=== PATIENT | male | born 1945 | race Caucasian/White ===

== ENCOUNTER → 2016-10-25 | Day surgery (SDC) | payer MEDICARE ==
[~2016-10-25] VITALS: Ht 190.5 cm; Wt 104.4 kg
[~2016-10-25] MED LIST: ACETAMINOPHEN 1000 MG/100 ML VIAL IV ONE; ATOR20TA15 PO; BELLADONNA ALKALOIDS/OPIUM 60 MG SUPP RECTAL PRN; CEPH-459 PO; DEXAMETHASONE SOD PHOS 4 MG/ML VIAL ONE; DILA2TAB2 PO; DO NOT ADM ANY ANTICOAGULANT DRUGS XX PRN; FAMOTIDINE 20 MG/2 ML VIAL ONE; FENT100D T-DERMAL; HOSP BED2; INSULIN HUMAN REGULAR 1,000 UNITS/10 ML VIAL SQ PRN; LACTATED RINGER'S 1000 ML INJ 1,000 ML ONE; LACTATED RINGER'S 1000 ML IV SCH; METO50TA PO; METOCLOPRAMIDE HCL 10 MG/2 ML VIAL ONE; METOPROLOL TARTRATE 25 MG TAB PO PRN; MIDAZOLAM HCL 2 MG/2 ML VIAL ONE; MILKSUS PO; MITOMYCIN SCH; NEOSTIGMINE 3 MG/3 ML SYR IV ONE; NIFE1TAB PO; OMEP40CA2 PO; ONDANSETRON HCL 4 MG/2 ML VIAL IV PUSH ONE; ONDANSETRON HCL 4 MG/2 ML VIAL IV PUSH PRN; OXYC30TA62 PO; PERC5TAB12 PO; POLY17S PO; PRAD150C PO; PROPOFOL 200 MG/20 ML AMP IV ONE; ROLLER WALKER1 MI1; SODIUM CHLORID 0.9% 500 ML IV SCH; STOO100C PO; VESI5TAB PO; WATER STERILE FOR SCH; WHEEMIS3; ZOFR4TAB3 SL; ceFAZolin 2 GM PREMIX 50 ML IV SCH; ceFAZolin 2 GM PREMIX 50 ML ONE; ePHEDrine/NS 25 MG/5 ML SYR IV ONE; mitoMYcin 5 MG VIAL ONE; oxyCODONE/ACETAMINOPHEN 5 MG/325 MG TAB PO PRN
[2016-10-25 10:42] VITALS: BP 128/84; PULSE 89; RESP 16; TEMP 99.4; O2SAT 96
[2016-10-25 11:07] LABS: AUTOMATED NEUTROPHIL # 5.4 TH/MM3 (1.8-7.7); BASOPHIL % 0.3 % (0.0-2.0); EOSINOPHIL # 0.1 TH/MM3 (0-0.4); HEMO FLAGS DIFF FINAL; LYMPH % 12.4 % (9.0-44.0); LYMPHOCYTE # 0.9 TH/MM3 (1.0-4.8); MEAN CELL VOLUME 88.6 FL (80.0-100.0); MEAN CORPUSCULAR HEMOGLOBIN 30.8 PG (27.0-34.0); MEAN CORPUSCULAR HGB CONC 34.7 % (32.0-36.0); MONO % 9.2 % (0.0-8.0); NEUT % 76.1 % (16.0-70.0); PLATELET COUNT 171 TH/MM3 (150-450); RED CELL DISTRIBUTION WIDTH 13.7 % (11.6-17.2); WHITE BLOOD COUNT 7.1 TH/MM3 (4.0-11.0)
--- NOTE | 2016-10-25 14:39 | PD.OP ---
Operative Report Date of Surgery: Oct 25, 2016 Preoperative Diagnosis: (1) Bladder cancer Postoperative Diagnosis: (1) Bladder cancer Procedure: Cystoscopy, will find out transurethral resection of multiple bladder tumors encompassing a surface area greater than 5 cm involving all sides of the bladder and intravesical instillation of mitomycin C. Anesthesia: General Surgeon: Alexys Duncan Inpatient Care Manager Rn(s): None Operation and Findings: Indication for procedure: This very pleasant 70 year-old gentleman who is status post cystoscopy and transurethral resection of multiple bladder tumors last April who presents now with symptoms of hematuria. Recent cystoscopic evaluation demonstrated multiple recurrent bladder tumors involving all areas of the bladder. Presents now for cystoscopy, transurethral resection of recurrent bladder tumors and intravesical instillation of mitomycin C. Findings: Multiple bladder tumors involving all leija of the bladder encompassing a surface area greater than 5 cm. Operative procedure in detail: Patient was brought to the operating room suite and placed supine on the OR table. He was then placed under general anesthesia. He was then repositioned in the dorsolithotomy position and prepped and draped in normal sterile fashion. Cystoscopy was then performed utilizing the rigid cystoscope with a 21 Chadian sheath and 30 lens. There was patent without stricture formation, the prostate was nonobstructing. The urinary bladder was emptied and the patient was noted to have multiple bladder tumors diffusely. Most are on very narrow stalks. The entire surface area was greater than 5 cm. Both right and left ureteral orifices were in correct anatomic position effluxing clear yellow urine. I then exchanged the cystoscope for the resectoscope with the 24 Chadian cutting loop. I then proceeded with transurethral resection of the multiple recurrent bladder tumors. Also tumors were resected the iliac evacuator was utilized to obtain specimen. Next a 20 Chadian 10 cc Saha catheter was placed and the bladder instilled with 40 mg/10 cc of mitomycin-C and the Saha clamped off. The patient was socially transferred to the PACU in stable condition having tolerated the procedures well. Alexys Duncan MD Oct 25, 2016 14:39
[2016-10-25 16:15] VITALS: BP 144/93; PULSE 98; RESP 18; TEMP 98.4; O2SAT 98
== END | disposition home or self-care (01) ==
LOC: HSDC 09:48
PROVIDERS: ATTEND Urology
DX: C67.9 Malignant neoplasm of bladder, unspecified (principal); E78.5 Hyperlipidemia, unspecified
CPT/HCPCS: 00912; 52240; 85025; 88307; J0131; J0690; J1100; J2250; J2405; J2710; J3010; J7120; J9280; J2765

== ENCOUNTER 2016-11-01 09:13 | Inpatient (IN) | payer MEDICARE ==
[~2016-11-01] VITALS: Ht 190.5 cm; Wt 107.9 kg
[~2016-11-01 09:13] MED LIST changes: -ACETAMINOPHEN 1000 MG/100 ML VIAL IV ONE; -BELLADONNA ALKALOIDS/OPIUM 60 MG SUPP RECTAL PRN; -DEXAMETHASONE SOD PHOS 4 MG/ML VIAL ONE; -DILA2TAB2 PO; -DO NOT ADM ANY ANTICOAGULANT DRUGS XX PRN; -FAMOTIDINE 20 MG/2 ML VIAL ONE; -FENT100D T-DERMAL; -HOSP BED2; -INSULIN HUMAN REGULAR 1,000 UNITS/10 ML VIAL SQ PRN; -LACTATED RINGER'S 1000 ML INJ 1,000 ML ONE; -LACTATED RINGER'S 1000 ML IV SCH; -METOCLOPRAMIDE HCL 10 MG/2 ML VIAL ONE; -METOPROLOL TARTRATE 25 MG TAB PO PRN; -MIDAZOLAM HCL 2 MG/2 ML VIAL ONE; -MILKSUS PO; -MITOMYCIN SCH; -NEOSTIGMINE 3 MG/3 ML SYR IV ONE; -ONDANSETRON HCL 4 MG/2 ML VIAL IV PUSH ONE; -ONDANSETRON HCL 4 MG/2 ML VIAL IV PUSH PRN; -POLY17S PO; -PROPOFOL 200 MG/20 ML AMP IV ONE; -ROLLER WALKER1 MI1; -SODIUM CHLORID 0.9% 500 ML IV SCH; -WATER STERILE FOR SCH; -WHEEMIS3; -ZOFR4TAB3 SL; -ceFAZolin 2 GM PREMIX 50 ML IV SCH; -ceFAZolin 2 GM PREMIX 50 ML ONE; -ePHEDrine/NS 25 MG/5 ML SYR IV ONE; -mitoMYcin 5 MG VIAL ONE; -oxyCODONE/ACETAMINOPHEN 5 MG/325 MG TAB PO PRN
[2016-11-01 09:16] VITALS: BP 136/63; PULSE 56; RESP 20; TEMP 98.1; O2SAT 98
[2016-11-01] MEDS ORDERED: ONDANSETRON HCL 4 MG/2 ML VIAL IV PUSH ONE (09:45)
[2016-11-01] MEDS ORDERED: MORPHINE SULFATE 4 MG/ML INJ IV PUSH ONE (09:45)
--- NOTE | 2016-11-01 09:46 | PD ---
HPI Chief Complaint: Pain: Acute or Chronic Time Seen by Provider: 09:25 Travel History International Travel<30 days: No Contact w/Intl Traveler<30days: No Traveled to known affect area: No History of Present Illness HPI The patient is a 71-year-old male who presents emergency department for back pain. The patient has a recent diagnosis of bladder cancer and is undergone 2 surgeries by his urologist, Dr. Duncan. The patient just had his Saha catheter removed this morning by the urologist nurse, however, he came to the emergency department for increasing pain. The patient states the pain is located in the mid right aspect of the lower back and radiates down the right leg. The patient had an outpatient MRI performed by his neurologist, Dr. Tran, which revealed questionable metastasis. The patient states he was followed by his primary physician, Dr. Mendoza, however, he states his physician retired. The patient was referred to see Dr. Day, however, does not have an appointment tomorrow third. Patient is had increasing pain of the last 3 months however, this progressively increased over the last 2 weeks. The patient is requesting pain relief of the lower back pain. He denies any nausea , vomiting, or abdominal pain. PFSH Past Medical History Arthritis: Yes Blood Disorders: No Cancer: Yes (lots of skin cancer/bladder ca) Cardiovascular Problems: Yes (HTN) High Cholesterol: No Endocrine: No Gastrointestinal Disorders: Yes GERD: Yes Genitourinary: Yes (TUMORS IN BLADDER) Hypertension: Yes Immune Disorder: No Kidney Stones: Yes Musculoskeletal: Yes Psychiatric: No Reproductive: No Respiratory: No Tetanus Vaccination: Unknown Past Surgical History Other Surgery: No Social History Alcohol Use: No Tobacco Use: No Substance Use: No Allergies-Medications (Allergen,Severity, Reaction): Coded Allergies: Iodine (Verified Allergy, Unknown, pt states he is not allergic to anymore /contrast, 11/01/16) pt states he is not allergic to anymore/contrast Reported Meds & Prescriptions Reported Meds & Active Scripts Active Percocet (Oxycodone-Acetaminophen) 5-325 mg Tab 1-2 Tab PO Q6H PRN Reported Stool Softener (Docusate Sodium) 100 Mg Cap 1 Tab PO EVERY OTHER DAY Nifedipine ER 24 HR (Nifedipine) 90 Mg Tab 90 Mg PO BID Omeprazole 40 Mg Cap 40 Mg PO DAILY Metoprolol Tartrate 50 Mg Tab 50 Mg PO BID Atorvastatin (Atorvastatin Calcium) 20 Mg Tab 20 Mg PO HS Review of Systems Except as stated in HPI: all other systems reviewed are Neg General / Constitutional: No: Fever Cardiovascular: No: Chest Pain or Discomfort Respiratory: No: Shortness of Breath Gastrointestinal: No: Nausea, Vomiting, Abdominal Pain Genitourinary: Positive: Other (currently being treated for bladder cancer) Musculoskeletal: Positive: Pain (low back pain that radiates down the right leg ) Neurologic: No: Paresthesia, Sensory Disturbance Physical Exam Narrative GENERAL: Awake, alert, 71-year-old male appears his stated age and appears in moderate discomfort. SKIN: Warm and dry. HEAD: Atraumatic. Normocephalic. EYES: Pupils equal and round. No scleral icterus. No injection or drainage. ENT: No nasal bleeding or discharge. Mucous membranes pink and moist. NECK: Trachea midline. No JVD. CARDIOVASCULAR: Regular rate and rhythm. No murmur appreciated. RESPIRATORY: No accessory muscle use. Clear to auscultation. Breath sounds equal bilaterally. GASTROINTESTINAL: Abdomen soft, non-tender, nondistended. No rebound tenderness. Back: No tenderness over the thoracic or lumbar vertebrae. MUSCULOSKELETAL: No obvious deformities. No clubbing. No cyanosis. No edema. NEUROLOGICAL: Awake and alert. No obvious cranial nerve deficits. Motor grossly within normal limits. Normal speech. PSYCHIATRIC: Appropriate mood and affect; insight and judgment normal. Data Data Last Documented VS Vital Signs Date Time Temp Pulse Resp B/P Pulse Ox O2 Delivery O2 Flow Rate FiO2 11/01/16 09:16 98.1 56 20 136/63 98 Orders Morphine Inj (Morphine Inj) (11/01/16 09:45) Ondansetron Inj (Zofran Inj) (11/01/16 09:45) Complete Blood Count With Diff (11/01/16 09:31) Basic Metabolic Panel (Bmp) (11/01/16 09:31) Urinalysis - C+S If Indicated (11/01/16 09:31) Admit Order (Ed Use Only) (11/01/16 10:38) Labs Laboratory Tests Test 11/01/16 09:45 White Blood Count 8.4 TH/MM3 Red Blood Count 5.22 MIL/MM3 Hemoglobin 15.9 GM/DL Hematocrit 45.9 % Mean Corpuscular Volume 87.8 FL Mean Corpuscular Hemoglobin 30.4 PG Mean Corpuscular Hemoglobin 34.6 % Concent Red Cell Distribution Width 13.5 % Platelet Count 291 TH/MM3 Mean Platelet Volume 7.5 FL Neutrophils (%) (Auto) 85.4 % Lymphocytes (%) (Auto) 9.3 % Monocytes (%) (Auto) 4.6 % Eosinophils (%) (Auto) 0.4 % Basophils (%) (Auto) 0.3 % Neutrophils # (Auto) 7.2 TH/MM3 Lymphocytes # (Auto) 0.8 TH/MM3 Monocytes # (Auto) 0.4 TH/MM3 Eosinophils # (Auto) 0.0 TH/MM3 Basophils # (Auto) 0.0 TH/MM3 CBC Comment DIFF FINAL Differential Comment Sodium Level 134 MEQ/L Potassium Level 3.3 MEQ/L Chloride Level 99 MEQ/L Carbon Dioxide Level 20.4 MEQ/L Anion Gap 15 MEQ/L Blood Urea Nitrogen 12 MG/DL Creatinine 1.58 MG/DL Estimat Glomerular Filtration 43 ML/MIN Rate Random Glucose 187 MG/DL Calcium Level 8.7 MG/DL [facility] Medical Decision Making Medical Screen Exam Complete: Yes Emergency Medical Condition: Yes Interpretation(s) MRI lumbar spine with and without contrast performed and [facility] reveals enhancing intraosseous lesion and L2 extending into the right lateral mass, posterior elements, transverse process with surrounding chronic soft tissue and no foraminal involvement, impinging the L2 nerve root, suggestive of metastatic disease until proven otherwise, less likely inflammatory. Second rim enhancing lesion in the sacrum slightly eccentric to the right measures 1.5 cm and a third L defined enhancement of the left sacrum adjacent to the sacroiliac joint. Bone scan screening for call carcinoma suggested. This disease with grade 1 anterolisthesis L4 5. Accommodation of disc herniation and a facet hypertrophy is present no in the neural foramina impinging the L5 nerve roots. There is an underlying pars defect. Disc herniation L5-S1 eccentric to the left. There is left lateral recess narrowing impinging the descending S1 nerve root. There is bilateral foraminal narrowing abutting L5 nerve roots. Laboratory Tests Test 11/01/16 09:45 White Blood Count 8.4 TH/MM3 Red Blood Count 5.22 MIL/MM3 Hemoglobin 15.9 GM/DL Hematocrit 45.9 % Mean Corpuscular Volume 87.8 FL Mean Corpuscular Hemoglobin 30.4 PG Mean Corpuscular Hemoglobin 34.6 % Concent Red Cell Distribution Width 13.5 % Platelet Count 291 TH/MM3 Mean Platelet Volume 7.5 FL Neutrophils (%) (Auto) 85.4 % Lymphocytes (%) (Auto) 9.3 % Monocytes (%) (Auto) 4.6 % Eosinophils (%) (Auto) 0.4 % Basophils (%) (Auto) 0.3 % Neutrophils # (Auto) 7.2 TH/MM3 Lymphocytes # (Auto) 0.8 TH/MM3 Monocytes # (Auto) 0.4 TH/MM3 Eosinophils # (Auto) 0.0 TH/MM3 Basophils # (Auto) 0.0 TH/MM3 CBC Comment DIFF FINAL Differential Comment Sodium Level 134 MEQ/L Potassium Level 3.3 MEQ/L Chloride Level 99 MEQ/L Carbon Dioxide Level 20.4 MEQ/L Anion Gap 15 MEQ/L Blood Urea Nitrogen 12 MG/DL Creatinine 1.58 MG/DL Estimat Glomerular Filtration 43 ML/MIN Rate Random Glucose 187 MG/DL Calcium Level 8.7 MG/DL EKG reveals atrial fibrillation with a rate 82. Inverted T-wave in lead 3. Differential Diagnosis Differential diagnosis includes metastatic cancer, bone metastasis, bladder cancer, sciatica, herniated disc with radiculopathy, chronic pain. Narrative Course IV was established, labs are drawn and sent, and the patient was placed on cardiac telemetry monitoring and continuous pulse oximetry monitoring. We received the MRI report from the patient's neurologist office, Dr. Tran, which reveals an MRI with possibility/suggestive of metastatic disease. Patient received morphine, Zofran, and IV fluids. The patient will be admitted to the medical service with consultation oncology, patient may benefit from neurosurgical evaluation and radiation oncology for possible metastasis and ongoing pain. Creatinine is mildly elevated at 1.58. Patient will be admitted to the medical service. Physician Communication Physician Communication The on-call medical service was paged for admission. I discussed the patient with Dr. Sim who agrees with admission. Diagnosis Primary Impression: Bladder cancer Qualified Code: C67.9 - Malignant neoplasm of urinary bladder, unspecified site Additional Impression: Metastatic bone cancer Admitting Information Admitting Physician Requests: Admit Condition: Stable Adam Fabian MD Nov 01, 2016 09:46 Adam Fabian MD Nov 01, 2016 09:46
[2016-11-01 10:02] LABS: AUTOMATED NEUTROPHIL # 7.2 TH/MM3 (1.8-7.7); BASOPHIL % 0.3 % (0.0-2.0); EOSINOPHIL % 0.4 % (0.0-4.0); HEMATOCRIT 45.9 % (39.0-51.0); HEMO FLAGS DIFF FINAL; LYMPH % 9.3 % (9.0-44.0); LYMPHOCYTE # 0.8 TH/MM3 (1.0-4.8); MEAN CELL VOLUME 87.8 FL (80.0-100.0); MEAN CORPUSCULAR HEMOGLOBIN 30.4 PG (27.0-34.0); MEAN CORPUSCULAR HGB CONC 34.6 % (32.0-36.0); MONO % 4.6 % (0.0-8.0); NEUT % 85.4 % (16.0-70.0); PLATELET COUNT 291 TH/MM3 (150-450); RED BLOOD COUNT 5.22 MIL/MM3 (4.50-5.90); RED CELL DISTRIBUTION WIDTH 13.5 % (11.6-17.2); WHITE BLOOD COUNT 8.4 TH/MM3 (4.0-11.0)
[2016-11-01 10:23] LABS: BICARBONATE 20.4 MEQ/L (21.0-32.0); POTASSIUM 3.3 MEQ/L (3.5-5.1)
--- NOTE | 2016-11-01 11:12 | HHI.HP ---
HPI Service Family Medicine Primary Care Physician No Primary Care Physician Admission Diagnosis bladder cancer with probable bone metastasis, back pain Diagnoses: International Travel<30 Days: No Contact w/Intl Traveler<30days: No Known Affected Area: No History of Present Illness Mr. Ignacio is a 71 y/o CM with a PMHx of urinary bladder carcinoma presents with worsening back pain. He is accompanied by his and younger step-sister who assist with the history. In April of 2016 he was diagnosed with bladder carcinoma after being admitted for urinary retention. He states 5 tumors were removed surgically by Dr. Duncan, urology, with the pathology report of low grade. He did not require any radiation or chemotherapy treatments and was told to follow up in 6 months for routine cystoscopy which showed multiple new tumors. His tumors were surgically removed by Dr. Duncan last week, 10/25/16, with pathology currently pending. Approximately 3 months ago (August) he began having lower back pain. He states that the pain has progressed over that time from a small area in his lower back to his entire lower back and down his R leg to his mid thigh on the anterior and lateral sides. He describes the pain as throbbing with episodes of sharp, shooting, 10/10 pain. He has been on Percocet 5mg and recently increased to 10mg Q6H, but currently is not controlling his pain. An MRI was completed on 10/18 of his lower back was ordered by Dr. Pizano, orthopedic surgeon, to evaluate his pain as he is s/p R hip replacement. The MRI shows a possibility of metastasis to the lumbar spine. Of note, he followed up with Dr. Duncan this morning and had is catheter removed post-procedure He has voided one time with pink-tinged urine. (Dex Burgos MD R1) Review of Systems Constitutional: COMPLAINS OF: Fever, Weight loss, Chills, Dizziness Endocrine: DENIES: Polyphagia Eyes: COMPLAINS OF: Blurred vision Ears, nose, mouth, throat: DENIES: Vertigo, Throat pain, Running Nose Respiratory: DENIES: Cough, Shortness of breath Cardiovascular: DENIES: Chest pain, Palpitations Gastrointestinal: COMPLAINS OF: Constipation, Diarrhea, Nausea, Vomiting Musculoskeletal: COMPLAINS OF: Joint pain, Back pain Integumentary: DENIES: Rash Hematologic/lymphatic: DENIES: Lymphadenopathy Immunologic/allergic: DENIES: Urticaria Neurologic: DENIES: Headache, Seizures Psychiatric: DENIES: Mood changes (Dex Brugos MD R1) Past Family Social History Past Medical History Hypertension Dyslipidemia Skin cancer - Melanoma, SCC Bladder cancer - April 2016 Kidney stones Acid reflux Atrial fibrillation - Pradaxa 150mg BID held due to recent surgery (Dr. Young) Past Surgical History R Hip replacement - Dr. Pziano Bladder cancer removal - April (Pathology all low grade) October 2015 ( Pathology pending) Multiple dermatologic procedures (Dex Burgos MD R1) Allergies: Coded Allergies: Iodine (Verified Allergy, Unknown, pt states he is not allergic to anymore /contrast, 11/01/16) pt states he is not allergic to anymore/contrast Family History Father - [place] at 41 y/o past away Mother - DM, Breast cancer Sister - DM, heart problems Sister - unknown Social History Alcohol - Prior history of alcohol abuse, sober since 2000 Smoke - Denies history Illicit - Denies Code Status: Lives in [place] with , younger step-sister, and step-mother. 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 (Dex Burgos MD R1) Physical Exam Vital Signs Vital Signs Date Time Temp Pulse Resp B/P Pulse Ox O2 Delivery O2 Flow Rate FiO2 11/01/16 09:16 98.1 56 20 136/63 98 Physical Exam GENERAL: Well nourished, well developed 71 y/o CM in no acute distress. Currently wrapped in warm towels as he has a "chill." SKIN: Cool and dry. No rashes, ecchymosis, or trauma appreciated. HEENT: Atraumatic, normocephalic with EOMI. PERRLA. MMM. Oropharynx clear without tonsillar exudate. No palpable LAD, thyromegaly, or thyroid nodules appreciated. No rhinorrhea. CARDIOVASCULAR: RRR with no MGR. RESPIRATORY: CTAB with no CRW. No increased WOB. GASTROINTESTINAL: Abdomen soft, non-tender, nondistended with +BS. No palpable masses. MUSCULOSKELETAL: Extremities without cyanosis or edema. 2+ pulses in all 4 extremities. No CVA tenderness or tenderness over lumbar/thoracic spine. NEUROLOGICAL: AAOx3. Cranial nerves II through XII intact. Motor and sensory grossly within normal limits. Normal speech. Laboratory Laboratory Tests Test 11/01/16 09:45 White Blood Count 8.4 Red Blood Count 5.22 Hemoglobin 15.9 Hematocrit 45.9 Mean Corpuscular Volume 87.8 Mean Corpuscular Hemoglobin 30.4 Mean Corpuscular Hemoglobin 34.6 Concent Red Cell Distribution Width 13.5 Platelet Count 291 Mean Platelet Volume 7.5 Neutrophils (%) (Auto) 85.4 Lymphocytes (%) (Auto) 9.3 Monocytes (%) (Auto) 4.6 Eosinophils (%) (Auto) 0.4 Basophils (%) (Auto) 0.3 Neutrophils # (Auto) 7.2 Lymphocytes # (Auto) 0.8 Monocytes # (Auto) 0.4 Eosinophils # (Auto) 0.0 Basophils # (Auto) 0.0 CBC Comment DIFF FINAL Differential Comment Sodium Level 134 Potassium Level 3.3 Chloride Level 99 Carbon Dioxide Level 20.4 Anion Gap 15 Blood Urea Nitrogen 12 Creatinine 1.58 Estimat Glomerular Filtration 43 Rate Random Glucose 187 Calcium Level 8.7 (Dex Burgos MD R1) Result Diagram: 11/01/16 0945 11/01/16 0945 Assessment and Plan Assessment and Plan Mr. Ignacio is a 71 y/o CM with a PMHx of urinary bladder carcinoma presenting with worsening back pain likely secondary to metastasis to the lumbar spine. Code Status FULL Discussed Condition With Dr. Fabian, ER physician Dr. Marjorie Sim (Dex Burgos MD R1) Attending Attestation Patient seen and examined. Case reviewed and discussed with the resident team. Agree with plan of care as discussed with me and documented in the resident note. he was seen in the ED by me with his and residents present (Yamilet Amador MD) Problem List: (1) Metastatic bone cancer Status: Acute Plan: Patient with history of urinary bladder carcinoma s/p multiple tumor resections presenting with progressing lower back pain. MRI shows possible metastasis to the lumbar spine. He will be admitted for oncology consultation, pain management, and possible therapeutic procedures. MRI Impression from [facility] 1. Enhancing interosseous lesion at L2 extending into the right lateral mass; posterior elements and transverse process with surrounding necrotic soft tissue and neuro foramina involvement, impinging on the L2 nerve root, suggestive of metastatic disease until proven otherwise, less likely inflammatory. Secondary enhancing lesion in the sacrum slightly eccentric to the right measures 1.5 cm and a third ill-defined enhancement of the left sacrum adjacent to the sacroiliac joint. Bone scan and screening for occult carcinoma suggested. 2. Disc disease with grade 1 anterolisthesis L4-L5. Combination of disc herniation and facet hypertrophy is present narrowing the neural for him in a impinging on the L5 nerve roots. There is an underlying pars defect. 3. Herniation L5-S1 eccentric to the left. There is left lateral recess narrowing impinging the descending S1 nerve root. There is bilateral foraminal narrowing abutting the L5 nerve root. Pain Contol: Starbuck 5 mg for pain 1-5 every 6 hours, Starbuck 10 mg for pain 6-10 every 6 hours, morphine 4 mg every 3 hours when necessary for breakthrough pain Consult Oncology, appreciated recommendations Consult Radiation Oncology, appreciate recommendations (2) Bladder cancer Status: Acute Plan: April of 2016 he was diagnosed with bladder carcinoma. 5 tumors were removed surgically by Dr. Duncan, urology, with the pathology report of low grade in April 2016. He did not require any radiation or chemotherapy treatments. Follow up cystoscopy showed multiple new tumors which were surgically removed by Dr. Duncan last week, 10/25/16, with pathology currently pending. Saha catheter removed today in office, patient voided once so far in ER with light pink urine. Strict I/Os monitoring for hematuria Please see plan as above (3) Catheter-associated urinary tract infection Status: Acute Plan: Patient with recent Saha catheter removal (11/01/16). UA concerning for possible UTI with UC to follow. -UA: Protein 30, Moderate occult blood, Large leukocyte esterase, Many WBC clumps, Rare bacteria, Few mucus, No yeast -UC: Pending -Treat with Ceftriaxone 1g QD due to clinical setting (4) Constipation Status: Acute Plan: Patient complaining of constipation likely due to his pain medication at home. He reports no bowel movement in 3 days with his last bowel movement consisting of liquid diarrhea. Dulcolax 10 mg daily when necessary for constipation Milk of magnesia 30 mL twice a day when necessary for constipation Continue to monitor (5) Creatinine elevation Status: Resolved Plan: Patient with serum creatinine of 1.58. Per chart review normal creatinine in April 2016 at 1.15. Creatinine elevated to 1.58 Normal saline at 75 mL per hour Encourage PO fluids with regular diet Continue monitor (6) Atrial fibrillation Status: Chronic Plan: Patient with history of atrial fibrillation seen by Dr. Young. Continue metoprolol 50 mg twice a day Home Pradaxa held prior to his surgery last week with instructions to continue medication 24 hours after Saha catheter was removed and without signs of blood in his urine. Monitor urine for hematuria, likely start anticoagulation tomorrow (7) Acid reflux disease Status: Chronic Plan: Patient with history of acid reflux disease Continue omeprazole 40 mg daily (8) Hyperlipidemia Status: Chronic Plan: Patient with history of hyperlipidemia Continue atorvastatin 20 mg daily at bedtime (9) HTN (hypertension) Status: Chronic Plan: Patient with history of hypertension Continue metoprolol 50 mg twice a day Continue nifedipine 90 mg twice a day Hydralazine 10 mg every 6 hours when necessary for systolic blood pressure greater than 180 or diastolic blood pressure greater than 110 (10) Nutrition, metabolism, and development symptoms Status: Acute Plan: Fluids: NS at 75 ml/hr Diet: Heart healthy as tolerated Electrolytes: Sodium 134, potassium 3.3 (repleted KCl 40 mEq by mouth), creatinine 1.58, glucose 187; continue to monitor GI: Omeprazole daily, Zofran when necessary Preventative: Tylenol when necessary for fever DVT: FIGUEROA/SCDs (Dex Burgos MD R1) Physician Certification 2 Midnight Certification Type: Admission for Inpatient Services Order for Inpatient Services The services are ordered in accordance with Medicare regulations or non- Medicare payer requirements, as applicable. In the case of services not specified as inpatient-only, they are appropriately provided as inpatient services in accordance with the 2-midnight benchmark. Estimated LOS (days): 3 3 days is the estimated time the patient will need to remain in the hospital, assuming treatment plan goals are met and no additional complications. Post-Hospital Plan: Home (Dex Burgos MD R1) Problem Qualifiers (1) Bladder cancer: Qualified Code: C67.9 - Malignant neoplasm of urinary bladder, unspecified site (2) Catheter-associated urinary tract infection: Qualified Code: T83.511A - Urinary tract infection associated with catheterization of urinary tract, unspecified indwelling urinary catheter type, initial encounter (3) Constipation: Qualified Code: K59.03 - Drug-induced constipation (4) Atrial fibrillation: Qualified Code: I48.91 - Atrial fibrillation, unspecified type (5) Acid reflux disease: Qualified Code: K21.9 - Gastroesophageal reflux disease, esophagitis presence not specified (6) Hyperlipidemia: Qualified Code: E78.5 - Hyperlipidemia, unspecified hyperlipidemia type (7) HTN (hypertension): Qualified Code: I10 - Essential hypertension Dex Burgos MD R1 Nov 01, 2016 11:12 Yamilet Amador MD Nov 03, 2016 13:39
[2016-11-01] MEDS ORDERED: SODIUM CHLOR 0.45% 1000 ML INJ 1,000 ML IV SCH (11:59)
[2016-11-01] MEDS ORDERED: POTASSIUM CHLORIDE 10 MEQ CONTROLLED RELEASE TAB PO ONE (12:00)
[2016-11-01] MEDS ORDERED: MAGNESIUM HYDROXIDE SUSP 30 ML CUP PO PRN (12:00)
[2016-11-01] MEDS ORDERED: ACETAMINOPHEN 325 MG TAB PO PRN (12:00)
[2016-11-01] MEDS ORDERED: NALOXONE HCL 0.4 MG/ML AMP IV PRN (12:00)
[2016-11-01] MEDS ORDERED: BISACODYL 10 MG SUPP PR PRN (12:00)
[2016-11-01] MEDS ORDERED: SODIUM CHLORIDE 0.9% FLUSH 5 ML FLUSH FLUSH PRN (12:00)
[2016-11-01] MEDS ORDERED: ACETAMINOPHEN/HYDROcodone 325 MG/5 MG TAB PO PRN (12:00)
[2016-11-01] MEDS: SODIUM CHLORIDE 0.9% FLUSH 5 ML FLUSH FLUSH SCH ×2 (12:52→21:42)
[2016-11-01 13:21] LABS: BACTERIA, URINE RARE /hpf; BLOOD, URINE MOD (NEG); COMMENT (UR) CULTURE INDICATED; CULTURE IF INDICATED CULTURE INDICATED; GLUCOSE,URINE NEG (NEG); KETONE, URINE NEG (NEG); MUCUS URINE FEW /lpf (OCC); NITRITE,URINE NEG (NEG); URINE COLOR YELLOW (YELLW/STRAW)
[2016-11-01 13:43] VITALS: O2SAT 94
[2016-11-01] MEDS: MORPHINE SULFATE 4 MG/ML INJ IV PRN ×2 (13:52→17:11)
[2016-11-01] MEDS ORDERED: hydrALAZINE HCL 10 MG TAB PO PRN (15:15)
[2016-11-01] MEDS ORDERED: ONDANSETRON HCL 4 MG/2 ML VIAL IV PRN (15:30)
[2016-11-01 16:18] LABS: TOTAL BILIRUBIN ADULT 0.5 MG/DL (0.2-1.0)
[2016-11-01 16:21] VITALS: BP 146/68; PULSE 84; RESP 18; O2SAT 97
[2016-11-01 16:30] VITALS: BP 149/88; PULSE 80; RESP 16; TEMP 97.5; O2SAT 97
[2016-11-01 16:32] LABS: INDIRECT BILIRUBIN 0.4 MG/DL (0.0-0.8)
[2016-11-01] MEDS: SODIUM CHLOR 0.9% 1000 ML INJ 1,000 ML IV SCH (17:39)
[2016-11-01] MEDS: MORPHINE SULFATE 4 MG/ML INJ IV PUSH SCH (19:43)
[2016-11-01 20:16] VITALS: BP 141/87; PULSE 85; RESP 18; TEMP 97.7; O2SAT 93
[2016-11-01] MEDS: METOPROLOL TARTRATE 50 MG TAB PO SCH (21:40)
[2016-11-01] MEDS: NIFEdipine 90 MG SUSTAINED RELEASE TAB PO SCH (21:40)
[2016-11-01] MEDS: ATORVASTATIN 20 MG TAB PO SCH (21:40)
[2016-11-01] MEDS: ACETAMINOPHEN/HYDROcodone 325 MG/10 MG TAB PO PRN (21:41)
--- NOTE | 2016-11-01 22:00 | RADRPT ---
EXAM DATE/TIME: 11/01/2016 19:59 [facility] COMPARISON: CT ABDOMEN & PELVIS W/O CONTRAST, April 28, 2016, 3:01. INDICATIONS : Bladder cancer, check for metastatic disease. ORAL CONTRAST: No oral contrast ingested. RADIATION DOSE: 19.65 CTDIvol (mGy) ; Combined studies - Thorax/Abdomen/Pelvis MEDICAL HISTORY : Cardiovascular disease. Hypertension. Gastroesophageal reflux disease.Bladder cancer. SURGICAL HISTORY : Right total hip replacement. ENCOUNTER: Subsequent ACUITY: 2 days PAIN SCALE: 5/10 LOCATION: Bilateral lower quadrant TECHNIQUE: Volumetric scanning of the abdomen and pelvis was performed. Using automated exposure control and ad justment of the mA and/or kV according to patient size, radiation dose was kept as low as reasonably achievable to obtain optimal diagnostic quality images. FINDINGS: LOWER LUNGS: 18 mm nodule has developed posteriorly within the right lung base. Pleural thickening is noted along the left posterior pleural margin. LIVER: Homogeneous density without lesion. There is no dilation of the biliary tree. No calcified gallston es. SPLEEN: Normal size without lesion. PANCREAS: Within normal limits. KIDNEYS: Significant change is noted in the appearance of the right kidney. There is complex masslike enlargem ent involving the upper pole and mid pole. The collecting system remains dilated. There is no proxima l hydroureter. Enlarged lymph node is noted adjacent to the right kidney. It measures 2.5 cm in great est dimension. Single calcification remains evident in the midpole the left kidney. The left kidney c ontains a small bilobed cyst which was seen previously and is unchanged. ADRENAL GLANDS: Within normal limits. VASCULAR: There is no aortic aneurysm. BOWEL/MESENTERY: The stomach, small bowel, and colon demonstrate no acute abnormality. There is no free intraperitone al air or fluid. ABDOMINAL WALL: Within normal limits. RETROPERITONEUM: There is no lymphadenopathy. BLADDER: Bladder is incompletely distended. There is generalized wall thickening. REPRODUCTIVE: Within normal limits. INGUINAL: There is no lymphadenopathy or hernia. MUSCULOSKELETAL: There are no destructive lesions. CONCLUSION: Complex masslike enlargement of the upper and mid poles of the right kidney with associated lymphaden opathy. Chronic right hydronephrosis. New right basilar lung nodule characteristic of metastatic disease. Stable left renal cyst. No acute intestinal abnormality. Pravin Jackman MD on November 01, 2016 at 21:49 Board Certified Radiologist. This report was verified electronically.
--- NOTE | 2016-11-01 22:03 | RADRPT ---
EXAM DATE/TIME: 11/01/2016 19:59 [facility] COMPARISON: No previous studies available for comparison. INDICATIONS : Bladder cancer, evaluate for metastatic disease. RADIATION DOSE: 19.65 CTDIvol (mGy) ; Combined studies - Thorax/Abdomen/Pelvis MEDICAL HISTORY : Cardiovascular disease. Hypertension. Gastroesophageal reflux disease. Bladder cancer. SURGICAL HISTORY : Right total hip replacement. ENCOUNTER: Subsequent ACUITY: 2 days PAIN SCALE: 0/10 LOCATION: chest TECHNIQUE: Volumetric scanning of the chest was performed. Using automated exposure control and adjustment of t he mA and/or kV according to patient size, radiation dose was kept as low as reasonably achievable to obtain optimal diagnostic quality images. FINDINGS: LUNGS: 2 discrete pulmonary nodules are identified. There is an 11 mm nodule in the superior segment of the left lower lobe. A 17-18 mm nodule is identified in the right lung base posteriorly. PLEURAE: Left-sided pleural thickening is identified. MEDIASTINUM: The heart and great vessels demonstrate no acute abnormality. There is no mediastinal or hilar lymph adenopathy. AXILLAE: Within normal limits. No lymphadenopathy. MUSCULOSKELETAL: There are no destructive bone lesions. MISCELLANEOUS: Masslike enlargement of the right kidney is noted. CONCLUSION: Bilateral pulmonary nodules characteristic of metastatic disease. Right renal mass. No evidence of mediastinal or hilar lymphadenopathy. No evidence of destructive bone lesions. Pravin Jackman MD on November 01, 2016 at 21:58 Board Certified Radiologist. This report was verified electronically.
[2016-11-01] MEDS: cefTRIAXone INJ 1,000 MG in SODIUM CHLORIDE 0.9% INJ 100 ML IV SCH (22:12)
[2016-11-02] VITALS (8 sets, daily range): BP systolic 93–127; BP diastolic 55–76; PULSE 68–88; RESP 16–20; TEMP 96.6–98; O2SAT 93–96
[2016-11-02] MEDS: MORPHINE SULFATE 4 MG/ML INJ IV PUSH SCH ×4 (01:41→21:46)
[2016-11-02 07:17] LABS: AUTOMATED NEUTROPHIL # 4.7 TH/MM3 (1.8-7.7); BASOPHIL % 0.4 % (0.0-2.0); EOSINOPHIL # 0.1 TH/MM3 (0-0.4); EOSINOPHIL % 1.8 % (0.0-4.0); HEMATOCRIT 39.4 % (39.0-51.0); HEMO FLAGS DIFF FINAL; LYMPH % 14.7 % (9.0-44.0); LYMPHOCYTE # 0.9 TH/MM3 (1.0-4.8); MEAN CELL VOLUME 90.2 FL (80.0-100.0); MEAN CORPUSCULAR HEMOGLOBIN 30.4 PG (27.0-34.0); MEAN CORPUSCULAR HGB CONC 33.7 % (32.0-36.0); NEUT % 74.1 % (16.0-70.0); PLATELET COUNT 220 TH/MM3 (150-450); RED BLOOD COUNT 4.37 MIL/MM3 (4.50-5.90); RED CELL DISTRIBUTION WIDTH 13.7 % (11.6-17.2); WHITE BLOOD COUNT 6.3 TH/MM3 (4.0-11.0)
[2016-11-02 07:19] LABS: INTERNATIONAL NORMALIZED RATIO 1.1 RATIO; PROTHROMBIN TIME - PATIENT 12.4 SEC (9.8-11.6)
[2016-11-02 07:42] LABS: BICARBONATE 27.4 MEQ/L (21.0-32.0); POTASSIUM 4.1 MEQ/L (3.5-5.1)
--- NOTE | 2016-11-02 07:57 | MB ---
cc: ALEXIS WARNER M.D. DATE OF CONSULTATION: 11/01/2016 REASON FOR CONSULTATION Consult is requested by Dr. Amador for evaluation of urinary bladder cancer. HISTORY OF PRESENT ILLNESS This is a 71-year-old very pleasant white male. He used to see Dr. Mendoza for the last 30 years as he was his primary physician. Dr. Mendoza retired two months ago and the patient does not have a primary physician. The patient was diagnosed with noninvasive superficial urinary bladder cancer last year April by Dr. Duncan when he presented with hematuria. The patient also has a history of kidney stones and a previous history of hematuria.. The patient recently had a routine cystoscopy for six-month surveillance which unfortunately showed multiple new bladder tumors. He underwent transurethral resection of the bladder tumor and the pathology report came back again as low grade noninvasive papillary urothelial carcinoma. The patient went to see Dr. Dnucan his urologist today to remove the Saha catheter. The patient was complaining of severe pain on the right side of his back radiating to the right hip. This pain has been going on for the past month or so. He has a history of right hip replacement by Dr. Tashi Pizano. He thought that this could be hip related to it. Dr. Pizano recommended him to have an MRI of the spine and he was referred to Dr. Enrike Tran neurologist. Dr. Tran had ordered the MRI of the lumbar spine which was performed on October 13. This showed abnormal signal and marrow infiltrative lesion at L2 to the right of the midline with enhancement extending into the right pedicle and the right transverse process with surrounding soft tissue enhancement extending into the right neural foramina and epidural space. There is a second rim enhancing lesion measuring 1.5 cm in the right qamar-sacrum noted. Additional ill-defined enhancement is noted in the left qamar-sacrum which is into the sacroiliac joint. The above findings are worrisome for metastatic disease until proven otherwise. The patient was trying to set up an appointment with an oncologist in view of Dr. Mendoza's fdc. He was scheduled to see Dr. Day, however, Dr. Duncan recommended that he should see Dr. Arias. The patient has not had an appointment with either of them as yet. Since he is now admitted to the hospital, oncology has been consulted and I have been asked to see him for further evaluation. REVIEW OF SYSTEMS The patient states that in the emergency room he had received IV morphine and his pain almost resolved. However, he has not received morphine since he has been on the floor and he is in quite a bit of pain. The patient denies any weight loss or anorexia. He has been complaining of right-sided back pain radiating to the right hip area. He denies any hematuria. He denies any cough or shortness of breath. The rest of the review of systems is negative. PAST MEDICAL HISTORY 1. Hypertension. 2. Hypercholesterolemia. 3. Squamous cell carcinoma of the skin and melanoma. 4. Urinary bladder cancer diagnosed in April 2016 and recently with recurrent disease. 5. History of kidney stones. 6. Gastroesophageal reflux disease. 7. Atrial fibrillation. PAST SURGICAL HISTORY 1. Right hip replacement by Dr. Pizano. 2. Cystoscopy with transurethral resection of bladder tumor in April of last year and also this month. 3. Multiple skin biopsies. ALLERGIES IODINE. FAMILY HISTORY Father from [place]. Mother from breast cancer. The patient has two sisters. SOCIAL HISTORY The patient does not smoke cigarettes, used to drink alcohol but quit in 2000. 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 PHYSICAL EXAMINATION GENERAL: A well-developed, well-nourished elderly white male in no apparent distress. VITAL SIGNS: Temperature 97.5, heart rate 80, blood pressure 149/88. O2 saturation 97%. HEENT: PERRLA. EOMI. Anicteric. No oral lesions are noted. NECK: Supple. LYMPH NODES: There is no cervical, supraclavicular or axillary lymphadenopathy noted. LUNGS: Clear. No wheezing, rhonchi or rales. HEART: Regular rate and rhythm. ABDOMEN: Soft, nontender. No hepatosplenomegaly. EXTREMITIES: No pedal edema. NEUROLOGIC: Awake, alert, oriented x3. SKIN: No significant lesions are noted. ASSESSMENT 1. Noninvasive low grade urinary bladder cancer diagnosed in April 2016. Recently he was found to have recurrent disease which is also superficial urinary bladder cancer, low grade, biopsy-proven. 2. Suspicious lesion in lumbar vertebrae and sacrum highly suspicious for neoplastic disease. 3. Right-sided back pain radiating to the right hip, probably related to the lumbar lesion or kidney. PLAN I have reviewed his available records and I had an extensive discussion with the patient and his who is a respiratory therapist. We discussed about the MRI of the lumbar spine. He has lesions in his bone which are highly suspicious for neoplastic disease. Interestingly, he has noninvasive urinary bladder cancer. He had a CAT scan of the abdomen and pelvis last year April which was negative. I will repeat the CAT scan of the abdomen and pelvis without IV contrast given that he has an elevated creatinine level. I will order the CAT scan of the Chest without IV contrast due to elevated creatinine. I will also get a bone scan. Depending on the above results I will decide about getting a biopsy to confirm metastatic disease. This was explained to the patient and his and both have agreed with that. I will give him morphine 4 mg IV q.6h., and he will have morphine available for p.r.n. doses as well. Further recommendation to follow based on his hospital stay. Thank you for asking my opinion. Melissa Warner MD /BT /7:35 PM /7:32 AM ANTWON
[2016-11-02] MEDS: SODIUM CHLORIDE 0.9% FLUSH 5 ML FLUSH FLUSH SCH ×2 (08:10→21:00)
[2016-11-02] MEDS: METOPROLOL TARTRATE 50 MG TAB PO SCH ×2 (09:05→21:47)
[2016-11-02] MEDS: PANTOPRAZOLE SOD 40 MG DELAYED RELEASE TAB PO SCH (09:05)
[2016-11-02] MEDS: NIFEdipine 90 MG SUSTAINED RELEASE TAB PO SCH ×2 (09:05→21:47)
[2016-11-02] MEDS ORDERED: MORPHINE SULFATE 60 MG CONTROLLED RELEASE TAB PO SCH (09:30)
[2016-11-02] MEDS: SODIUM CHLOR 0.9% 1000 ML INJ 1,000 ML IV SCH ×2 (10:20→21:53)
[2016-11-02] MEDS: MORPHINE SULFATE 30 MG CONTROLLED RELEASE TAB PO SCH ×2 (10:55→21:51)
--- NOTE | 2016-11-02 11:23 | HHI.HP ---
[facility] Service Family Medicine Primary Care Physician No Primary Care Physician Admission Diagnosis bladder cancer with probable bone metastasis, back pain Diagnoses: (1) Metastatic bone cancer Diagnosis: Principal (2) Bladder cancer Diagnosis: Principal (3) Catheter-associated urinary tract infection Diagnosis: Principal (4) Constipation Diagnosis: Principal (5) Creatinine elevation Diagnosis: Principal (6) Atrial fibrillation Diagnosis: Principal (7) Acid reflux disease Diagnosis: Principal (8) Hyperlipidemia Diagnosis: Principal (9) HTN (hypertension) Diagnosis: Principal (10) Nutrition, metabolism, and development symptoms International Travel<30 Days: No Contact w/Intl Traveler<30days: No Known Affected Area: No History of Present Illness Mr. Ignacio is a 71 y/o CM with a PMHx of urinary bladder carcinoma who presented with worsening back pain. He was accompanied by his and younger step-sister who assisted with the history. In April of 2016 he was diagnosed with bladder carcinoma after being admitted for urinary retention. He states 5 tumors were removed surgically by Dr. Duncan, urology, with the pathology report of low grade. He did not require any radiation or chemotherapy treatments and was told to follow up in 6 months for routine cystoscopy which showed multiple new tumors. His tumors were surgically removed by Dr. Duncan last week, 10/25/16, with pathology currently pending. Approximately 3 months ago (August) he began having lower back pain. He states that the pain has progressed over that time from a small area in his lower back to his entire lower back and down his R leg to his mid thigh on the anterior and lateral sides. He describes the pain as throbbing with episodes of sharp, shooting, 10/ 10 pain. He has been on Percocet 5mg and recently increased to 10mg Q6H, but currently was not controlling his pain. An MRI was completed on 10/18 of his lower back was ordered by Dr. Pizano, orthopedic surgeon, to evaluate his pain as he is s/p R hip replacement. The MRI shows a possibility of metastasis to the lumbar spine. Of note, he followed up with Dr. Duncan the morning of admission and had his catheter removed post-procedure He has voided one time with pink-tinged urine. He was seen by Heme Onc and had CTs which showed a renal mass and likely metastatic disease in multiple areas of body. This would be a new and aggressive cancer as it was not present a year ago. A bone scan is scheduled for today with possible bone biopsy depending on the results. Review of Systems Other Constitutional: COMPLAINS OF: Fever, Weight loss, Chills, Dizziness Endocrine: DENIES: Polyphagia Eyes: COMPLAINS OF: Blurred vision Ears, nose, mouth, throat: DENIES: Vertigo, Throat pain, Running Nose Respiratory: DENIES: Cough, Shortness of breath Cardiovascular: DENIES: Chest pain, Palpitations Gastrointestinal: COMPLAINS OF: Constipation, Diarrhea, Nausea, Vomiting Musculoskeletal: COMPLAINS OF: Joint pain, Back pain Integumentary: DENIES: Rash Hematologic/lymphatic: DENIES: Lymphadenopathy Immunologic/allergic: DENIES: Urticaria Neurologic: DENIES: Headache, Seizures Psychiatric: DENIES: Mood changes Past Family Social History Past Medical History Hypertension Dyslipidemia Skin cancer - Melanoma, SCC Bladder cancer - April 2016 Kidney stones Acid reflux Atrial fibrillation - Pradaxa 150mg BID held due to recent surgery (Dr. Young) Past Surgical History R Hip replacement - Dr. Pizano Bladder cancer removal - April (Pathology all low grade) October 2015 ( Pathology pending) Multiple dermatologic procedures Allergies: Coded Allergies: Iodine (Verified Allergy, Unknown, pt states he is not allergic to anymore /contrast, 11/01/16) pt states he is not allergic to anymore/contrast Family History Father - ID at 41 y/o Mother - DM, Breast cancer Sister - DM, heart problems Sister - unknown Social History Alcohol - Prior history of alcohol abuse, sober since 2000 Smoke - Denies history Illicit - Denies Code Status: Lives in [place] with , younger step-sister, and step-mother. 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 Served in [email or web address] and [employer]. Physical Exam Vital Signs Vital Signs Date Time Temp Pulse Resp B/P Pulse Ox O2 Delivery O2 Flow Rate FiO2 11/02/16 11:18 95 21 11/02/16 09:00 98.0 84 18 100/60 95 11/02/16 06:30 113/64 11/02/16 04:00 97.0 71 16 95/66 93 11/02/16 00:16 97.3 76 16 126/76 95 11/01/16 20:16 97.7 85 18 141/87 93 11/01/16 16:30 97.5 80 16 149/88 97 11/01/16 16:21 84 18 146/68 97 11/01/16 13:43 94 21 Physical Exam GENERAL: Well nourished, well developed 71 y/o CM in some pain. wrapped in warm towels in ED as he had a "chill." SKIN: Cool and dry. No rashes, ecchymosis, or trauma appreciated. HEENT: Atraumatic, normocephalic with EOMI. PERRLA. MMM. Oropharynx clear without tonsillar exudate. No palpable LAD, thyromegaly, or thyroid nodules appreciated. No rhinorrhea. CARDIOVASCULAR: RRR with no MGR. RESPIRATORY: CTAB with no CRW. No increased WOB. GASTROINTESTINAL: Abdomen soft, non-tender, nondistended with +BS. No palpable masses. MUSCULOSKELETAL: Extremities without cyanosis or edema. 2+ pulses in all 4 extremities. No CVA tenderness or tenderness over lumbar/thoracic spine. NEUROLOGICAL: AAOx3. Cranial nerves II through XII intact. Motor and sensory grossly within normal limits. Normal speech. Laboratory Laboratory Tests Test 11/01/16 11/02/16 12:40 06:47 Urine Color YELLOW Urine Turbidity HAZY Urine pH 7.0 Urine Specific [place] 1.013 Urine Protein 30 Urine Glucose (UA) NEG Urine Ketones NEG Urine Occult Blood MOD Urine Nitrite NEG Urine Bilirubin NEG Urine Urobilinogen LESS THAN 2.0 Urine Leukocyte Esterase LARGE Urine RBC 74 Urine WBC Urine WBC Clumps MANY Urine Bacteria RARE Urine Mucus FEW Urine Yeast (Budding) Microscopic Urinalysis Comment CULTURE INDICATED White Blood Count 6.3 Red Blood Count 4.37 Hemoglobin 13.3 Hematocrit 39.4 Mean Corpuscular Volume 90.2 Mean Corpuscular Hemoglobin 30.4 Mean Corpuscular Hemoglobin 33.7 Concent Red Cell Distribution Width 13.7 Platelet Count 220 Mean Platelet Volume 7.1 Neutrophils (%) (Auto) 74.1 Lymphocytes (%) (Auto) 14.7 Monocytes (%) (Auto) 9.0 Eosinophils (%) (Auto) 1.8 Basophils (%) (Auto) 0.4 Neutrophils # (Auto) 4.7 Lymphocytes # (Auto) 0.9 Monocytes # (Auto) 0.6 Eosinophils # (Auto) 0.1 Basophils # (Auto) 0.0 CBC Comment DIFF FINAL Differential Comment Prothrombin Time 12.4 Prothromb Time International 1.1 Ratio Sodium Level 140 Potassium Level 4.1 Chloride Level 104 Carbon Dioxide Level 27.4 Anion Gap 9 Blood Urea Nitrogen 14 Creatinine 1.31 Estimat Glomerular Filtration 54 Rate Random Glucose 114 Calcium Level 8.5 Magnesium Level 2.0 Date/Time Procedure Status Source Growth 11/01/16 12:40 Urine Culture Received Urine Clean Catch Pending Result Diagram: 11/02/16 0647 11/02/16 0647 Assessment and Plan Assessment and Plan Mr. Ignacio is a 71 y/o CM with a PMHx of urinary bladder carcinoma presenting with worsening back pain likely secondary to metastasis to the lumbar spine. Now found to have a new CA likely renal being worked up Problem List: (1) Metastatic bone cancer Status: Acute Plan: Patient with history of urinary bladder carcinoma s/p multiple tumor resections presenting with progressing lower back pain. MRI shows possible metastasis to the lumbar spine. He will be admitted for oncology consultation, pain management, and possible therapeutic procedures. MRI Impression from [facility] 1. Enhancing interosseous lesion at L2 extending into the right lateral mass; posterior elements and transverse process with surrounding necrotic soft tissue and neuro foramina involvement, impinging on the L2 nerve root, suggestive of metastatic disease until proven otherwise, less likely inflammatory. Secondary enhancing lesion in the sacrum slightly eccentric to the right measures 1.5 cm and a third ill-defined enhancement of the left sacrum adjacent to the sacroiliac joint. Bone scan and screening for occult carcinoma suggested. 2. Disc disease with grade 1 anterolisthesis L4-L5. Combination of disc herniation and facet hypertrophy is present narrowing the neural for him in a impinging on the L5 nerve roots. There is an underlying pars defect. 3. Herniation L5-S1 eccentric to the left. There is left lateral recess narrowing impinging the descending S1 nerve root. There is bilateral foraminal narrowing abutting the L5 nerve root. Pain Contol: [place] 5 mg for pain 1-5 every 6 hours, [place] 10 mg for pain 6-10 every 6 hours, morphine 4 mg every 3 hours when necessary for breakthrough pain Consult Oncology, appreciated recommendations Consult Radiation Oncology, appreciate recommendations (2) Bladder cancer Status: Acute Plan: April of 2016 he was diagnosed with bladder carcinoma. 5 tumors were removed surgically by Dr. Duncan, urology, with the pathology report of low grade in April 2016. He did not require any radiation or chemotherapy treatments. Follow up cystoscopy showed multiple new tumors which were surgically removed by Dr. Duncan last week, 10/25/16, with pathology currently pending. Saha catheter removed today in office, patient voided once so far in ER with light pink urine. Strict I/Os monitoring for hematuria Please see plan as above (3) Catheter-associated urinary tract infection Status: Acute Plan: Patient with recent Saha catheter removal (11/01/16). UA concerning for possible UTI with UC to follow. -UA: Protein 30, Moderate occult blood, Large leukocyte esterase, Many WBC clumps, Rare bacteria, Few mucus, No yeast -UC: Pending -Treat with Ceftriaxone 1g QD due to clinical setting (4) Constipation Status: Acute Plan: Patient complaining of constipation likely due to his pain medication at home. He reports no bowel movement in 3 days with his last bowel movement consisting of liquid diarrhea. Dulcolax 10 mg daily when necessary for constipation, pt encouraged to ask for this Milk of magnesia 30 mL twice a day when necessary for constipation Continue to monitor (5) Creatinine elevation Status: Acute Plan: Patient with serum creatinine of 1.58. Per chart review normal creatinine in April 2016 at 1.15. Creatinine elevated to 1.58 Normal saline at 75 mL per hour Encourage PO fluids with regular diet Continue monitor (6) Atrial fibrillation Status: Chronic Plan: Patient with history of atrial fibrillation seen by Dr. Young. Continue metoprolol 50 mg twice a day Home Pradaxa held prior to his surgery last week with instructions to continue medication 24 hours after Saha catheter was removed and without signs of blood in his urine. Monitor urine for hematuria, likely start anticoagulation tomorrow (7) Acid reflux disease Status: Chronic Plan: Patient with history of acid reflux disease Continue omeprazole 40 mg daily (8) Hyperlipidemia Status: Chronic Plan: Patient with history of hyperlipidemia Continue atorvastatin 20 mg daily at bedtime (9) HTN (hypertension) Status: Chronic Plan: Patient with history of hypertension Continue metoprolol 50 mg twice a day Continue nifedipine 90 mg twice a day, can review these meds Hydralazine 10 mg every 6 hours when necessary for systolic blood pressure greater than 180 or diastolic blood pressure greater than 110 (10) Nutrition, metabolism, and development symptoms Status: Acute Plan: Fluids: NS at 75 ml/hr for renal fxn Diet: Heart healthy as tolerated Electrolytes: Sodium 134, potassium 3.3 (repleted KCl 40 mEq by mouth), creatinine 1.58, glucose 187; continue to monitor GI: Omeprazole daily, Zofran when necessary Preventative: Tylenol when necessary for fever DVT: FIGUEROA/SCDs as going for probable bone biopsy soon Physician Certification 2 Midnight Certification Type: Admission for Inpatient Services Order for Inpatient Services The services are ordered in accordance with Medicare regulations or non- Medicare payer requirements, as applicable. In the case of services not specified as inpatient-only, they are appropriately provided as inpatient services in accordance with the 2-midnight benchmark. Estimated LOS (days): 4 4 days is the estimated time the patient will need to remain in the hospital, assuming treatment plan goals are met and no additional complications. Post-Hospital Plan: Not yet determined Problem Qualifiers (1) Bladder cancer: Qualified Code: C67.9 - Malignant neoplasm of urinary bladder, unspecified site (2) Catheter-associated urinary tract infection: Qualified Code: T83.511A - Urinary tract infection associated with catheterization of urinary tract, unspecified indwelling urinary catheter type, initial encounter (3) Constipation: Qualified Code: K59.03 - Drug-induced constipation (4) Atrial fibrillation: Qualified Code: I48.91 - Atrial fibrillation, unspecified type (5) Acid reflux disease: Qualified Code: K21.9 - Gastroesophageal reflux disease, esophagitis presence not specified (6) Hyperlipidemia: Qualified Code: E78.5 - Hyperlipidemia, unspecified hyperlipidemia type (7) HTN (hypertension): Qualified Code: I10 - Essential hypertension Yamilet Amador MD Nov 02, 2016 11:23
[2016-11-02] MEDS: ACETAMINOPHEN/HYDROcodone 325 MG/10 MG TAB PO PRN (12:13)
--- NOTE | 2016-11-02 13:46 | PD.CONS ---
[facility] Service Urology Consult Requested By Primary Care Physician Diagnosis: History of Present Illness Came to see patient but he was down getting bone scan. Recommend percutaneous biopsy of either bone or renal lesion, depending upon safest and most reasonable target. Will notify Dr. Duncan Past Family Social History Allergies: Coded Allergies: Iodine (Verified Allergy, Unknown, pt states he is not allergic to anymore /contrast, 11/01/16) pt states he is not allergic to anymore/contrast Physical Exam Vital Signs Vital Signs Date Time Temp Pulse Resp B/P Pulse Ox O2 Delivery O2 Flow Rate FiO2 11/02/16 13:29 96.6 68 20 127/68 96 11/02/16 11:18 95 21 11/02/16 09:00 98.0 84 18 100/60 95 11/02/16 06:30 113/64 11/02/16 04:00 97.0 71 16 95/66 93 11/02/16 00:16 97.3 76 16 126/76 95 11/01/16 20:16 97.7 85 18 141/87 93 11/01/16 16:30 97.5 80 16 149/88 97 11/01/16 16:21 84 18 146/68 97 Physical Exam GENERAL: This is a well-nourished, well-developed patient, in no apparent distress. SKIN: No rashes, ecchymoses or lesions. Cool and dry. HEAD: Atraumatic. Normocephalic. No temporal or scalp tenderness. EYES: Pupils equal round and reactive. Extraocular motions intact. No scleral icterus. No injection or drainage. ENT: Nose without bleeding, purulent drainage or septal hematoma. Throat without erythema, tonsillar hypertrophy or exudate. Uvula midline. Airway patent. NECK: Trachea midline. No JVD or lymphadenopathy. Supple, nontender, no meningeal signs. CARDIOVASCULAR: Regular rate and rhythm without murmurs, gallops, or rubs. RESPIRATORY: Clear to auscultation. Breath sounds equal bilaterally. No wheezes , rales, or rhonchi. GASTROINTESTINAL: Abdomen soft, non-tender, nondistended. No hepato-splenomegaly , or palpable masses. No guarding. GENITOURINARY: MUSCULOSKELETAL: Extremities without clubbing, cyanosis, or edema. No joint tenderness, effusion, or edema noted. No calf tenderness. Negative Homans sign bilaterally. NEUROLOGICAL: Awake and alert. Cranial nerves II through XII intact. Motor and sensory grossly within normal limits. Five out of 5 muscle strength in all muscle groups. Normal speech. Laboratory Laboratory Tests Test 11/02/16 06:47 White Blood Count 6.3 Red Blood Count 4.37 Hemoglobin 13.3 Hematocrit 39.4 Mean Corpuscular Volume 90.2 Mean Corpuscular Hemoglobin 30.4 Mean Corpuscular Hemoglobin 33.7 Concent Red Cell Distribution Width 13.7 Platelet Count 220 Mean Platelet Volume 7.1 Neutrophils (%) (Auto) 74.1 Lymphocytes (%) (Auto) 14.7 Monocytes (%) (Auto) 9.0 Eosinophils (%) (Auto) 1.8 Basophils (%) (Auto) 0.4 Neutrophils # (Auto) 4.7 Lymphocytes # (Auto) 0.9 Monocytes # (Auto) 0.6 Eosinophils # (Auto) 0.1 Basophils # (Auto) 0.0 CBC Comment DIFF FINAL Differential Comment Prothrombin Time 12.4 Prothromb Time International 1.1 Ratio Sodium Level 140 Potassium Level 4.1 Chloride Level 104 Carbon Dioxide Level 27.4 Anion Gap 9 Blood Urea Nitrogen 14 Creatinine 1.31 Estimat Glomerular Filtration 54 Rate Random Glucose 114 Calcium Level 8.5 Magnesium Level 2.0 Date/Time Procedure Status Source Growth 11/01/16 12:40 Urine Culture - Preliminary Resulted Urine Clean Catch NO GROWTH IN 24 HOURS. Result Diagram: 11/02/16 0647 11/02/16 0647 Lior Bryan MD Nov 02, 2016 13:46
--- NOTE | 2016-11-02 14:16 | PD.ONC.PN ---
Subjective Subjective Remarks Afebrile overnight. Patient reports pain in the right hip area, worsened with movement. The pain does not improve with Hydrocodone and he notices the pain halves when he receives the morphine injection. He states the morphine injection works for about 2-3 hours before the pain returns again. Objective Data Date Time Temp Pulse Resp B/P Pulse Ox O2 Delivery O2 Flow Rate FiO2 11/02/16 13:29 96.6 68 20 127/68 96 11/02/16 11:18 95 21 11/02/16 09:00 98.0 84 18 100/60 95 11/02/16 06:30 113/64 11/02/16 04:00 97.0 71 16 95/66 93 11/02/16 00:16 97.3 76 16 126/76 95 11/01/16 20:16 97.7 85 18 141/87 93 11/01/16 16:30 97.5 80 16 149/88 97 11/01/16 16:21 84 18 146/68 97 Result Diagram: 11/02/16 0647 11/02/16 0647 Laboratory Results Laboratory Tests Test 11/02/16 06:47 White Blood Count 6.3 TH/MM3 Red Blood Count 4.37 MIL/MM3 Hemoglobin 13.3 GM/DL Hematocrit 39.4 % Mean Corpuscular Volume 90.2 FL Mean Corpuscular Hemoglobin 30.4 PG Mean Corpuscular Hemoglobin 33.7 % Concent Red Cell Distribution Width 13.7 % Platelet Count 220 TH/MM3 Mean Platelet Volume 7.1 FL Neutrophils (%) (Auto) 74.1 % Lymphocytes (%) (Auto) 14.7 % Monocytes (%) (Auto) 9.0 % Eosinophils (%) (Auto) 1.8 % Basophils (%) (Auto) 0.4 % Neutrophils # (Auto) 4.7 TH/MM3 Lymphocytes # (Auto) 0.9 TH/MM3 Monocytes # (Auto) 0.6 TH/MM3 Eosinophils # (Auto) 0.1 TH/MM3 Basophils # (Auto) 0.0 TH/MM3 CBC Comment DIFF FINAL Differential Comment Prothrombin Time 12.4 SEC Prothromb Time International 1.1 RATIO Ratio Sodium Level 140 MEQ/L Potassium Level 4.1 MEQ/L Chloride Level 104 MEQ/L Carbon Dioxide Level 27.4 MEQ/L Anion Gap 9 MEQ/L Blood Urea Nitrogen 14 MG/DL Creatinine 1.31 MG/DL Estimat Glomerular Filtration 54 ML/MIN Rate Random Glucose 114 MG/DL Calcium Level 8.5 MG/DL Magnesium Level 2.0 MG/DL Culture Results Microbiology Date/Time Procedure Status Source Growth 11/01/16 12:40 Urine Culture - Preliminary Resulted Urine Clean Catch NO GROWTH IN 24 HOURS. Administered Medications Medications (Trade) Dose Ordered Sig/Blair Route PRN Reason Start Time Stop Time Status Last Admin Dose Admin Atorvastatin Calcium (Lipitor) 20 mg HS PO 11/01/16 21:00 11/01/16 21:40 Metoprolol Tartrate (Lopressor) 50 mg BID PO 11/01/16 21:00 11/02/16 09:05 Nifedipine (Procardia Xl) 90 mg BID PO 11/01/16 21:00 11/02/16 09:05 Pantoprazole Sodium (Protonix) 40 mg DAILY PO 11/02/16 09:00 11/02/16 09:05 IV Flush (NS Flush) 2 ml BID FLUSH 11/01/16 12:00 11/02/16 08:10 Acetaminophen/ Hydrocodone Bitart ([place] 5-325 Mg) 1 tab Q4H PRN PO PAIN SCALE 1 TO 5 11/01/16 12:00 11/02/16 06:36 Acetaminophen/ Hydrocodone Bitart ([place] 10-325 Mg) 1 tab Q4H PRN PO PAIN SCALE 6 TO 10 11/01/16 12:00 11/02/16 12:13 Morphine Sulfate 4 mg 4 mg Q3H PRN IV BREAKTHROUGH PAIN 11/01/16 12:00 11/01/16 17:11 Sodium Chloride (NS 1000 ml Inj) 1,000 ml @ 75 mls/hr [id number] IV 11/01/16 15:00 11/02/16 10:20 Morphine Sulfate 4 mg 4 mg Q6H IV PUSH 11/01/16 20:00 11/02/16 12:59 Ceftriaxone Sodium/Sodium Chloride (Rocephin Inj/NS Inj) 100 ml @ 200 mls/hr Q24H IV 11/01/16 22:00 11/01/16 22:12 Morphine Sulfate (Oramorph Sr) 30 mg Q12HR PO 11/02/16 09:30 11/02/16 10:55 Objective Remarks GENERAL: Pleasant elderly male, sitting up in bed in nad. SKIN: Warm and dry. HEAD: Normocephalic. EYES: No scleral icterus. No injection or drainage. NECK: Supple, trachea midline. CARDIOVASCULAR: Regular rate and rhythm RESPIRATORY: Breath sounds equal bilaterally. No accessory muscle use. GASTROINTESTINAL: Abdomen soft, non-tender, nondistended. MUSCULOSKELETAL: No cyanosis, or edema. NEURO: awake and alert, normal speech. Assessment/Plan Problem List: (1) Bladder cancer Status: Acute Plan: 11/02: CT C/A/P today and bone scan today. after bone scan will determine which area is best to biopsy History: --had Noninvasive low grade urinary bladder cancer diagnosed in April 2016. --recently had cystoscopy showed multiple new bladder tumors. --s/p transurethral resection of the bladder tumor and the pathology report came back as low grade noninvasive papillary urothelial carcinoma. --MRI lumbar spine showed abnormal signal and marrow infiltrative lesion at L2 to the right of the midline with enhancement extending into the right pedicle and the right transverse process with surrounding soft tissue enhancement extending into the right neural foramina and epidural space. + second rim enhancing lesion measuring 1.5 cm in the right qamar-sacrum noted. Additional ill-defined enhancement is noted in the left qamar-sacrum which is into SI joint (2) Pain Status: Acute Plan: 11/02: will start MS contin, continue morphine scheduled while awake and for PRN. --Right-sided back pain radiating to the right hip, probably related to the lumbar lesion or kidney. Assessment 71y/o male with urinary bladder cancer h/o Hypertension. Hypercholesterolemia. Squamous cell carcinoma of the skin and melanoma. Urinary bladder cancer diagnosed in April 2016 and recently with recurrent disease. History of kidney stones. gastroesophageal reflux disease. Atrial fibrillation. Attending Statement still c/o right back pain d/w pt and regarding CT C/A/P = Right renal mass with adjacent LAD, pulm nodules and bone lesions. Bone scan is pending. consult Dr Duncan. start MS contin 30 q 12. will decide the site of bx after the bone scan. d/w Dr Amador and resident team The exam, history, and the medical decision-making described in the above note were completed with the assistance of the mid-level provider. I reviewed and agree with the findings presented. I attest that I had a [id number] encounter with the patient on the same day, and personally performed and documented my assessment and findings in the medical record. Problem Qualifiers (1) Bladder cancer: Qualified Code: C67.9 - Malignant neoplasm of urinary bladder, unspecified site Coleen Smith Nov 02, 2016 14:16 Obi Warner MD Nov 02, 2016 19:53
--- NOTE | 2016-11-02 16:14 | RADRPT ---
EXAM DATE/TIME: 11/02/2016 13:20 [place] COMPARISON: None. PRIOR BONE SCANS: No correlative bone scan available for comparison. INDICATIONS : Metastatic disease. Bladder cancer and melanoma. DOSE: 30.1 mCi Tc99m MDP IV IMAGING: SPECT/CT imaging with fusion was performed. RADIATION DOSE: 6.80 CTDIvol (mGy) MEDICAL HISTORY : Hypertension. Gastroesophageal reflux disease. Atrial fibrillation. SURGICAL HISTORY : Tumors in bladder removed, skin cancer removed and right hip replacement one month ago. ENCOUNTER: Initial ACUITY: 2 weeks PAIN SCALE: 7/10 LOCATION: Right Hip. TECHNIQUE: Three hours post intravenous administration of radiotracer, whole body bone scan imaging was performe d. FINDINGS: The examination demonstrates focal areas of abnormal tracer accumulation involving the L1, L2 and L3 vertebral bodies. There at least 3 areas of abnormal tracer accumulation seen within the sacrum. One in the more central portion of the sacrum and 2 within the left sacral ala. These findings are consis tent with metastatic disease. The exam also demonstrates an area of tracer accumulation in the low cervical spine. There is abnorma l tracer accumulation in the thoracic spine at T3 and T5 and in the sixth lateral rib on the left. CONCLUSION: 1. Scattered areas of abnormal tracer accumulation involving the low cervical spine, thoracic spine, the lumbar spine, the right fifth rib and the sacrum concerning for metastatic disease. Esvin Turner MD Board Certified Radiologist. This report was verified electronically.
--- NOTE | 2016-11-02 17:41 | PD.CONS ---
HPI Service Urology Consult Requested By Reason for Consult Right renal mass Primary Care Physician Diagnosis: History of Present Illness 71-year-old gentleman with a history of low-grade bladder cancer who is now admitted for intractable right back pain. Patient was diagnosed with superficial noninvasive bladder cancer in April 2016 and underwent transurethral resection of several small lesions. CT scanning at that time demonstrated a normal left kidney with a small stone. Also noted was an atrophic right kidney with a small stone with either a dilated renal pelvis or parapelvic cyst. Patient recently underwent transurethral resection of several small recurrent bladder tumors and intravesical instillation of mitomycin C on October 25 of this year. Final pathology once again demonstrated low-grade noninvasive disease. Patient presented to my office yesterday to have his indwelling Saha catheter removed and complained of worsening right flank pain and thus was advised to go to the emergency room. The back pain has been present for several months and he had a MRI ordered by his orthopedic surgeon which demonstrated changes to the lumbar spine suspicious for possible metastatic disease. A CT scan was repeated during his present hospitalization which demonstrated a complex masslike enlargement to the mid to upper right kidney with adjacent lymphadenopathy. Also noted was a right lower lung nodule suspicious for metastatic disease. Patient has been seen by Dr. Warner of oncology and had a bone scan study ordered. Results are pending at the time of this consultation. Patient reports that his pain is well managed and is anxious regarding the recent developments. Review of Systems Constitutional: DENIES: Fever Respiratory: DENIES: Cough Cardiovascular: DENIES: Chest pain Gastrointestinal: DENIES: Abdominal pain Genitourinary: COMPLAINS OF: Hematuria (status post recent transurethral resection of recurrent bladder tumors) Musculoskeletal: COMPLAINS OF: Back pain (right lower back radiating to right hip area) Except as stated in HPI: all other systems reviewed are Neg Past Family Social History Past Medical History Superficial noninvasive bladder cancer Squamous cell carcinoma of the skin Hypertension Hypercholesterolemia Past Surgical History Status post transurethral resection of multiple superficial bladder tumors Status post right hip replacement surgery Status post multiple skin biopsies Reported Medications Refer to EMR Allergies: Coded Allergies: Iodine (Verified Allergy, Unknown, pt states he is not allergic to anymore /contrast, 11/01/16) pt states he is not allergic to anymore/contrast Active Ordered Medications Refer to EMR Family History Mother from breast cancer Father from myocardial infarction Social History Denies tobacco, alcohol or intravenous drug abuse Physical Exam Vital Signs Vital Signs Date Time Temp Pulse Resp B/P Pulse Ox O2 Delivery O2 Flow Rate FiO2 11/02/16 13:29 96.6 68 20 127/68 96 11/02/16 11:18 95 21 11/02/16 09:00 98.0 84 18 100/60 95 11/02/16 06:30 113/64 11/02/16 04:00 97.0 71 16 95/66 93 11/02/16 00:16 97.3 76 16 126/76 95 11/01/16 20:16 97.7 85 18 141/87 93 Physical Exam GENERAL: This is a well-nourished, well-developed patient, in no apparent distress. SKIN: No rashes, ecchymoses or lesions. Cool and dry. HEAD: Atraumatic. Normocephalic. No temporal or scalp tenderness. EYES: Pupils equal round and reactive. Extraocular motions intact. No scleral icterus. No injection or drainage. ENT: Nose without bleeding, purulent drainage or septal hematoma. Throat without erythema, tonsillar hypertrophy or exudate. Uvula midline. Airway patent. NECK: Trachea midline. No JVD or lymphadenopathy. Supple, nontender, no meningeal signs. GASTROINTESTINAL: Abdomen soft, non-tender, nondistended. No hepato-splenomegaly , or palpable masses. No guarding. GENITOURINARY: Normal phallus, testes bilaterally descended MUSCULOSKELETAL: Extremities without clubbing, cyanosis, or edema. NEUROLOGICAL: Awake and alert. Cranial nerves II through XII intact. Motor and sensory grossly within normal limits. Normal speech. Laboratory Laboratory Tests Test 11/02/16 06:47 White Blood Count 6.3 Red Blood Count 4.37 Hemoglobin 13.3 Hematocrit 39.4 Mean Corpuscular Volume 90.2 Mean Corpuscular Hemoglobin 30.4 Mean Corpuscular Hemoglobin 33.7 Concent Red Cell Distribution Width 13.7 Platelet Count 220 Mean Platelet Volume 7.1 Neutrophils (%) (Auto) 74.1 Lymphocytes (%) (Auto) 14.7 Monocytes (%) (Auto) 9.0 Eosinophils (%) (Auto) 1.8 Basophils (%) (Auto) 0.4 Neutrophils # (Auto) 4.7 Lymphocytes # (Auto) 0.9 Monocytes # (Auto) 0.6 Eosinophils # (Auto) 0.1 Basophils # (Auto) 0.0 CBC Comment DIFF FINAL Differential Comment Prothrombin Time 12.4 Prothromb Time International 1.1 Ratio Sodium Level 140 Potassium Level 4.1 Chloride Level 104 Carbon Dioxide Level 27.4 Anion Gap 9 Blood Urea Nitrogen 14 Creatinine 1.31 Estimat Glomerular Filtration 54 Rate Random Glucose 114 Calcium Level 8.5 Magnesium Level 2.0 Date/Time Procedure Status Source Growth 11/01/16 12:40 Urine Culture - Preliminary Resulted Urine Clean Catch NO GROWTH IN 24 HOURS. Result Diagram: 11/02/16 0647 11/02/16[address] scan with findings as outlined above Assessment and Plan Assessment and Plan Urologic impression: #1 superficial recurrent bladder cancer status post recent transurethral resection with favorable pathology #2 onset of complex masslike changes to right kidney which may be related to chronic obstruction with infection however malignancy needs to be ruled out #[address] suspicious for metastatic disease Recommendations: #1 continue with analgesic support #2 agree with biopsy to confirm metastatic disease, site to be determined by oncology. Alexys Duncan MD Nov 02, 2016 17:41
[2016-11-02] MEDS: MORPHINE SULFATE 4 MG/ML INJ IV PRN ×2 (18:45→23:39)
[2016-11-02] MEDS: cefTRIAXone INJ 1,000 MG in SODIUM CHLORIDE 0.9% INJ 100 ML IV SCH (21:45)
[2016-11-02] MEDS: ATORVASTATIN 20 MG TAB PO SCH (21:46)
[2016-11-02] MEDS: BISACODYL 10 MG SUPP PR SCH (21:47)
[2016-11-03] VITALS (12 sets, daily range): BP systolic 102–136; BP diastolic 60–79; PULSE 70–92; RESP 16–20; TEMP 96.7–98.4; O2SAT 95–98
[2016-11-03] MEDS: MORPHINE SULFATE 4 MG/ML INJ IV PUSH SCH (02:22)
[2016-11-03] MEDS: MORPHINE SULFATE 4 MG/ML INJ IV PRN ×2 (03:42→09:02)
[2016-11-03] MEDS: MORPHINE SULFATE 8 MG/ML INJ IV PUSH PRN ×4 (06:38→21:16)
[2016-11-03] MEDS: SODIUM CHLOR 0.9% 1000 ML INJ 1,000 ML IV SCH ×2 (06:43→21:34)
[2016-11-03 07:59] LABS: AUTOMATED NEUTROPHIL # 4.5 TH/MM3 (1.8-7.7); BASOPHIL % 0.4 % (0.0-2.0); EOSINOPHIL # 0.2 TH/MM3 (0-0.4); EOSINOPHIL % 2.7 % (0.0-4.0); HEMATOCRIT 37.1 % (39.0-51.0); HEMO FLAGS DIFF FINAL; LYMPHOCYTE # 0.7 TH/MM3 (1.0-4.8); MEAN CELL VOLUME 90.4 FL (80.0-100.0); MEAN CORPUSCULAR HEMOGLOBIN 30.4 PG (27.0-34.0); MEAN CORPUSCULAR HGB CONC 33.7 % (32.0-36.0); MONO % 10.3 % (0.0-8.0); NEUT % 74.6 % (16.0-70.0); PLATELET COUNT 173 TH/MM3 (150-450); RED BLOOD COUNT 4.11 MIL/MM3 (4.50-5.90); RED CELL DISTRIBUTION WIDTH 13.6 % (11.6-17.2)
[2016-11-03] MEDS: MAGNESIUM HYDROXIDE SUSP 30 ML CUP PO SCH ×2 (08:09→21:00)
[2016-11-03] MEDS: MORPHINE SULFATE 60 MG CONTROLLED RELEASE TAB PO SCH ×2 (08:09→21:20)
[2016-11-03] MEDS: NIFEdipine 90 MG SUSTAINED RELEASE TAB PO SCH ×2 (08:09→21:19)
[2016-11-03] MEDS: METOPROLOL TARTRATE 50 MG TAB PO SCH ×2 (08:09→21:20)
[2016-11-03] MEDS: PANTOPRAZOLE SOD 40 MG DELAYED RELEASE TAB PO SCH (08:09)
[2016-11-03 08:23] LABS: BICARBONATE 28.1 MEQ/L (21.0-32.0); POTASSIUM 3.7 MEQ/L (3.5-5.1)
[2016-11-03] MEDS: SODIUM CHLORIDE 0.9% FLUSH 5 ML FLUSH FLUSH SCH ×2 (09:00→21:00)
--- NOTE | 2016-11-03 10:19 | HHI.FPPN ---
Subjective Remarks No acute events overnight. VS unremarkable. This morning patient states that he is doing okay but is complaining of breakthrough pain and constipation. Tried a suppository but only had liquid stool. (Glenis Jacobsen MD R2) Objective Vitals Vital Signs Date Time Temp Pulse Resp B/P Pulse Ox O2 Delivery O2 Flow Rate FiO2 11/03/16 09:54 98 Nasal Cannula 2.00 11/03/16 08:00 86 20 128/79 97 11/03/16 04:20 97.1 92 18 136/71 97 11/03/16 00:00 96.7 88 18 122/64 95 11/02/16 20:20 97.0 83 16 107/59 94 11/02/16 17:30 96.9 88 18 93/55 95 11/02/16 13:29 96.6 68 20 127/68 96 11/02/16 11:18 95 21 I/O 11/02/16 11/02/16 11/02/16 11/03/16 11/03/16 11/03/16 07:00 15:00 23:00 07:00 15:00 23:00 Intake Total 480 ml 480 ml 500 ml Output Total 950 ml 1200 ml 800 ml 2150 ml Balance -950 ml -720 ml -320 ml -1650 ml Intake Oral 480 ml 480 ml 500 ml Output Urine Total 950 ml 1200 ml 800 ml 2150 ml (Glenis Jacobsen MD R2) Result Diagram: 11/03/16 0710 11/03/16 0710 Objective Remarks GEN: Well-developed, well-nourished patient. No acute distress. CV: Regular rate and rhythm without obvious murmurs LUNGS: Clear to auscultation bilaterally. Normal respiratory effort. No wheezes , rales, rhonchi. GI: Soft, mildly distended. No palpable masses. EXT: No edema. No calf tenderness. NEURO/PSYCH: Awake, alert. Appropriate insight and judgment. Normal speech ( Glenis Jacobsen MD R2) A/P Assessment and Plan 71 y/o with a PMHx of urinary bladder carcinoma presenting with worsening back pain likely secondary to metastasis to the lumbar spine. Discharge Planning Timeline unknown. Pending biopsy results and oncology dw Dr. Amador and Dr. Burgos (Glenis Jacobsen MD R2) Attending Attestation Patient seen and examined. Case reviewed and discussed with the resident team. Agree with plan of care as discussed with me and documented in the resident note. he can hopefully get pain relief with radiation plus more definitive treatment per Oncology (Yamilet Amador MD) Problem List: (1) Metastatic disease Status: Acute Plan: Patient with history of urinary bladder carcinoma s/p multiple tumor resections presenting with progressing lower back pain. Suspected to be due to metastasis as evidenced by imaging. Oncology consulted: Appreciate recommendations * CT-guided biopsy ordered * Increase pain meds Urology: appreciate recommendations * Agree with biopsy (bone or renal) * Onset of complex masslike changes to right kidney may be related to chronic obstruction with infection however malignancy needs to be ruled out Radiation Oncology: Appreciate recommendations Imaging: * Chest CT: Bilateral pulmonary nodules characteristic of metastatic disease. Right renal mass. No evidence of mediastinal or hilar lymphadenopathy. No evidence of destructive bone lesions. * CT abdomen: Complex masslike enlargement of the upper and mid poles of the right kidney with associated lymphadenopathy. Chronic right hydronephrosis. New right basilar lung nodule characteristic of metastatic disease. Medications: * Oramorph 30mg BID * Morphine 6mg IV q3hr Relevant Imaging from outside facility MRI Impression from [facility] 1. Enhancing interosseous lesion at L2 extending into the right lateral mass; posterior elements and transverse process with surrounding necrotic soft tissue and neuro foramina involvement, impinging on the L2 nerve root, suggestive of metastatic disease until proven otherwise, less likely inflammatory. Secondary enhancing lesion in the sacrum slightly eccentric to the right measures 1.5 cm and a third ill-defined enhancement of the left sacrum adjacent to the sacroiliac joint. Bone scan and screening for occult carcinoma suggested. 2. Disc disease with grade 1 anterolisthesis L4-L5. Combination of disc herniation and facet hypertrophy is present narrowing the neural for him in a impinging on the L5 nerve roots. There is an underlying pars defect. 3. Herniation L5-S1 eccentric to the left. There is left lateral recess narrowing impinging the descending S1 nerve root. There is bilateral foraminal narrowing abutting the L5 nerve root (2) Bladder cancer Status: Acute Plan: April of 2016 he was diagnosed with bladder carcinoma. Surgical resection by Dr. Duncan, urology, with the pathology report of low grade in April 2016. He did not require any radiation or chemotherapy treatments. Follow up cystoscopy showed multiple new tumors which were surgically removed by Dr. Duncan last week, 10/25/16, with pathology currently pending. -UA on admission showed elevated leukocytosis and moderate blood which may have been due to recent removal of Saha. Was treated empirically with Rocephin 2. Discontinue 11/03 as urine culture was negative 48 hours See plan above (3) Atrial fibrillation Status: Chronic Plan: Patient with history of atrial fibrillation seen by Dr. Young. Continue metoprolol 50 mg twice a day Home Pradaxa held prior to his surgery last week with instructions to continue medication 24 hours after Saha catheter was removed and without signs of blood in his urine. Monitor urine for hematuria, likely start anticoagulation tomorrow (4) Constipation Status: Acute Plan: Patient complaining of constipation likely due to his pain medication at home. Last bowel movement consisting of liquid diarrhea. -Added MiraLAX -Continue milk of magnesia and Dulcolax --Continue fluids to help with constipation (5) Creatinine elevation Status: Resolved Plan: Improved renal function with most recent creatinine of 1.3 Per chart review normal creatinine in April 2016 at 1.15. Normal saline at 75 mL per hour Encourage PO fluids with regular diet Continue monitor (6) Nutrition, metabolism, and development symptoms Status: Acute Plan: Fluids: NS at 75 ml/hr Diet: Heart healthy as tolerated Electrolytes: Unremarkable, continue to monitor. GI: Omeprazole daily DVT: FIGUEROA/SCDs as patient getting biopsy Chronic conditions: * HLD: Continue atorvastatin 20 mg daily * HTN: Continue nifedipine 90 mg twice a day (Glenis Jacobsen MD R2) Problem Qualifiers (1) Bladder cancer: Qualified Code: C67.9 - Malignant neoplasm of urinary bladder, unspecified site (2) Atrial fibrillation: Qualified Code: I48.91 - Atrial fibrillation, unspecified type (3) Constipation: Qualified Code: K59.03 - Drug-induced constipation Glenis Jacobsen MD R2 Nov 03, 2016 10:19 Yamilet Amador MD Nov 03, 2016 13:40 Qualified Code: T83.511A - Urinary tract infection associated with catheterization of urinary tract, unspecified indwelling urinary catheter type, initial encounter (3) Constipation: Qualified Code: K59.03 - Drug-induced constipation (4) Atrial fibrillation: Qualified Code: I48.91 - Atrial fibrillation, unspecified type (5) Acid reflux disease: Qualified Code: K21.9 - Gastroesophageal reflux disease, esophagitis presence not specified (6) Hyperlipidemia: Qualified Code: E78.5 - Hyperlipidemia, unspecified hyperlipidemia type (7) HTN (hypertension): Qualified Code: I10 - Essential hypertension Glenis Jacobsen MD R2 Nov 03, 2016 10:19
[2016-11-03] MEDS: POLYETHYLENE GLYCOL 17 GM PKG PO SCH (10:30)
[2016-11-03 11:10] LABS: APTT (PATIENT) 30.9 SEC (24.3-30.1)
[2016-11-03] MEDS ORDERED: ENALAPRILAT 1.25 MG/ML VIAL IV PRN (11:30)
[2016-11-03] MEDS ORDERED: LIDOCAINE 1%/EPINEPHrine 1:100,000 SOLN 20 ML VIAL ONE (12:56)
[2016-11-03] MEDS ORDERED: MIDAZOLAM HCL 5 MG/5 ML VIAL ONE (13:12)
[2016-11-03] MEDS ORDERED: fentaNYL CITRATE 250 MCG/5 ML AMP ONE (13:12)
--- NOTE | 2016-11-03 13:17 | PD.ONC.PN ---
Subjective Subjective Remarks Afebrile overnight. Patient complaining of pain in the right hip, radiating to back and right groin area. He states the pain has been improved since starting long acting pain medication. Objective Data Date Time Temp Pulse Resp B/P Pulse Ox O2 Delivery O2 Flow Rate FiO2 11/03/16 12:00 97.6 86 20 107/60 97 11/03/16 09:54 98 Nasal Cannula 2.00 11/03/16 08:00 86 20 128/79 97 11/03/16 04:20 97.1 92 18 136/71 97 11/03/16 00:00 96.7 88 18 122/64 95 11/02/16 20:20 97.0 83 16 107/59 94 11/02/16 17:30 96.9 88 18 93/55 95 11/02/16 13:29 96.6 68 20 127/68 96 11/03/16 11/03/16 11/03/16 07:00 15:00 23:00 Intake Total 500 ml Output Total 2150 ml Balance -1650 ml Result Diagram: 11/03/16 0710 11/03/16 0710 Laboratory Results Laboratory Tests Test 11/03/16 11/03/16 07:10 10:39 White Blood Count 6.0 TH/MM3 Red Blood Count 4.11 MIL/MM3 Hemoglobin 12.5 GM/DL Hematocrit 37.1 % Mean Corpuscular Volume 90.4 FL Mean Corpuscular Hemoglobin 30.4 PG Mean Corpuscular Hemoglobin 33.7 % Concent Red Cell Distribution Width 13.6 % Platelet Count 173 TH/MM3 Mean Platelet Volume 7.3 FL Neutrophils (%) (Auto) 74.6 % Lymphocytes (%) (Auto) 12.0 % Monocytes (%) (Auto) 10.3 % Eosinophils (%) (Auto) 2.7 % Basophils (%) (Auto) 0.4 % Neutrophils # (Auto) 4.5 TH/MM3 Lymphocytes # (Auto) 0.7 TH/MM3 Monocytes # (Auto) 0.6 TH/MM3 Eosinophils # (Auto) 0.2 TH/MM3 Basophils # (Auto) 0.0 TH/MM3 CBC Comment DIFF FINAL Differential Comment Sodium Level 141 MEQ/L Potassium Level 3.7 MEQ/L Chloride Level 105 MEQ/L Carbon Dioxide Level 28.1 MEQ/L Anion Gap 8 MEQ/L Blood Urea Nitrogen 13 MG/DL Creatinine 1.30 MG/DL Estimat Glomerular Filtration 54 ML/MIN Rate Random Glucose 123 MG/DL Calcium Level 8.2 MG/DL Activated Partial 30.9 SEC Thromboplast Time Culture Results Microbiology Date/Time Procedure Status Source Growth 11/01/16 12:40 Urine Culture - Final Complete Urine Clean Catch NO GROWTH IN 48 HOURS. Administered Medications Medications (Trade) Dose Ordered Sig/Blair Route PRN Reason Start Time Stop Time Status Last Admin Dose Admin Atorvastatin Calcium (Lipitor) 20 mg HS PO 11/01/16 21:00 11/02/16 21:46 Metoprolol Tartrate (Lopressor) 50 mg BID PO 11/01/16 21:00 11/03/16 08:09 Nifedipine (Procardia Xl) 90 mg BID PO 11/01/16 21:00 11/03/16 08:09 Pantoprazole Sodium (Protonix) 40 mg DAILY PO 11/02/16 09:00 11/03/16 08:09 IV Flush (NS Flush) 2 ml BID FLUSH 11/01/16 12:00 11/03/16 09:00 Morphine Sulfate 4 mg 4 mg Q3H PRN IV PAIN SCALE 1 TO 4 11/01/16 12:00 11/03/16 09:02 Sodium Chloride (NS 1000 ml Inj) 1,000 ml @ 75 mls/hr [id number] IV 11/01/16 15:00 11/03/16 06:43 Morphine Sulfate (Morphine Inj) 6 mg Q3HR PRN IV PUSH PAIN SCALE 5 TO 10 11/02/16 16:00 11/03/16 06:38 Bisacodyl (Dulcolax Supp) 10 mg HS NM 11/02/16 21:00 11/02/16 21:47 Magnesium Hydroxide (Milk Of Magnesia Liq) 30 ml Q12H PO 11/03/16 09:00 11/03/16 08:09 Morphine Sulfate (Oramorph Sr) 60 mg Q12HR PO 11/03/16 09:00 11/03/16 08:09 Objective Remarks GENERAL: Elderly male, sitting up in bed, resting. SKIN: Warm and dry. HEAD: Normocephalic. EYES: No scleral icterus. No injection or drainage. NECK: Supple, trachea midline. CARDIOVASCULAR: Regular rate and rhythm RESPIRATORY: Breath sounds equal bilaterally. No accessory muscle use. GASTROINTESTINAL: Abdomen soft, non-tender, nondistended. MUSCULOSKELETAL: No cyanosis, or edema. NEURO: AO x3. normal speech. moving all extremities. Assessment/Plan Problem List: (1) Bladder cancer Status: Acute Plan: 11/03/16: biopsy in invasive radiology today 11/02: CT C/A/P today and bone scan today. after bone scan will determine which area is best to biopsy History: --had Noninvasive low grade urinary bladder cancer diagnosed in April 2016. --recently had cystoscopy showed multiple new bladder tumors. --s/p transurethral resection of the bladder tumor and the pathology report came back as low grade noninvasive papillary urothelial carcinoma. --MRI lumbar spine showed abnormal signal and marrow infiltrative lesion at L2 to the right of the midline with enhancement extending into the right pedicle and the right transverse process with surrounding soft tissue enhancement extending into the right neural foramina and epidural space. + second rim enhancing lesion measuring 1.5 cm in the right qamar-sacrum noted. Additional ill-defined enhancement is noted in the left qamar-sacrum which is into SI joint (2) Pain Status: Acute Plan: 11/03: increase Oramorph to 60mg PO BID. stop scheduled morphine. continue PRN morphine 11/02: will start MS contin, continue morphine scheduled while awake and for PRN. --Right-sided back pain radiating to the right hip, probably related to the lumbar lesion or kidney. (3) Atrial fibrillation Status: Chronic Plan: --follows with Dr. Young --takes Pradaxa 150mg PO BID at home has been on hold since 10/21. Assessment 71y/o male with urinary bladder cancer h/o Hypertension. Hypercholesterolemia. Squamous cell carcinoma of the skin and melanoma. Urinary bladder cancer diagnosed in April 2016 and recently with recurrent disease. History of kidney stones. gastroesophageal reflux disease. Atrial fibrillation. Attending Statement julieta has significant pain Change MS contin from 30 to 60 mg D/w IR Dr Meyer regarding the site for bx. He will do the kidney bx today. PTT is pending. d/w pt and . will follow The exam, history, and the medical decision-making described in the above note were completed with the assistance of the mid-level provider. I reviewed and agree with the findings presented. I attest that I had a [id number] encounter with the patient on the same day, and personally performed and documented my assessment and findings in the medical record. Problem Qualifiers (1) Bladder cancer: Qualified Code: C67.9 - Malignant neoplasm of urinary bladder, unspecified site (2) Atrial fibrillation: Qualified Code: I48.91 - Atrial fibrillation, unspecified type Coleen Smith Nov 03, 2016 13:17 Obi Warner MD Nov 03, 2016 21:46
[2016-11-03] MEDS ORDERED: THROMBIN (TOPICAL) 5,000 UNIT VIAL ONE (14:54)
[2016-11-03 15:58] LABS: AUTOMATED NEUTROPHIL # 4.2 TH/MM3 (1.8-7.7); BASOPHIL % 0.3 % (0.0-2.0); EOSINOPHIL # 0.2 TH/MM3 (0-0.4); EOSINOPHIL % 2.7 % (0.0-4.0); HEMATOCRIT 38.5 % (39.0-51.0); HEMO FLAGS DIFF FINAL; LYMPH % 25.2 % (9.0-44.0); LYMPHOCYTE # 1.7 TH/MM3 (1.0-4.8); MEAN CORPUSCULAR HEMOGLOBIN 30.7 PG (27.0-34.0); MEAN CORPUSCULAR HGB CONC 34.2 % (32.0-36.0); MONO % 10.5 % (0.0-8.0); NEUT % 61.3 % (16.0-70.0); PLATELET COUNT 219 TH/MM3 (150-450); RED BLOOD COUNT 4.27 MIL/MM3 (4.50-5.90); RED CELL DISTRIBUTION WIDTH 13.7 % (11.6-17.2); WHITE BLOOD COUNT 6.9 TH/MM3 (4.0-11.0)
--- NOTE | 2016-11-03 16:23 | RADRPT ---
EXAM DATE/TIME: 11/03/2016 14:31 [facility] COMPARISON: No previous studies available for comparison. INDICATIONS : Right renal mass. SEDATION TIME: 30 minutes BIOPSY SITE: Right kidney MEDICATION(S): 1.) 1.5 mg midazolam (Versed) IV 2.) 75 mcg fentanyl (Sublimaze) IV DEVICE(S): 1.) 18 gauge Baldwin blunt needle 2.) 20 gauge Temno core biopsy needle MEDICAL HISTORY : Gastroesophageal reflux disease. Renal calculi. Carcinoma, bladder. Skin cancer. Hypertension. SURGICAL HISTORY : None. ENCOUNTER: Initial ACUITY: 1 day PAIN SCORE: 0/10 LOCATION: Right kidney A total of three core specimen(s) were obtained and sent to the laboratory for pathologic evaluation. PROCEDURE: 1. CT guided right renal biopsy. 2. Conscious sedation with continuous EKG and oximetry monitoring. 3. EKG and oximetry remained stable throughout the procedure. Prior to the procedure informed consent was obtained. Any appropriate prior imaging studies were rev iewed. Using automated exposure control and adjustment of the mA and/or kV according to patient size, radiat ion dose was kept as low as reasonably achievable to obtain optimal diagnostic quality images. The site was prepped in a sterile fashion. Full sterile technique was used, including cap, mask, jerzy rile gloves and gown and a large sterile sheet. Hand hygiene and 2% chlorhexidine and/or betadine/al cohol prep was utilized per protocol for cutaneous antisepsis. The skin and subcutaneous tissues wer e infiltrated with local anesthetic solution. With CT guidance the previously identified target was localized. Biopsy was performed using the presc ribed needle as above. Adequate hemostasis was obtained with compression at the puncture site. Follow-up CT scan reveals no hemorrhage. The patient tolerated the procedure well and there were no complications. The patient was returned to the Radiology Outpatient Unit in stable condition. CONCLUSION: Uncomplicated CT guided biopsy. Donny Meyer MD on November 03, 2016 at 16:22 Board Certified Radiologist. This report was verified electronically.
[2016-11-03 17:55] LABS: AUTOMATED NEUTROPHIL # 4.5 TH/MM3 (1.8-7.7); BASOPHIL % 0.3 % (0.0-2.0); EOSINOPHIL # 0.1 TH/MM3 (0-0.4); EOSINOPHIL % 2.4 % (0.0-4.0); HEMATOCRIT 36.6 % (39.0-51.0); HEMO FLAGS DIFF FINAL; LYMPH % 13.6 % (9.0-44.0); LYMPHOCYTE # 0.8 TH/MM3 (1.0-4.8); MEAN CELL VOLUME 90.1 FL (80.0-100.0); MEAN CORPUSCULAR HEMOGLOBIN 30.6 PG (27.0-34.0); MONO % 9.8 % (0.0-8.0); NEUT % 73.9 % (16.0-70.0); PLATELET COUNT 213 TH/MM3 (150-450); RED BLOOD COUNT 4.06 MIL/MM3 (4.50-5.90); RED CELL DISTRIBUTION WIDTH 13.8 % (11.6-17.2)
[2016-11-03] MEDS: ATORVASTATIN 20 MG TAB PO SCH (21:21)
[2016-11-03] MEDS: BISACODYL 10 MG SUPP PR SCH (21:21)
[2016-11-04] VITALS (7 sets, daily range): BP systolic 122–137; BP diastolic 66–89; PULSE 90–104; RESP 16–18; TEMP 96.3–98.8; O2SAT 94–97
[2016-11-04] MEDS: MORPHINE SULFATE 8 MG/ML INJ IV PUSH PRN ×5 (03:26→23:39)
[2016-11-04 03:55] LABS: BLOOD, URINE LARGE (NEG); COMMENT (UR) CULTURE INDICATED; CULTURE IF INDICATED CULTURE INDICATED; GLUCOSE,URINE NEG (NEG); KETONE, URINE NEG (NEG); MUCUS URINE FEW /lpf (OCC); NITRITE,URINE NEG (NEG); PH, URINE 5.5 (5.0-8.5); URINE COLOR YELLOW (YELLW/STRAW)
[2016-11-04 07:47] LABS: AUTOMATED NEUTROPHIL # 3.5 TH/MM3 (1.8-7.7); BASOPHIL % 0.2 % (0.0-2.0); EOSINOPHIL # 0.1 TH/MM3 (0-0.4); EOSINOPHIL % 2.6 % (0.0-4.0); HEMATOCRIT 36.5 % (39.0-51.0); HEMO FLAGS DIFF FINAL; LYMPH % 14.7 % (9.0-44.0); LYMPHOCYTE # 0.7 TH/MM3 (1.0-4.8); MEAN CELL VOLUME 89.5 FL (80.0-100.0); MEAN CORPUSCULAR HEMOGLOBIN 31.1 PG (27.0-34.0); MEAN CORPUSCULAR HGB CONC 34.8 % (32.0-36.0); NEUT % 72.5 % (16.0-70.0); PLATELET COUNT 171 TH/MM3 (150-450); RED BLOOD COUNT 4.08 MIL/MM3 (4.50-5.90); RED CELL DISTRIBUTION WIDTH 13.5 % (11.6-17.2); WHITE BLOOD COUNT 4.9 TH/MM3 (4.0-11.0)
[2016-11-04 07:58] LABS: BICARBONATE 29.4 MEQ/L (21.0-32.0); POTASSIUM 3.4 MEQ/L (3.5-5.1)
[2016-11-04] MEDS: SODIUM CHLORIDE 0.9% FLUSH 5 ML FLUSH FLUSH SCH ×2 (07:59→20:21)
[2016-11-04] MEDS: NIFEdipine 90 MG SUSTAINED RELEASE TAB PO SCH ×2 (07:59→20:18)
[2016-11-04] MEDS: PANTOPRAZOLE SOD 40 MG DELAYED RELEASE TAB PO SCH (07:59)
[2016-11-04] MEDS: MAGNESIUM HYDROXIDE SUSP 30 ML CUP PO SCH ×2 (08:01→20:18)
[2016-11-04] MEDS: POLYETHYLENE GLYCOL 17 GM PKG PO SCH (08:06)
[2016-11-04] MEDS: METOPROLOL TARTRATE 50 MG TAB PO SCH ×2 (09:00→20:17)
[2016-11-04] MEDS: MORPHINE SULFATE 60 MG CONTROLLED RELEASE TAB PO SCH ×2 (09:28→20:17)
[2016-11-04] MEDS: SODIUM CHLOR 0.9% 1000 ML INJ 1,000 ML IV SCH (09:29)
--- NOTE | 2016-11-04 10:33 | HHI.FPPN ---
Subjective Remarks Patient seen and examined this morning. No acute events overnight with vital signs stable. Patient reports renal biopsy was well yesterday and is eager to her know results. His only concern today is continued constipation, but does state that his pain is controlled on the oral morphine. He does endorse passing gas. He denies any fevers, chills, shortness of breath, chest pain, NVD, or calf tenderness. (Dex Burgos MD R1) Objective Vitals Vital Signs Date Time Temp Pulse Resp B/P Pulse Ox O2 Delivery O2 Flow Rate FiO2 11/04/16 09:29 96 21 11/04/16 08:47 96.8 90 16 124/82 97 11/04/16 04:16 98.8 90 18 126/66 97 11/04/16 00:00 98.1 95 18 122/74 97 11/03/16 20:20 98.0 73 16 102/64 96 11/03/16 17:10 96 Nasal Cannula 2.00 11/03/16 17:00 71 16 123/68 96 11/03/16 16:30 70 16 127/75 96 11/03/16 16:00 72 16 121/73 96 11/03/16 15:30 72 16 118/76 96 11/03/16 15:15 98.4 73 16 114/78 96 11/03/16 12:00 97.6 86 20 107/60 97 I/O 11/03/16 11/03/16 11/03/16 11/04/16 11/04/16 11/04/16 07:00 15:00 23:00 07:00 15:00 23:00 Intake Total 500 ml 0 ml Output Total 2150 ml 1300 ml 1000 ml Balance -1650 ml -1300 ml -1000 ml Intake Oral 500 ml 0 ml Output Urine Total 2150 ml 1300 ml 1000 ml # Bowel Movements 0 (Dex Burgos MD R1) Result Diagram: 11/04/16 0611 11/04/16 0611 Objective Remarks GEN: Well-developed, well-nourished patient. No acute distress. Lying comfortably in bed with at bedside. CV: Regular rate and rhythm without obvious MGR. LUNGS: Clear to auscultation bilaterally. Normal respiratory effort. No wheezes , rales, rhonchi. GI: Soft, mildly distended with +BS. No palpable masses. EXT: No edema. No calf tenderness. NEURO/PSYCH: Awake, alert. Appropriate insight and judgment. Normal speech ( Dex Burgos MD R1) A/P Assessment and Plan Mr. 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 Discharge Planning Timeline unknown. Pending biopsy results and oncology recommendations WDW: Dr. Amador DW: Dr. Sim (Dex Burgos MD R1) Attending Attestation Patient seen and examined. Case reviewed and discussed with the resident team. Agree with plan of care as discussed with me and documented in the resident note. (Yamilet Amador MD) Problem List: (1) Metastatic disease Status: Acute Plan: Patient with history of urinary bladder carcinoma s/p multiple tumor resections presenting with progressing lower back pain. Suspected to be due to metastasis as evidenced by imaging. Oncology consulted: Appreciate recommendations * CT-guided renal biopsy 11/03: Pathology pending * Increased Oramorph from 30 to 60mg BID Morphine 4mg IV Q3H PRN for breakthrough Urology: appreciate recommendations * Agree with biopsy (bone or renal) * Onset of complex masslike changes to right kidney may be related to chronic obstruction with infection however malignancy needs to be ruled out Radiation Oncology: Appreciate recommendations Imaging: * Chest CT: Bilateral pulmonary nodules characteristic of metastatic disease. Right renal mass. No evidence of mediastinal or hilar lymphadenopathy. No evidence of destructive bone lesions. * CT abdomen: Complex masslike enlargement of the upper and mid poles of the right kidney with associated lymphadenopathy. Chronic right hydronephrosis. New right basilar lung nodule characteristic of metastatic disease. Medications: * Oramorph 60mg BID * Morphine 4mg IV q3hr Relevant Imaging from outside facility MRI Impression from [facility] 1. Enhancing interosseous lesion at L2 extending into the right lateral mass; posterior elements and transverse process with surrounding necrotic soft tissue and neuro foramina involvement, impinging on the L2 nerve root, suggestive of metastatic disease until proven otherwise, less likely inflammatory. Secondary enhancing lesion in the sacrum slightly eccentric to the right measures 1.5 cm and a third ill-defined enhancement of the left sacrum adjacent to the sacroiliac joint. Bone scan and screening for occult carcinoma suggested. 2. Disc disease with grade 1 anterolisthesis L4-L5. Combination of disc herniation and facet hypertrophy is present narrowing the neural for him in a impinging on the L5 nerve roots. There is an underlying pars defect. 3. Herniation L5-S1 eccentric to the left. There is left lateral recess narrowing impinging the descending S1 nerve root. There is bilateral foraminal narrowing abutting the L5 nerve root (2) Bladder cancer Status: Chronic Plan: April of 2016 he was diagnosed with bladder carcinoma. Surgical resection by Dr. Duncan, urology, with the pathology report of low grade in April 2016. He did not require any radiation or chemotherapy treatments. Follow up cystoscopy showed multiple new tumors which were surgically removed by Dr. Dnucan last week, 10/25/16, with pathology currently pending. -UA on admission showed elevated leukocytosis and moderate blood which may have been due to recent removal of Saha. Was treated empirically with Rocephin 2. Discontinue 11/03 as urine culture was negative 48 hours -Repeat UA on 11/04 showed continued leukocytosis and moderate blood with leukocyte esterase. Continue to monitor. See plan above (3) Atrial fibrillation Status: Chronic Plan: Patient with history of atrial fibrillation seen by Dr. Young. Continue metoprolol 50 mg twice a day Home Pradaxa held prior to his surgery last week with instructions to continue medication 24 hours after Saha catheter was removed and without signs of blood in his urine. Monitor urine for continued hematuria, likely start anticoagulation within 1-2 days (4) Constipation Status: Resolved Plan: Patient complaining of constipation likely due to his pain medication at home. Last bowel movement consisting of liquid diarrhea on 10/29. -Added MiraLAX -Continue milk of magnesia and Dulcolax -Continue fluids to help with constipation (5) Creatinine elevation Status: Resolved Plan: Improved renal function with most recent creatinine of 1.3 Per chart review normal creatinine in April 2016 at 1.15. Normal saline at 75 mL per hour Encourage PO fluids with regular diet Continue monitor (6) Nutrition, metabolism, and development symptoms Status: Acute Plan: Fluids: NS at 75 ml/hr Diet: Heart healthy as tolerated Electrolytes: Unremarkable, continue to monitor. GI: Omeprazole daily DVT: FIGUEROA/SCDs, anticoagulation held due to procedure with continued hematuria Chronic conditions: * HLD: Continue atorvastatin 20 mg daily * HTN: Continue nifedipine 90 mg twice a day and Metoprolol 50mg twice a day (Dex Burgos MD R1) Problem Qualifiers (1) Bladder cancer: Qualified Code: C67.9 - Malignant neoplasm of urinary bladder, unspecified site (2) Atrial fibrillation: Qualified Code: I48.91 - Atrial fibrillation, unspecified type (3) Constipation: Qualified Code: K59.03 - Drug-induced constipation Dex Burgos MD R1 Nov 04, 2016 10:33 Yamilet Amador MD Nov 11, 2016 15:08
[2016-11-04] MEDS: MORPHINE SULFATE 4 MG/ML INJ IV PRN (13:13)
[2016-11-04] MEDS ORDERED: MORPHINE SULFATE 4 MG/ML INJ IV PUSH ONE (13:15)
--- NOTE | 2016-11-04 13:17 | HHI.PR ---
Subjective Remarks Continues complain of back pain and nausea Status post needle biopsies of right renal mass yesterday Objective Vital Signs Vital Signs Date Time Temp Pulse Resp B/P Pulse Ox O2 Delivery O2 Flow Rate FiO2 11/04/16 09:29 96 21 11/04/16 08:47 96.8 90 16 124/82 97 11/04/16 04:16 98.8 90 18 126/66 97 11/04/16 00:00 98.1 95 18 122/74 97 11/03/16 20:20 98.0 73 16 102/64 96 11/03/16 17:10 96 Nasal Cannula 2.00 11/03/16 17:00 71 16 123/68 96 11/03/16 16:30 70 16 127/75 96 11/03/16 16:00 72 16 121/73 96 11/03/16 15:30 72 16 118/76 96 11/03/16 15:15 98.4 73 16 114/78 96 I/O 11/03/16 11/03/16 11/03/16 11/04/16 11/04/16 11/04/16 07:00 15:00 23:00 07:00 15:00 23:00 Intake Total 500 ml 0 ml Output Total 2150 ml 1300 ml 1000 ml Balance -1650 ml -1300 ml -1000 ml Intake Oral 500 ml 0 ml Output Urine Total 2150 ml 1300 ml 1000 ml # Bowel Movements 0 Result Diagram: 11/04/16 0611 11/04/16 0611 Objective Remarks Physical exam essentially unchanged Assessment and Plan Assessment and Plan Urologic impression: #1 superficial recurrent bladder cancer status post recent transurethral resection with favorable pathology #2 onset of complex masslike changes to right kidney which may be related to chronic obstruction with infection however malignancy needs to be ruled out/ status post percutaneous needle biopsies yesterday #[address] suspicious for metastatic disease Recommendations: #1 continue with analgesic support #2 awaiting pathology results of right renal mass biopsy Alexys Duncan MD Nov 04, 2016 13:17
[2016-11-04] MEDS ORDERED: MORPHINE SULFATE 15 MG TAB PO PRN (13:30)
[2016-11-04] MEDS: ONDANSETRON HCL 4 MG/2 ML VIAL IV PUSH PRN ×2 (13:34→19:24)
--- NOTE | 2016-11-04 13:42 | PD.ONC.PN ---
Subjective Subjective Remarks Afebrile overnight. Patient states pain well controlled. After he took his MS contin last night he went six hours without needing a pain pill. No BM today. Objective Data Date Time Temp Pulse Resp B/P Pulse Ox O2 Delivery O2 Flow Rate FiO2 11/04/16 09:29 96 21 11/04/16 08:47 96.8 90 16 124/82 97 11/04/16 04:16 98.8 90 18 126/66 97 11/04/16 00:00 98.1 95 18 122/74 97 11/03/16 20:20 98.0 73 16 102/64 96 11/03/16 17:10 96 Nasal Cannula 2.00 11/03/16 17:00 71 16 123/68 96 11/03/16 16:30 70 16 127/75 96 11/03/16 16:00 72 16 121/73 96 11/03/16 15:30 72 16 118/76 96 11/03/16 15:15 98.4 73 16 114/78 96 Result Diagram: 11/04/16 0611 11/04/1611 Laboratory Results Laboratory Tests Test 11/03/16 11/03/16 11/04/16 11/04/16 15:30 17:20 02:00 06:11 White Blood Count 6.9 TH/MM3 6.0 TH/MM3 4.9 TH/MM3 Red Blood Count 4.27 MIL/MM3 4.06 MIL/MM3 4.08 MIL/MM3 Hemoglobin 13.1 GM/DL 12.4 GM/DL 12.7 GM/DL Hematocrit 38.5 % 36.6 % 36.5 % Mean Corpuscular Volume 90.0 FL 90.1 FL 89.5 FL Mean Corpuscular Hemoglobin 30.7 PG 30.6 PG 31.1 PG Mean Corpuscular Hemoglobin 34.2 % 34.0 % 34.8 % Concent Red Cell Distribution Width 13.7 % 13.8 % 13.5 % Platelet Count 219 TH/MM3 213 TH/MM3 171 TH/MM3 Mean Platelet Volume 7.2 FL 7.4 FL 7.4 FL Neutrophils (%) (Auto) 61.3 % 73.9 % 72.5 % Lymphocytes (%) (Auto) 25.2 % 13.6 % 14.7 % Monocytes (%) (Auto) 10.5 % 9.8 % 10.0 % Eosinophils (%) (Auto) 2.7 % 2.4 % 2.6 % Basophils (%) (Auto) 0.3 % 0.3 % 0.2 % Neutrophils # (Auto) 4.2 TH/MM3 4.5 TH/MM3 3.5 TH/MM3 Lymphocytes # (Auto) 1.7 TH/MM3 0.8 TH/MM3 0.7 TH/MM3 Monocytes # (Auto) 0.7 TH/MM3 0.6 TH/MM3 0.5 TH/MM3 Eosinophils # (Auto) 0.2 TH/MM3 0.1 TH/MM3 0.1 TH/MM3 Basophils # (Auto) 0.0 TH/MM3 0.0 TH/MM3 0.0 TH/MM3 CBC Comment DIFF FINAL DIFF FINAL DIFF FINAL Differential Comment Urine Color YELLOW Urine Turbidity HAZY Urine pH 5.5 Urine Specific [place] 1.010 Urine Protein 30 mg/dL Urine Glucose (UA) NEG mg/dL Urine Ketones NEG mg/dL Urine Occult Blood LARGE Urine Nitrite NEG Urine Bilirubin NEG Urine Urobilinogen LESS THAN 2.0 MG/DL Urine Leukocyte Esterase LARGE Urine RBC 24 /hpf Urine WBC /hpf Urine WBC Clumps FEW Urine Mucus FEW /lpf Microscopic Urinalysis Comment CULTURE INDICATED Sodium Level 140 MEQ/L Potassium Level 3.4 MEQ/L Chloride Level 103 MEQ/L Carbon Dioxide Level 29.4 MEQ/L Anion Gap 8 MEQ/L Blood Urea Nitrogen 14 MG/DL Creatinine 1.20 MG/DL Estimat Glomerular Filtration 60 ML/MIN Rate Random Glucose 116 MG/DL Calcium Level 8.0 MG/DL Culture Results Microbiology Date/Time Procedure Status Source Growth 11/04/16 02:00 Urine Culture Received Urine Clean Catch Pending Administered Medications Medications (Trade) Dose Ordered Sig/Blair Route PRN Reason Start Time Stop Time Status Last Admin Dose Admin Atorvastatin Calcium (Lipitor) 20 mg HS PO 11/01/16 21:00 11/03/16 21:21 Metoprolol Tartrate (Lopressor) 50 mg BID PO 11/01/16 21:00 11/03/16 21:20 Nifedipine (Procardia Xl) 90 mg BID PO 11/01/16 21:00 11/04/16 07:59 Pantoprazole Sodium (Protonix) 40 mg DAILY PO 11/02/16 09:00 11/04/16 07:59 IV Flush (NS Flush) 2 ml BID FLUSH 2/27/17 12:00 11/04/16 07:59 Morphine Sulfate (Morphine Inj) 4 mg Q3H PRN IV PAIN SCALE 1 TO 4 11/01/16 12:00 11/04/16 13:13 Morphine Sulfate (Morphine Inj) 6 mg Q3HR PRN IV PUSH PAIN SCALE 5 TO 10 11/02/16 16:00 11/04/16 10:59 Bisacodyl (Dulcolax Supp) 10 mg HS RI 11/02/16 21:00 11/03/16 21:21 Magnesium Hydroxide (Milk Of Haroon Lilarisa) 30 ml Q12H PO 11/03/16 09:00 11/04/16 08:01 Morphine Sulfate (Oramorph Sr) 60 mg Q12HR PO 11/03/16 09:00 11/04/16 09:28 Polyethylene Glycol (Miralax) 17 gm DAILY PO 11/03/16 10:30 11/04/16 08:06 Objective Remarks GENERAL: Elderly male, sitting upright in bed in [facility]. SKIN: Warm and dry. HEAD: Normocephalic. EYES: No scleral icterus. No injection or drainage. NECK: Supple, trachea midline. CARDIOVASCULAR: Regular rate and rhythm RESPIRATORY: Breath sounds equal bilaterally. No accessory muscle use. GASTROINTESTINAL: Abdomen soft, non-tender, nondistended. MUSCULOSKELETAL: No cyanosis, or edema. NEURO: Awake and alert, normal speech, moving all extremities. Assessment/Plan Problem List: (1) Bladder cancer Status: Acute Plan: 11/04/16: awaiting pathology results. Pain controlled. discussion transitioning to oral breakthrough pain medications. discussed maintaining bowel regimen while on opiates. 11/02: CT C/A/P today and bone scan today. after bone scan will determine which area is best to biopsy History: --had Noninvasive low grade urinary bladder cancer diagnosed in April 2016. --recently had cystoscopy showed multiple new bladder tumors. --s/p transurethral resection of the bladder tumor and the pathology report came back as low grade noninvasive papillary urothelial carcinoma. --MRI lumbar spine showed abnormal signal and marrow infiltrative lesion at L2 to the right of the midline with enhancement extending into the right pedicle and the right transverse process with surrounding soft tissue enhancement extending into the right neural foramina and epidural space. + second rim enhancing lesion measuring 1.5 cm in the right qamar-sacrum noted. Additional ill-defined enhancement is noted in the left qamar-sacrum which is into SI joint (2) Pain Status: Acute Plan: 11/04: continu Oramorph to 60mg PO BID. start MS IR 15mg PO q3 hours for breakthrough. continue IV morphine for severe pain only. 11/02: will start MS contin, continue morphine scheduled while awake and for PRN. --Right-sided back pain radiating to the right hip, probably related to the lumbar lesion or kidney. (3) Atrial fibrillation Status: Chronic Plan: --follows with Dr. Young --takes Pradaxa 150mg PO BID at home has been on hold since 10/21. Assessment 71y/o male with urinary bladder cancer h/o Hypertension. Hypercholesterolemia. Squamous cell carcinoma of the skin and melanoma. Urinary bladder cancer diagnosed in April 2016 and recently with recurrent disease. History of kidney stones. gastroesophageal reflux disease. Atrial fibrillation. Attending Statement pain is well under control c/o constipation ( Due to narcs) path is pending. D/W Pathologist. Will be ready later today or tomorrow. D/W DR Mcdonough. He will start XRT to lumbar spine once path is finalized. Anticipate d/c tomorrow. . Problem Qualifiers (1) Bladder cancer: Qualified Code: C67.9 - Malignant neoplasm of urinary bladder, unspecified site (2) Atrial fibrillation: Qualified Code: I48.91 - Atrial fibrillation, unspecified type Coleen Smith Nov 04, 2016 13:42 Obi Warner MD Nov 04, 2016 23:26
[2016-11-04] MEDS: ATORVASTATIN 20 MG TAB PO SCH (20:17)
[2016-11-04] MEDS: BISACODYL 10 MG SUPP PR SCH (20:18)
[2016-11-05] VITALS (10 sets, daily range): BP systolic 101–122; BP diastolic 61–81; PULSE 71–104; RESP 16–18; TEMP 95.5–98.7; O2SAT 93–98
--- NOTE | 2016-11-05 08:12 | HHI.FPPN ---
Subjective Remarks Patient seen and examined this morning. No acute events overnight with VSS. Patient continues to be nauseous and constipated. He did have 2 small, liquid BMs yesterday, but still feels bloated and constipated overall. He was nauseous overnight night as well receiving Zofran and Phenergan which he says helped. He is very anxious to received his biopsy results, however I explained to him this could take some time. We discussed his pain control, and I encouraged him to try to use the oral medications exclusively as he will not be able to receive IV pain medication once he is discharged. Otherwise he has no complaints and denies any fevers, SOB, chest pain, NVD, or calf tenderness. (Dex Burgos MD R1) Objective Vitals Vital Signs Date Time Temp Pulse Resp B/P Pulse Ox O2 Delivery O2 Flow Rate FiO2 11/05/16 05:32 20 11/05/16 04:00 97.4 87 18 109/61 93 11/05/16 01:00 92 11/05/16 00:00 98.7 104 17 122/81 95 11/04/16 23:52 19 11/04/16 22:59 20 11/04/16 20:00 96.3 104 18 129/75 94 11/04/16 16:00 96.4 95 16 137/82 94 11/04/16 12:00 97.3 90 16 135/89 96 11/04/16 09:29 96 21 11/04/16 08:47 96.8 90 16 124/82 97 I/O 11/04/16 11/04/16 11/04/16 11/05/16 11/05/16 11/05/16 07:00 15:00 23:00 07:00 15:00 23:00 Intake Total 480 ml 1007 ml 515 ml Output Total 1050 ml 575 ml Balance -570 ml 432 ml 515 ml Intake Oral 480 ml IV Total 1007 ml 515 ml Output Urine Total 1050 ml 575 ml (Dex Burgos MD R1) Result Diagram: 11/04/16 0611 11/04/16 0611 Objective Remarks GEN: Well-developed, well-nourished patient. No acute distress. Lying comfortably in bed with at bedside. CV: Regular rate and rhythm without obvious MGR. LUNGS: Clear to auscultation bilaterally. Normal respiratory effort. No wheezes , rales, rhonchi. GI: Soft, mildly distended with +BS. No palpable masses. EXT: No edema. No calf tenderness. NEURO/PSYCH: Awake, alert. Appropriate insight and judgment. Normal speech ( Dex Burgos MD R1) A/P Assessment and Plan Mr. 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 Discharge Planning Timeline unknown. Pending oncology recommendations WDW: Dr. Amador DW: Dr. Sim (Dex Burgos MD R1) Attending Attestation Patient seen and examined. Case reviewed and discussed with the resident team. Agree with plan of care as discussed with me and documented in the resident note. (Yamilet Amador MD) Problem List: (1) Metastatic disease Status: Acute Plan: Patient with history of urinary bladder carcinoma s/p multiple tumor resections presenting with progressing lower back pain. Suspected to be due to metastasis as evidenced by imaging. Oncology consulted: Appreciate recommendations * CT-guided renal biopsy 11/03: Pathology pending * Increased Oramorph to 60mg Q8H wiht 30mg PO Q3H for breakthrough pain Urology: appreciate recommendations * Agree with biopsy (bone or renal) * Onset of complex masslike changes to right kidney may be related to chronic obstruction with infection however malignancy needs to be ruled out Radiation Oncology: Appreciate recommendations Imaging: * Chest CT: Bilateral pulmonary nodules characteristic of metastatic disease. Right renal mass. No evidence of mediastinal or hilar lymphadenopathy. No evidence of destructive bone lesions. * CT abdomen: Complex masslike enlargement of the upper and mid poles of the right kidney with associated lymphadenopathy. Chronic right hydronephrosis. New right basilar lung nodule characteristic of metastatic disease. Medications: * Oramorph 60mg Q8H * Morphine 30mg PO Q3H for breakthrough pain 1-8 * Morphine 6mg IV Q6H for extreme pain 9-10 Relevant Imaging from outside facility MRI Impression from [facility] 1. Enhancing interosseous lesion at L2 extending into the right lateral mass; posterior elements and transverse process with surrounding necrotic soft tissue and neuro foramina involvement, impinging on the L2 nerve root, suggestive of metastatic disease until proven otherwise, less likely inflammatory. Secondary enhancing lesion in the sacrum slightly eccentric to the right measures 1.5 cm and a third ill-defined enhancement of the left sacrum adjacent to the sacroiliac joint. Bone scan and screening for occult carcinoma suggested. 2. Disc disease with grade 1 anterolisthesis L4-L5. Combination of disc herniation and facet hypertrophy is present narrowing the neural for him in a impinging on the L5 nerve roots. There is an underlying pars defect. 3. Herniation L5-S1 eccentric to the left. There is left lateral recess narrowing impinging the descending S1 nerve root. There is bilateral foraminal narrowing abutting the L5 nerve root (2) Bladder cancer Status: Chronic Plan: April of 2016 he was diagnosed with bladder carcinoma. Surgical resection by Dr. Duncan, urology, with the pathology report of low grade in April 2016. He did not require any radiation or chemotherapy treatments. Follow up cystoscopy showed multiple new tumors which were surgically removed by Dr. Duncan last week, 10/25/16, with pathology currently pending. -UA on admission showed elevated leukocytosis and moderate blood which may have been due to recent removal of [place]. Was treated empirically with Rocephin 2. Discontinue 11/03 as urine culture was negative 48 hours -Repeat UA on 11/04 showed continued leukocytosis and moderate blood with leukocyte esterase. Continue to monitor. See plan above (3) Atrial fibrillation Status: Chronic Plan: Patient with history of atrial fibrillation seen by Dr. Young. Continue metoprolol 50 mg twice a day Pradaxa 150mg BID for anticoagulation restarted s/p procedure as his urine is clear Monitor urine for continued hematuria (4) Constipation Status: Resolved Plan: Patient complaining of constipation likely due to his pain medication at home. Last bowel movement consisting of liquid diarrhea on 10/29 prior to admission. -Patient endorses 2 soft, liquid based BM on 11/04 -Continue MiraLAX -Continue milk of magnesia and Dulcolax -Continue fluids to help with constipation (5) Creatinine elevation Status: Resolved Plan: Improved renal function with most recent creatinine of 1.3 Per chart review normal creatinine in April 2016 at 1.15. Normal saline at 75 mL per hour Encourage PO fluids with regular diet Continue monitor (6) Nutrition, metabolism, and development symptoms Status: Acute Plan: Fluids: NS at 75 ml/hr Diet: Heart healthy as tolerated Electrolytes: Unremarkable, continue to monitor. GI: Omeprazole daily DVT: FIGUEROA/SCDs, Pradaxa 150mg BID Chronic conditions: * HLD: Continue atorvastatin 20 mg daily * HTN: Continue nifedipine 90 mg twice a day and Metoprolol 50mg twice a day (Dex Burgos MD R1) Problem Qualifiers (1) Bladder cancer: Qualified Code: C67.9 - Malignant neoplasm of urinary bladder, unspecified site (2) Atrial fibrillation: Qualified Code: I48.91 - Atrial fibrillation, unspecified type (3) Constipation: Qualified Code: K59.03 - Drug-induced constipation Dex Burgos MD R1 Nov 05, 2016 08:12 Yamilet Amador MD Nov 11, 2016 15:09
[2016-11-05] MEDS: MORPHINE SULFATE 15 MG TAB PO PRN ×4 (10:32→21:17)
[2016-11-05] MEDS: ONDANSETRON HCL 4 MG/2 ML VIAL IV PUSH PRN ×2 (10:32→21:15)
[2016-11-05] MEDS: PANTOPRAZOLE SOD 40 MG DELAYED RELEASE TAB PO SCH (10:32)
[2016-11-05] MEDS: NIFEdipine 90 MG SUSTAINED RELEASE TAB PO SCH ×2 (10:33→21:18)
[2016-11-05] MEDS: METOPROLOL TARTRATE 50 MG TAB PO SCH ×2 (10:33→21:17)
[2016-11-05] MEDS: SODIUM CHLORIDE 0.9% FLUSH 5 ML FLUSH FLUSH SCH ×2 (10:41→21:21)
--- NOTE | 2016-11-05 11:31 | PD.ONC.PN ---
Subjective Subjective Remarks Afebrile overnight. Pt resting in bed with at bedside. He states he is depressed after hearing about path results. He reports that he has not had a BM in 6 days. Objective Data Date Time Temp Pulse Resp B/P Pulse Ox O2 Delivery O2 Flow Rate FiO2 11/05/16 08:00 96.9 72 16 101/63 93 11/05/16 05:32 20 11/05/16 04:00 97.4 87 18 109/61 93 11/05/16 01:00 92 11/05/16 00:00 98.7 104 17 122/81 95 11/04/16 23:52 19 11/04/16 22:59 20 11/04/16 20:00 96.3 104 18 129/75 94 11/04/16 16:00 96.4 95 16 137/82 94 11/04/16 12:00 97.3 90 16 135/89 96 Result Diagram: 11/04/16 0611 11/04/16 0611 Culture Results Microbiology Date/Time Procedure Status Source Growth 11/04/16 02:00 Urine Culture Received Urine Clean Catch Pending Administered Medications Medications (Trade) Dose Ordered Sig/Blair Route PRN Reason Start Time Stop Time Status Last Admin Dose Admin Atorvastatin Calcium (Lipitor) 20 mg HS PO 11/01/16 21:00 11/04/16 20:17 Metoprolol Tartrate (Lopressor) 50 mg BID PO 11/01/16 21:00 11/05/16 10:33 Nifedipine (Procardia Xl) 90 mg BID PO 11/01/16 21:00 11/05/16 10:33 Pantoprazole Sodium (Protonix) 40 mg DAILY PO 11/02/16 09:00 11/05/16 10:32 IV Flush (NS Flush) 2 ml BID FLUSH 11/01/16 12:00 11/04/16 20:21 Bisacodyl (Dulcolax Supp) 10 mg HS IA 11/02/16 21:00 11/04/16 20:18 Magnesium Hydroxide (Milk Of Magnesia Liq) 30 ml Q12H PO 11/03/16 09:00 11/04/16 20:18 Polyethylene Glycol (Miralax) 17 gm DAILY PO 11/03/16 10:30 11/04/16 08:06 Ondansetron HCl (Zofran Inj) 4 mg Q6HR PRN IV PUSH NAUSEA 11/04/16 13:30 11/05/16 10:32 Morphine Sulfate (Morphine Inj) 6 mg Q6H PRN IV PUSH PAIN SCALE 9 TO 10 11/04/16 13:30 11/04/16 23:39 Morphine Sulfate (Msir) 30 mg Q3H PRN PO PAIN 1-8 11/05/16 10:30 11/05/16 10:32 Objective Remarks GENERAL: Older male, lying in bed in no distress. SKIN: Warm and dry. HEAD: Normocephalic. EYES: No injection or drainage. NECK: Supple, trachea midline. CARDIOVASCULAR: +S1/S2. RESPIRATORY: Lungs clear anteriorly. Breathing unlabored. GASTROINTESTINAL: Abdomen distended. +BS. Non tender. EXTREMITIES: No edema. NEUROLOGICAL: No obvious focal deficit. Awake, alert, and oriented x3. Assessment/Plan Problem List: (1) Bladder cancer Status: Acute Plan: 11/05/16: Path results show transitional cell carcinoma. Pt will need to followup after discharge for chemo, radiation. 11/04/16: awaiting pathology results. Pain controlled. discussion transitioning to oral breakthrough pain medications. discussed maintaining bowel regimen while on opiates. 11/02: CT C/A/P today and bone scan today. after bone scan will determine which area is best to biopsy History: --had Noninvasive low grade urinary bladder cancer diagnosed in April 2016. --recently had cystoscopy showed multiple new bladder tumors. --s/p transurethral resection of the bladder tumor and the pathology report came back as low grade noninvasive papillary urothelial carcinoma. --MRI lumbar spine showed abnormal signal and marrow infiltrative lesion at L2 to the right of the midline with enhancement extending into the right pedicle and the right transverse process with surrounding soft tissue enhancement extending into the right neural foramina and epidural space. + second rim enhancing lesion measuring 1.5 cm in the right qamar-sacrum noted. Additional ill-defined enhancement is noted in the left qamar-sacrum which is into SI joint (2) Pain Status: Acute Plan: 11/05/16: His pain medication has been increased to 60 MS Contin Q8, and 30 MSIR Q3h. We will give him lactulose x 3 doses to induce a BM. 11/04: continu Oramorph to 60mg PO BID. start MS IR 15mg PO q3 hours for breakthrough. continue IV morphine for severe pain only. 11/02: will start MS contin, continue morphine scheduled while awake and for PRN. --Right-sided back pain radiating to the right hip, probably related to the lumbar lesion or kidney. (3) Atrial fibrillation Status: Chronic Plan: --follows with Dr. Young --Resume Pradaxa since no other invasive procedures planned. Assessment 71y/o male with urinary bladder cancer h/o Hypertension. Hypercholesterolemia. Squamous cell carcinoma of the skin and melanoma. Urinary bladder cancer diagnosed in April 2016 and recently with recurrent disease. History of kidney stones. gastroesophageal reflux disease. Atrial fibrillation. Attending Statement c/o constipation. still has severe pain when morhine action wears off in 4-6 hrs. Change morphine d/w him and the result of bx = TCC. Recommend chemo as outpt. will strat XRT to L spine soon. The exam, history, and the medical decision-making described in the above note were completed with the assistance of the mid-level provider. I reviewed and agree with the findings presented. I attest that I had a [id number] encounter with the patient on the same day, and personally performed and documented my assessment and findings in the medical record. Problem Qualifiers (1) Bladder cancer: Qualified Code: C67.9 - Malignant neoplasm of urinary bladder, unspecified site (2) Atrial fibrillation: Qualified Code: I48.91 - Atrial fibrillation, unspecified type Nan Rivas Nov 05, 2016 11:31 Obi Warner MD Nov 05, 2016 17:09
[2016-11-05] MEDS: LACTULOSE SYRUP 20 GM/30 ML CUP PO SCH ×2 (12:45→18:08)
[2016-11-05] MEDS: POLYETHYLENE GLYCOL 17 GM PKG PO SCH (12:45)
[2016-11-05] MEDS: MAGNESIUM HYDROXIDE SUSP 30 ML CUP PO SCH ×2 (12:46→21:15)
[2016-11-05] MEDS: MORPHINE SULFATE 60 MG CONTROLLED RELEASE TAB PO SCH ×2 (12:50→21:18)
--- NOTE | 2016-11-05 16:04 | HHI.PR ---
Subjective Remarks Pain well managed Complains of some mild penile swelling and ongoing constipation Voiding without difficulty Denies hematuria Objective Vital Signs Vital Signs Date Time Temp Pulse Resp B/P Pulse Ox O2 Delivery O2 Flow Rate FiO2 11/05/16 15:08 16 11/05/16 12:55 16 11/05/16 12:45 95.5 85 16 116/69 94 11/05/16 11:28 98 Nasal Cannula 2.00 11/05/16 08:00 96.9 72 16 101/63 93 11/05/16 05:32 20 11/05/16 04:00 97.4 87 18 109/61 93 11/05/16 01:00 92 11/05/16 00:00 98.7 104 17 122/81 95 11/04/16 23:52 19 11/04/16 22:59 20 11/04/16 20:00 96.3 104 18 129/75 94 I/O 11/04/16 11/04/16 11/04/16 11/05/16 11/05/16 11/05/16 07:00 15:00 23:00 07:00 15:00 23:00 Intake Total 480 ml 1007 ml 515 ml 460 ml Output Total 1050 ml 575 ml 300 ml 220 ml Balance -570 ml 432 ml 515 ml 160 ml -220 ml Intake Oral 480 ml 460 ml IV Total 1007 ml 515 ml Output Urine Total 1050 ml 575 ml 300 ml 220 ml Result Diagram: 11/04/16 0611 11/04/16 0611 Other Results Needle biopsy of right renal mass consistent with invasive urothelial carcinoma Objective Remarks Abdomen soft, nontender Bladder not distended Mild edema to the penis Mild pitting edema to bilateral lower extremities Assessment and Plan Assessment and Plan Urologic impression: Metastatic urothelial carcinoma Recommendations: #1 continue with analgesic support #2 further management as per oncology #3 no indication for a right nephrectomy at the present time Alexys Duncan MD Nov 05, 2016 16:04
[2016-11-05] MEDS: DABIGATRAN ETEXILATE 150 MG CAP PO SCH (21:15)
[2016-11-05] MEDS: ATORVASTATIN 20 MG TAB PO SCH (21:17)
[2016-11-05] MEDS: BISACODYL 10 MG SUPP PR SCH (21:18)
[2016-11-05] MEDS: PROMETHAZINE HCL 25 MG TAB PO PRN (23:36)
[2016-11-06] VITALS (14 sets, daily range): BP systolic 104–130; BP diastolic 63–79; PULSE 78–124; RESP 16–24; TEMP 96.9–98.7; O2SAT 87–99
[2016-11-06] MEDS: LACTULOSE SYRUP 20 GM/30 ML CUP PO SCH (02:36)
[2016-11-06] MEDS: ONDANSETRON HCL 4 MG/2 ML VIAL IV PUSH PRN (04:08)
[2016-11-06] MEDS: MORPHINE SULFATE 60 MG CONTROLLED RELEASE TAB PO SCH ×2 (06:00→14:00)
[2016-11-06] MEDS: PROMETHAZINE HCL 25 MG TAB PO PRN (06:02)
[2016-11-06 07:41] LABS: BICARBONATE 27.1 MEQ/L (21.0-32.0); POTASSIUM 4.2 MEQ/L (3.5-5.1)
[2016-11-06] MEDS: POLYETHYLENE GLYCOL 17 GM PKG PO SCH (08:27)
[2016-11-06] MEDS: NIFEdipine 90 MG SUSTAINED RELEASE TAB PO SCH ×2 (08:27→21:00)
[2016-11-06] MEDS: MAGNESIUM HYDROXIDE SUSP 30 ML CUP PO SCH ×2 (08:27→21:00)
[2016-11-06] MEDS: METOPROLOL TARTRATE 50 MG TAB PO SCH ×2 (08:28→21:00)
[2016-11-06] MEDS: DABIGATRAN ETEXILATE 150 MG CAP PO SCH (08:28)
[2016-11-06] MEDS: SODIUM CHLORIDE 0.9% FLUSH 5 ML FLUSH FLUSH SCH ×2 (08:29→20:00)
[2016-11-06] MEDS: PANTOPRAZOLE SOD 40 MG DELAYED RELEASE TAB PO SCH (08:29)
--- NOTE | 2016-11-06 09:35 | PD.ONC.PN ---
Subjective Subjective Remarks Afebrile overnight. at bedside. Pt very lethargic today. He is mumbling when asked questions. Per spouse who is an RN, he has not had anything for pain since last night. He had a small BM this morning. Objective Data Date Time Temp Pulse Resp B/P Pulse Ox O2 Delivery O2 Flow Rate FiO2 11/06/16 08:25 97.9 91 16 118/72 90 11/06/16 04:16 96.9 78 17 108/69 94 11/06/16 02:44 95 11/06/16 00:19 20 11/06/16 00:16 97.0 82 17 118/70 99 11/05/16 23:00 18 11/05/16 20:16 97.5 81 17 101/69 96 11/05/16 19:52 93 Nasal Cannula 2.00 11/05/16 16:00 96.5 71 16 106/63 93 11/05/16 13:18 79 11/05/16 12:45 95.5 85 16 116/69 94 11/05/16 11:28 98 Nasal Cannula 2.00 Result Diagram: 11/04/16 0611 11/06/16 0646 Laboratory Results Laboratory Tests Test 11/06/16 06:46 Sodium Level 133 MEQ/L Potassium Level 4.2 MEQ/L Chloride Level 97 MEQ/L Carbon Dioxide Level 27.1 MEQ/L Anion Gap 9 MEQ/L Blood Urea Nitrogen 17 MG/DL Creatinine 1.37 MG/DL Estimat Glomerular Filtration 51 ML/MIN Rate Random Glucose 120 MG/DL Calcium Level 8.5 MG/DL Culture Results Microbiology Date/Time Procedure Status Source Growth 11/04/16 02:00 Urine Culture - Preliminary Resulted Urine Clean Catch <10,000 CFU/ML GRAM POSITIVE RANI Administered Medications Medications (Trade) Dose Ordered Sig/Blair Route PRN Reason Start Time Stop Time Status Last Admin Dose Admin Atorvastatin Calcium (Lipitor) 20 mg HS PO 11/01/16 21:00 11/05/16 21:17 Metoprolol Tartrate (Lopressor) 50 mg BID PO 11/01/16 21:00 11/06/16 08:28 Nifedipine (Procardia Xl) 90 mg BID PO 11/01/16 21:00 11/06/16 08:27 Pantoprazole Sodium (Protonix) 40 mg DAILY PO 11/02/16 09:00 11/06/16 08:29 IV Flush (NS Flush) 2 ml BID FLUSH 11/01/16 12:00 11/06/16 08:29 Bisacodyl (Dulcolax Supp) 10 mg HS ND 11/02/16 21:00 11/05/16 21:18 Magnesium Hydroxide (Milk Of Haroon Roger) 30 ml Q12H PO 11/03/16 09:00 11/06/16 08:27 Polyethylene Glycol (Miralax) 17 gm DAILY PO 11/03/16 10:30 11/06/16 08:27 Ondansetron HCl (Zofran Inj) 4 mg Q6HR PRN IV PUSH NAUSEA 11/04/16 13:30 11/06/16 04:08 Morphine Sulfate (Morphine Inj) 6 mg Q6H PRN IV PUSH PAIN SCALE 9 TO 10 11/04/16 13:30 11/04/16 23:39 Promethazine HCl (Phenergan) 25 mg Q6H PRN PO NAUSEA OR VOMITING 11/05/16 00:00 11/06/16 06:02 Morphine Sulfate (Msir) 30 mg Q3H PRN PO PAIN 1-8 11/05/16 10:30 11/05/16 21:17 Morphine Sulfate (Oramorph Sr) 60 mg Q8HR PO 11/05/16 14:00 11/05/16 21:18 Dabigatran (Pradaxa) 150 mg BID PO 11/05/16 21:00 11/06/16 08:28 Objective Remarks GENERAL: Older male lying in bed. He is lethargic. SKIN: Warm and dry. HEAD: Normocephalic. EYES: No injection or drainage. NECK: Supple, trachea midline. CARDIOVASCULAR: +S1/S2. RESPIRATORY: Lungs clear anteriorly. Breathing unlabored. GASTROINTESTINAL: Abdomen distended. +BS. EXTREMITIES: Trace pedal edema. NEUROLOGICAL: Lethargic. 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 No facial droop. Assessment/Plan Problem List: (1) Bladder cancer Status: Acute Plan: 11/06/16: stat CT scan of the brain. Pt lethargic, mumbling. This is a change from yesterday as he was alert and engaged in conversation. 11/05/16: Path results show transitional cell carcinoma. Pt will need to followup after discharge for chemo, radiation. 11/04/16: awaiting pathology results. Pain controlled. discussion transitioning to oral breakthrough pain medications. discussed maintaining bowel regimen while on opiates. 11/02: CT C/A/P today and bone scan today. after bone scan will determine which area is best to biopsy History: --had Noninvasive low grade urinary bladder cancer diagnosed in April 2016. --recently had cystoscopy showed multiple new bladder tumors. --s/p transurethral resection of the bladder tumor and the pathology report came back as low grade noninvasive papillary urothelial carcinoma. --MRI lumbar spine showed abnormal signal and marrow infiltrative lesion at L2 to the right of the midline with enhancement extending into the right pedicle and the right transverse process with surrounding soft tissue enhancement extending into the right neural foramina and epidural space. + second rim enhancing lesion measuring 1.5 cm in the right qamar-sacrum noted. Additional ill-defined enhancement is noted in the left qamar-sacrum which is into SI joint (2) Pain Status: Acute Plan: 11/05/16: His pain medication has been increased to 60 MS Contin Q8, and 30 MSIR Q3h. We will give him lactulose x 3 doses to induce a BM. 11/04: continu Oramorph to 60mg PO BID. start MS IR 15mg PO q3 hours for breakthrough. continue IV morphine for severe pain only. 11/02: will start MS contin, continue morphine scheduled while awake and for PRN. --Right-sided back pain radiating to the right hip, probably related to the lumbar lesion or kidney. (3) Atrial fibrillation Status: Chronic Plan: --follows with Dr. Young --Resume Pradaxa since no other invasive procedures planned. Assessment 71y/o male with urinary bladder cancer h/o Hypertension. Hypercholesterolemia. Squamous cell carcinoma of the skin and melanoma. Urinary bladder cancer diagnosed in April 2016 and recently with recurrent disease. History of kidney stones. gastroesophageal reflux disease. Atrial fibrillation. Plan 1. stat CT scan of the brain for lethargy, AMS. No morphine since 9pm last night. Nursing checked vitals, he was noted to be hypoxic on RA at 88%. Halicat was called. 2. He will need chemo and radiation to lumbar spine as an outpatient once acute issues are resolved. Attending Statement The exam, history, and the medical decision-making described in the above note were completed with the assistance of the mid-level provider. I reviewed and agree with the findings presented. I attest that I had a [id number] encounter with the patient on the same day, and personally performed and documented my assessment and findings in the medical record. Patient seen and examined, labs, imaging studies as well as medications reviewed. Per the patient's he has been confused since last night. I tried to speak to the patient and he attempts to speak however he is difficult to understand. Metastatic urothelial cell carcinoma with extensive bony metastases. The bony lesions are symptomatic. He appears to be encephalopathic at this time, CT head reveals no acute intracranial abnormalities. I suspect the encephalopathy may be metabolic or related to drug interactions. I would advise limiting his pain medications, anxiolytics, sedatives or other psychotropic medications. Problem Qualifiers (1) Bladder cancer: Qualified Code: C67.9 - Malignant neoplasm of urinary bladder, unspecified site (2) Atrial fibrillation: Qualified Code: I48.91 - Atrial fibrillation, unspecified type Nan Rivas Nov 06, 2016 09:35 Sunil Arias MD Nov 06, 2016 14:50
[2016-11-06 10:22] LABS: BLOOD GAS CARBOXYHEMOGLOBIN 1.6 % (0-4); BLOOD GAS HCO3 24 mmol/L (22-26); BLOOD GAS METHEMOGLOBIN 1.2 % (0-2); BLOOD GAS O2 HGB SATURATION 94 % (90-100); BLOOD GAS OXYGEN CONTENT 16.8 Vol % (12.0-20.0); BLOOD GAS PCO2 50 mmHg (38-42); BLOOD GAS PO2 92 mmHg (61-120); BLOOD GAS TOTAL HGB 12.6 G/DL (12.0-16.0); TEMP CORR TO 98.6
[2016-11-06 10:23] LABS: CRITICAL VALUE NO; DRAW SITE LT RADIAL; LITER FLOW 6 L/M; NUMBER OF ARTERIAL PUNCTURES 1; OXYGEN DEVICE SIMPLE MSK; STAT YES; ULNAR PULSE PRESENT
[2016-11-06] MEDS ORDERED: SODIUM CHLOR 0.9% 1000 ML INJ 1,000 ML IV ONE (11:15)
[2016-11-06] MEDS ORDERED: IOHEXOL 350 MG/ML 10 ML VIAL (for RAD DIAG) IV ONE (11:18)
--- NOTE | 2016-11-06 11:25 | RADRPT ---
EXAM DATE/TIME: 11/06/2016 10:52 [facility] COMPARISON: No previous studies available for comparison. INDICATIONS : Altered mental status, slurred speech. RADIATION DOSE: 53.15 CTDIvol (mGy) MEDICAL HISTORY : Carcinoma, bladder. Hypertension. SURGICAL HISTORY : None. ENCOUNTER: Initial ACUITY: 1 day PAIN SCALE: Non-responsive LOCATION: cranial TECHNIQUE: Multiple contiguous axial images were obtained of the head. Using automated exposure control and adj ustment of the mA and/or kV according to patient size, radiation dose was kept as low as reasonably a chievable to obtain optimal diagnostic quality images. FINDINGS: CEREBRUM: The ventricles are normal for age. No evidence of midline shift, mass lesion, hemorrhage or acute in farction. No extra-axial fluid collections are seen. POSTERIOR FOSSA: The cerebellum and brainstem are intact. The 4th ventricle is midline. The cerebellopontine angle i s unremarkable. EXTRACRANIAL: The visualized portion of the orbits is intact. SKULL: The calvaria is intact. No evidence of skull fracture. CONCLUSION: No acute intracranial abnormality is identified. Sheldon Goodwin MD on November 06, 2016 at 11:22 Board Certified Radiologist. This report was verified electronically.
[2016-11-06] MEDS ORDERED: SODIUM CHLOR 0.9% 1000 ML INJ 1,000 ML IV SCH (11:30)
--- NOTE | 2016-11-06 11:30 | RADRPT ---
EXAM DATE/TIME: 11/06/2016 11:06 [facility] COMPARISON: No previous studies available for comparison. INDICATIONS : Hypoxia; evaluate for emboli. IV CONTRAST: 80 cc Omnipaque 350 (iohexol) IV ; Cumulative dose for multiple exams. RADIATION DOSE: 16.49 CTDIvol (mGy) MEDICAL HISTORY : Carcinoma, bladder. Gastroesophageal reflux disease. Renal calculi. SURGICAL HISTORY : Right total hip replacement, bladder tumor resections. ENCOUNTER: Initial ACUITY: 1 day PAIN SCALE: 0/10 LOCATION: chest TECHNIQUE: Volumetric scanning of the chest was performed using a pulmonary embolism protocol MIP images were re constructed. Using automated exposure control and adjustment of the mA and/or kV according to patien t size, radiation dose was kept as low as reasonably achievable to obtain optimal diagnostic quality images. FINDINGS: Examination quality is degraded by respiratory motion artifact and patient arm position. PULMONARY ARTERIES: No filling defects are seen in the pulmonary arteries through the segmental level. LUNGS: There is airspace consolidation in the left lower lobe and atelectasis in the right lower lobe. No pn eumothorax is present. PLEURAE: There are small bilateral pleural effusions, left larger than right. MEDIASTINUM: Heart and great vessels demonstrate no acute finding. No lymphadenopathy is visualized. MUSCULOSKELETAL: There are degenerative changes throughout the thoracic spine. MISCELLANEOUS: The esophagus is filled with fluid material and is dilated. There is a hiatal hernia. Please refer to abdomen and pelvis CT report for description of the subdiaphragmatic findings. CONCLUSION: 1. Examination quality is degraded by respiratory motion artifact. No PE is identified. 2. Airspace consolidation in the left lower lobe with small left pleural effusion. 3. Dilated and fluid-filled esophagus suggesting severe reflux. The patient is at high risk for aspir ation. Sheldon Goodwin MD on November 06, 2016 at 11:25 Board Certified Radiologist. This report was verified electronically.
--- NOTE | 2016-11-06 11:41 | RADRPT ---
EXAM DATE/TIME: 11/06/2016 11:06 [facility] COMPARISON: CT NEEDLE BIOPSY RENAL, RIGHT, November 03, 2016, 14:31. CT ABDOMEN & PELVIS W/O CONTRAST, November 01, 2016, 19:59. INDICATIONS : Constipation, abdominal distension, right flank pain. IV CONTRAST: 80 cc Omnipaque 350 (iohexol) IV ; Cumulative dose for multiple exams. ORAL CONTRAST: No oral contrast ingested. RADIATION DOSE: 28.51 CTDIvol (mGy) MEDICAL HISTORY : Carcinoma, bladder. Gastroesophageal reflux disease. Renal calculi. SURGICAL HISTORY : Bladder tumor resections, right total hip replacement. ENCOUNTER: Initial ACUITY: 1 week PAIN SCALE: 5/10 LOCATION: Right flank TECHNIQUE: Volumetric scanning of the abdomen and pelvis was performed. Using automated exposure control and ad justment of the mA and/or kV according to patient size, radiation dose was kept as low as reasonably achievable to obtain optimal diagnostic quality images. FINDINGS: There is artifact related to patient position. LOWER LUNGS: Please refer to chest CT report for description of the supradiaphragmatic findings. LIVER: Homogeneous density without lesion. There is no dilation of the biliary tree. No calcified gallston es. SPLEEN: Normal size without lesion. PANCREAS: Within normal limits. KIDNEYS: Right kidney remains abnormal with cortical thinning and delayed enhancement. There is also perinephr ic stranding. 4 mm calcification is present in the right upper pole collecting system. There is a mas slike structure in the renal pelvis measuring 3.2 x 2.3 cm. A stable enlarged a right aortocaval lymp h node remains present measuring 14 mm in short axis diameter. Left kidney contains a 2.7 cm low-dens ity lesion the lower pole. Density measurements are characteristic of a simple cyst. ADRENAL GLANDS: Within normal limits. VASCULAR: There is no aortic aneurysm. BOWEL/MESENTERY: There is a small hiatal hernia with dilated fluid-filled distal esophagus. Small bowel demonstrates n o abnormality. Colon is diffusely distended with air and fluid. No free air is visible. There is trac e free fluid in the right lower quadrant. ABDOMINAL WALL: Within normal limits. RETROPERITONEUM: There is no lymphadenopathy. BLADDER: Not well visualized do to artifact. There is questionable wall thickening along the lateral aspect bi laterally. No stones are seen. REPRODUCTIVE: Not adequately visualized due to artifact. INGUINAL: There is no lymphadenopathy or hernia. MUSCULOSKELETAL: Right hip hardware is present and causes severe beam hardening artifact. There are degenerative yates es of the spine. CONCLUSION: 1. Persistent abnormal right kidney with cortical thinning and abnormal delayed enhancement. There is also hydronephrosis that appears to because by a obstructing urothelial mass in the renal pelvis emilio suring 3.2 x 2.3 cm. This is highly suspicious for malignancy and there is perinephric stranding and an adjacent enlarged lymph node. 2. Urinary bladder is not well visualized do to beam hardening artifact. However, there is suspected wall thickening along the lateral aspects bilaterally. 3. Diffusely distended colon without signs of obstruction. Sheldon Godowin MD on November 06, 2016 at 11:31 Board Certified Radiologist. This report was verified electronically.
[2016-11-06 14:15] LABS: BACTERIA, URINE RARE /hpf; BLOOD, URINE MOD (NEG); GLUCOSE,URINE 1000 mg/dL (NEG); KETONE, URINE NEG (NEG); MUCUS URINE FEW /lpf (OCC); NITRITE,URINE NEG (NEG); PH, URINE 6.5 (5.0-8.5); RENAL EPITHELIAL CELLS <1 /hpf; SQUAMOUS EPITHELIAL CELL URINE 1 /hpf (0-5); URINE COLOR LIGHT-YELLOW (YELLW/STRAW)
[2016-11-06 14:16] LABS: COMMENT (UR) CULTURE INDICATED; CULTURE IF INDICATED CULTURE INDICATED
--- NOTE | 2016-11-06 15:15 | HHI.FPPN ---
Subjective Remarks Medical team notified at 1028 of Halicat due to AMS. Per nursing report patient woke up this morning with AMS and desaturations to the low 80s. A Halicat was then called. He was placed on a nonrebreather and responded appropriately with oxygen saturations in the upper 90s. She was found to be neurologically intact on exam without obvious signs of stroke. Head and ABD CT was ordered with Pulmonary CTA to r/o PE. All imaging was negative for obvious acute process. Medical team to evaluate patient. He remains altered and is able to answer questions intermittently. He is mumbling at baseline, with some minor word searching. His states that ever since he woke up this morning he seemed "a little off." He last received morphine last night 2116. He has had a bowel movement today and has been voiding regularly. His vital signs were stable until this morning with tachycardia to the 90s and the saturations to 80s. He is unable to participate in a complete review of systems at this time due to his mental status. Due to his worsening status, goals of care discussed with his . She states patient to remain full code, but refuses tracheostomy and PEG tube placement if necessary. (Dex Burgos MD R1) Objective Vitals Vital Signs Date Time Temp Pulse Resp B/P Pulse Ox O2 Delivery O2 Flow Rate FiO2 11/06/16 12:10 98.5 97 16 111/76 94 11/06/16 11:47 97 3.00 11/06/16 10:05 98 24 115/65 87 11/06/16 09:55 93 20 115/78 88 11/06/16 09:31 92 Nasal Cannula 2.00 11/06/16 08:25 97.9 91 16 118/72 90 11/06/16 04:16 96.9 78 17 108/69 94 11/06/16 02:44 95 11/06/16 00:19 20 11/06/16 00:16 97.0 82 17 118/70 99 11/05/16 23:00 18 11/05/16 20:16 97.5 81 17 101/69 96 11/05/16 19:52 93 Nasal Cannula 2.00 11/05/16 16:00 96.5 71 16 106/63 93 I/O 11/05/16 11/05/16 11/05/16 11/06/1617 3/4/17 07:00 15:00 23:00 07:00 15:00 23:00 Intake Total 515 ml 460 ml Output Total 300 ml 570 ml 300 ml Balance 515 ml 160 ml -570 ml -300 ml Intake Oral 460 ml IV Total 515 ml Output Urine Total 300 ml 570 ml 300 ml (Dex Burgos MD R1) Result Diagram: 11/04/16 0611 11/06/16 0646 Objective Remarks GEN: 71 y/o CM lying in bed with AMS. His is at the bedside. CV: Regular rate and rhythm without obvious MGR. LUNGS: Clear to auscultation anteriorly. Breathing unlabored on 6L nasal cannula. GI: Soft, with increased distension from prior exams. Soft BS appreciated. No masses appreciated. EXT: No edema or cyanosis. No calf tenderness. NEURO/PSYCH: AAOx3. CN 2-12 intact. Patient moving all 4 extremities in bed. Mumbling speech with some intermittent aphasia. (eDx Burgos MD R1) A/P Assessment and Plan Mr. 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 Discharge Planning Timeline unknown. WDW: Dr. Amador DW: Dr. Hannon (Dex Burgos MD R1) Attending Attestation Patient seen and examined. Case reviewed and discussed with the resident team. Agree with plan of care as discussed with me and documented in the resident note. transferred [place] [facility] and will be watched closely (Yamilet Amador MD) Problem List: (1) Altered mental status Status: Resolved Plan: Patient with acute episode of altered mental status. Halicat called due to AMS and desaturations to the 80s. Patient last received pain medication 11/05 at 2116. Patient remains neurologically intact with no focal deficits decreasing the likelihood of stroke. Patient to remain full code, but refuses tracheostomy and PEG tube placement if necessary. Imaging: Head CT: No acute intracranial abnormality CTA: No PE identified. Her consolidation in the left lower lobe with small left pleural effusion. Dilated and fluid-filled esophagus suggesting severe reflux. High risk of aspiration Abdomen pelvis CT: 3.2 x 2.3 cm right renal pelvis mass suspicious for malignancy causing hydronephrosis. Diffusely distended colon without signs of obstruction. Labs: ABG: PH 7.31, P CO2 50 Plan: CBC, CMP, lactic acid, ammonia, TSH, UA 1 hour trial of BiPAP at 10/5 with a repeat ABG afterwards to evaluate for worsening acidosis and CO2 retention 1 L normal saline bolus followed by normal saline at 140 mL per hour NG tube and brownlee placed Pain medications held at this time due to altered mental status Patient transferred to [facility] [place] further monitoring (2) Metastatic disease Status: Acute Plan: Patient with history of urinary bladder carcinoma s/p multiple tumor resections presenting with progressing lower back pain. Suspected to be due to metastasis as evidenced by imaging. Oncology consulted: Appreciate recommendations * CT-guided renal biopsy 11/03: Pathology pending * Increased Oramorph to 60mg Q8H with 30mg PO Q3H for breakthrough pain Urology: appreciate recommendations * Agree with biopsy (bone or renal) * Onset of complex masslike changes to right kidney may be related to chronic obstruction with infection however malignancy needs to be ruled out Radiation Oncology: Appreciate recommendations Imaging: * Chest CT: Bilateral pulmonary nodules characteristic of metastatic disease. Right renal mass. No evidence of mediastinal or hilar lymphadenopathy. No evidence of destructive bone lesions. * CT abdomen: Complex masslike enlargement of the upper and mid poles of the right kidney with associated lymphadenopathy. Chronic right hydronephrosis. New right basilar lung nodule characteristic of metastatic disease. Medications: Held due to AMS * Oramorph 60mg Q8H * Morphine 30mg PO Q3H for breakthrough pain 1-8 * Morphine 6mg IV Q6H for extreme pain 9-10 Relevant Imaging from outside facility MRI Impression from [facility] 1. Enhancing interosseous lesion at L2 extending into the right lateral mass; posterior elements and transverse process with surrounding necrotic soft tissue and neuro foramina involvement, impinging on the L2 nerve root, suggestive of metastatic disease until proven otherwise, less likely inflammatory. Secondary enhancing lesion in the sacrum slightly eccentric to the right measures 1.5 cm and a third ill-defined enhancement of the left sacrum adjacent to the sacroiliac joint. Bone scan and screening for occult carcinoma suggested. 2. Disc disease with grade 1 anterolisthesis L4-L5. Combination of disc herniation and facet hypertrophy is present narrowing the neural for him in a impinging on the L5 nerve roots. There is an underlying pars defect. 3. Herniation L5-S1 eccentric to the left. There is left lateral recess narrowing impinging the descending S1 nerve root. There is bilateral foraminal narrowing abutting the L5 nerve root (3) Bladder cancer Status: Chronic Plan: April of 2016 he was diagnosed with bladder carcinoma. Surgical resection by Dr. Duncan, urology, with the pathology report of low grade in April 2016. He did not require any radiation or chemotherapy treatments. Follow up cystoscopy showed multiple new tumors which were surgically removed by Dr. Duncan last week, 10/25/16, with pathology currently pending. -UA on admission showed elevated leukocytosis and moderate blood which may have been due to recent removal of Brownlee. Was treated empirically with Rocephin 2. Discontinue 11/03 as urine culture was negative 48 hours -Repeat UA on 11/04 showed continued leukocytosis and moderate blood with leukocyte esterase. Continue to monitor. See plan above (4) Atrial fibrillation Status: Chronic Plan: Patient with history of atrial fibrillation seen by Dr. Young. Continue metoprolol 50 mg twice a day Pradaxa 150mg BID for anticoagulation restarted s/p procedure as his urine is clear Monitor urine for continued hematuria (5) Constipation Status: Resolved Plan: Patient complaining of constipation likely due to his pain medication at home. Last bowel movement consisting of liquid diarrhea on 10/29 prior to admission. -Continue MiraLAX -Continue milk of magnesia and Dulcolax -Continue fluids to help with constipation (6) Creatinine elevation Status: Resolved Plan: Improved renal function with most recent creatinine of 1.37. Per chart review normal creatinine in April 2016 at 1.15. Normal saline at 140 mL per hour Encourage PO fluids with regular diet Continue monitor (7) Nutrition, metabolism, and development symptoms Status: Acute Plan: Fluids: NS at 140ml/hr Diet: NPO, aspiration risk Electrolytes: Pending. GI: Omeprazole daily DVT: FIGUEROA/SCDs, Pradaxa 150mg BID Chronic conditions: * HLD: Continue atorvastatin 20 mg daily * HTN: Continue nifedipine 90 mg twice a day and Metoprolol 50mg twice a day (Dex Burgos MD R1) Problem Qualifiers (1) Bladder cancer: Qualified Code: C67.9 - Malignant neoplasm of urinary bladder, unspecified site (2) Atrial fibrillation: Qualified Code: I48.91 - Atrial fibrillation, unspecified type (3) Constipation: Qualified Code: K59.03 - Drug-induced constipation Dex Burgos MD R1 Nov 06, 2016 15:15 Yamilet Amador MD Nov 11, 2016 15:09
[2016-11-06 15:49] LABS: AUTOMATED NEUTROPHIL # 7.7 TH/MM3 (1.8-7.7); BASOPHIL % 0.2 % (0.0-2.0); EOSINOPHIL # 0.1 TH/MM3 (0-0.4); EOSINOPHIL % 0.7 % (0.0-4.0); HEMO FLAGS DIFF FINAL; LYMPH % 4.3 % (9.0-44.0); LYMPHOCYTE # 0.4 TH/MM3 (1.0-4.8); MEAN CELL VOLUME 89.7 FL (80.0-100.0); MEAN CORPUSCULAR HEMOGLOBIN 31.3 PG (27.0-34.0); MEAN CORPUSCULAR HGB CONC 34.9 % (32.0-36.0); MONO % 7.3 % (0.0-8.0); NEUT % 87.5 % (16.0-70.0); PLATELET COUNT 219 TH/MM3 (150-450); RED BLOOD COUNT 4.13 MIL/MM3 (4.50-5.90); RED CELL DISTRIBUTION WIDTH 13.4 % (11.6-17.2); WHITE BLOOD COUNT 8.8 TH/MM3 (4.0-11.0)
[2016-11-06 16:11] LABS: ALT (GPT) 11 U/L (12-78); ANION GAP 11 MEQ/L (5-15); AST (GOT) 11 U/L (15-37); BICARBONATE 27.5 MEQ/L (21.0-32.0); BLOOD UREA NITROGEN 18 MG/DL (7-18); CHLORIDE 97 MEQ/L (98-107); GLOMERULAR FILTRATION RATE 48 ML/MIN (>89); POTASSIUM 4.4 MEQ/L (3.5-5.1); SODIUM (NA) 135 MEQ/L (136-145)
[2016-11-06 16:13] LABS: ALKALINE PHOSPHATASE 192 U/L (45-117); TOTAL BILIRUBIN ADULT 0.6 MG/DL (0.2-1.0)
--- NOTE | 2016-11-06 16:24 | RADRPT ---
EXAM DATE/TIME: 11/06/2016 16:06 [facility] COMPARISON: CT PULMONARY ANGIOGRAM, November 06, 2016, 11:06. INDICATIONS : Confirm NG Tube Placement. MEDICAL HISTORY : Carcinoma, bladder. Gastroesophageal reflux disease. Renal calculi. SURGICAL HISTORY : Bladder tumor resections, right total hip replacement. ENCOUNTER: Initial ACUITY: 1 day PAIN SCORE: Non-responsive. LOCATION: Bilateral chest FINDINGS: There is left lower lobe airspace disease and a small left effusion. NG tube is present and the dista l tip terminates at the expected location of the esophagogastric junction. CONCLUSION: NG tube as above. Sahil Yanez MD on November 06, 2016 at 16:22 Board Certified Radiologist. This report was verified electronically.
[2016-11-06] MEDS ORDERED: GLUCAGON 1 MG/ML VIAL OTHER PRN (17:45)
[2016-11-06] MEDS ORDERED: RESP: ALBUTEROL 2.5 MG/IPRATROPIUM 0.5 MG NEB (PRN) NEB (17:45)
[2016-11-06] MEDS ORDERED: DEXTROSE 50% IN WATER 50 ML VIAL(D50) IV PUSH PRN (17:45)
[2016-11-06] MEDS: RESP: ALBUTEROL 2.5 MG/IPRATROPIUM 0.5 MG NEB (SCH) NEB ×2 (17:45→20:55)
[2016-11-06 17:50] LABS: BLOOD GAS BASE EXCESS -2.3 mmol/L (-2-2); BLOOD GAS CARBOXYHEMOGLOBIN 1.6 % (0-4); BLOOD GAS HCO3 23 mmol/L (22-26); BLOOD GAS METHEMOGLOBIN 1.2 % (0-2); BLOOD GAS O2 HGB SATURATION 94 % (90-100); BLOOD GAS PCO2 43 mmHg (38-42); BLOOD GAS PO2 81 mmHg (61-120); BLOOD GAS TOTAL HGB 12.1 G/DL (12.0-16.0); CRITICAL VALUE NO; LITER FLOW 5 L/M; OXYGEN DEVICE NASAL CANNULA; TEMP CORR TO 98.6
[2016-11-06 17:51] LABS: DRAW SITE RT RADIAL; NUMBER OF ARTERIAL PUNCTURES 1; STAT NO; ULNAR PULSE PRESENT
[2016-11-06] MEDS: DEXT 5%-NACL 0.9% 1000 ML INJ 1,000 ML IV SCH (17:53)
[2016-11-06] MEDS: INSULIN NovoLIN REGULAR SUPPLEMENTAL SCALE SQ SCH (18:00)
--- NOTE | 2016-11-06 18:22 | MB ---
cc: WAN SMITH DATE OF CONSULTATION 11/06/16 DATE OF 1945 REASON FOR CONSULTATION Critical care management. HISTORY OF PRESENT ILLNESS The patient is a 71-year-old male with past medical history of bladder carcinoma with metastasis to the bone, initial diagnosis in April 2016, hypertension, dyslipidemia, melanoma, atrial fibrillation on Pradaxa and gastroesophageal reflux disease. The patient was admitted to [facility] on November 02 under family medicine team for worsening back pain likely secondary to metastasis to the lumbar spine and mild acute kidney injury. During his hospital course, the patient was seen by Dr. Warner from oncology service and Dr. Duncan from urology. He underwent CT-guided needle biopsy of a right renal mass which showed invasive urothelial carcinoma. The patient is scheduled to undergo radiation treatment on Tuesday per oncology team. The patient had altered mental status earlier today where he was found lethargic with intermittent confusion and ABG was performed on 6 liters simple mask which showed mild acute respiratory acidosis with a pH of 7.31, CO2 50, pAO2 of 92, bicarb 24, saturation of 94%. He was subsequently transferred to [facility] for closer observation and critical care medicine was consulted for critical care management. The patient had a CT angiogram of the chest yesterday which showed no PE identified, however airspace consolidation in the left lower lobe noted with a small left pleural effusion and dilated fluid filled esophagus suggesting severe reflux. He also had a CT scan of the brain yesterday which showed no acute intracranial abnormality. When seen, the patient is on 3 liters oxygen with a saturation of 93-95%. Current blood pressure of 130/73 and pulse of 90. The patient is awake with intermittent confusion. The patient received morphine sulfate 30 mg p.o. at 21:00 yesterday and no other pain medications given since then. PAST MEDICAL HISTORY 1. Squamous cell carcinoma of the skin and melanoma 2. Urinary bladder cancer diagnosed in April 2016 and recently with recurrent disease, 3. Hyperlipidemia, 4. Hypertension, 5. History of kidney stones 6. Gastroesophageal reflux disease, 7. Atrial fibrillation. PAST SURGICAL HISTORY 1. Previous right hip replacement. 2. Previous cystoscopy with TURP in April of last year, also this month. 3. Multiple skin biopsies ALLERGIES IODINE FAMILY HISTORY Coronary artery disease and breast cancer runs in the family. SOCIAL HISTORY Nonsmoker, quit drinking in 2000. 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 Lipitor 2. Pradaxa 3. Nifedipine 4. Protonix 5. IV fluids. REVIEW OF SYSTEMS As per HPI. Rest of review of system unremarkable PHYSICAL EXAMINATION GENERAL: A 71-year-old male lying in bed in no acute respiratory distress. VITAL SIGNS: Temperature 98.5, pulse of 90, blood pressure 130/73, saturation 93-95% on 3 liters oxygen. HEENT: Atraumatic, normocephalic. Pupils equal, round, reactive to light and accommodation. Extraocular muscles intact. Conjunctivae pink. Nonicteric sclerae. Oral mucosa within normal. NECK: Supple. No JVD, adenopathy or thyromegaly. Trachea midline CARDIOVASCULAR: Regular rate and rhythm. Normal S1-S2. No murmurs, rubs or gallops noted. PULMONARY: Bilateral equal entry. No rales or wheezing. ABDOMEN: Soft, obese, nontender, no distension. Positive bowel sounds. EXTREMITIES: No cyanosis, clubbing or edema. NEUROLOGIC: No focal sensory deficit. Awake with intermittent confusion. LABORATORY DATA Sodium of 135, potassium 4.4, chloride 97, CO2 27, BUN 18, creatinine 1.44, glucose 121, lactic acid 1.0, AST 11, ALT 11, alk phos 192, ammonia level 12, TSH 0.99. WBC 8.8, hemoglobin 12.9, hematocrit 37, platelet count 219. ABG is 7.31, CO2 50, pAO2 92, bicarb 24, sats 94%, INR 1.1, PT 12.4. IMAGING STUDIES CT angiogram of the chest from November 06 showed no evidence of PE. However it showed left lower lobe consolidation versus small left effusion. CT brain on November 06 showed no acute intracranial abnormality. IMPRESSION 1. Mild acute hypercapnic respiratory acidosis. 2. Altered mental status. 3. Left lower lobe consolidation 4. Mild acute kidney injury. 5. Hyponatremia 6. Recurrent bladder cancer with metastasis to the bone. 7. Atrial fibrillation. 8. Hypertension 9. Gastroesophageal reflux disease RECOMMENDATIONS 1. Monitor neuro status closely and avoid any sedatives. CT scan of the brain on November 06 negative for acute intracranial abnormality. His ammonia level measured at 12 and TSH at 0.99. 2. Continue with oxygen and maintain sats above 92%. 3. Bronchodilators in the form of DuoNeb q. 6+ q. 2 p.r.n. for shortness of breath 4. Aspiration precautions. 5. Monitor heart rate and blood pressure closely and maintain MAP greater than 65 mmHg. Lactic acid level measured at 1.0. Continue with antihypertensive meds. The patient is on Lopressor 50 mg b.i.d. and nifedipine 90 mg b.i.d. 6. Monitor renal function. Is and Os and electrolyte replacement per protocol. 7. Change IV fluids to D5 NS at 75 mL an hour. 8. Keep n.p.o. for now and continue with Protonix 40 mg daily. NG tube to low intermittent wall suction. 9. Place on empiric antibiotics in the form of Zosyn and monitor for signs of infections which include fever and WBC. We will obtain a sputum culture with gram stain. We will check strep pneumoniae Legionella urinary antigen. 10. Sliding scale insulin with Accu-Chek q. 6-hour if needed for glycemic control. 11. Monitor CBC and coags. Hematology-oncology following. The patient is for possible radiation on Tuesday. 12. GI prophylaxis with Protonix 40 mg daily and DVT prophylaxis with SCDs. In addition, the patient is on Pradaxa 150 mg b.i.d. Further recommendations will be based on hospital course. Level IV. MD SHAYNE Jacinto/ /5:25 PM /5:53 PM
--- NOTE | 2016-11-06 19:30 | EKG ---
Date Performed: 11/06/2016 Time Performed: 10:31:43 PTAGE: 71 years EKG: ATRIAL FIBRILLATION Since previous tracing, no significant change noted ABNORMAL RHYTHM ECG PREVIOUS TRACING : 11/01/2016 14.06 DOCTOR: Howard Campuzano Interpretating Date/Time 11/06/2016 19:29:32
[2016-11-06] MEDS: PIPERACIL-TAZO 3.375 GM PREMIX 50 ML IV SCH (20:00)
[2016-11-06] MEDS: ATORVASTATIN 20 MG TAB PO SCH (21:00)
[2016-11-06] MEDS: BISACODYL 10 MG SUPP PR SCH (21:00)
[2016-11-07] VITALS (14 sets, daily range): BP systolic 104–122; BP diastolic 57–76; PULSE 72–97; RESP 18–28; TEMP 98–98.5; O2SAT 94–96
[2016-11-07] MEDS: RESP: ALBUTEROL 2.5 MG/IPRATROPIUM 0.5 MG NEB (SCH) NEB ×4 (03:33→22:00)
[2016-11-07] MEDS: INSULIN NovoLIN REGULAR SUPPLEMENTAL SCALE SQ SCH ×4 (06:00→18:00)
[2016-11-07] MEDS: DEXT 5%-NACL 0.9% 1000 ML INJ 1,000 ML IV SCH (06:16)
[2016-11-07] MEDS: PIPERACIL-TAZO 3.375 GM PREMIX 50 ML IV SCH ×4 (06:16→19:42)
[2016-11-07 06:31] LABS: ALT (GPT) 8 U/L (12-78); ANION GAP 8 MEQ/L (5-15); AST (GOT) 10 U/L (15-37); BICARBONATE 25.6 MEQ/L (21.0-32.0); BLOOD UREA NITROGEN 18 MG/DL (7-18); CHLORIDE 101 MEQ/L (98-107); GLOMERULAR FILTRATION RATE 52 ML/MIN (>89); MAGNESIUM 2.8 MG/DL (1.5-2.5); POTASSIUM 4.2 MEQ/L (3.5-5.1); SODIUM (NA) 135 MEQ/L (136-145)
[2016-11-07 06:33] LABS: ALKALINE PHOSPHATASE 168 U/L (45-117); TOTAL BILIRUBIN ADULT 0.5 MG/DL (0.2-1.0)
[2016-11-07 06:45] LABS: AUTOMATED NEUTROPHIL # 5.5 TH/MM3 (1.8-7.7); BASOPHIL % 0.2 % (0.0-2.0); EOSINOPHIL # 0.1 TH/MM3 (0-0.4); EOSINOPHIL % 1.7 % (0.0-4.0); HEMATOCRIT 34.6 % (39.0-51.0); HEMO FLAGS DIFF FINAL; LYMPH % 7.5 % (9.0-44.0); LYMPHOCYTE # 0.5 TH/MM3 (1.0-4.8); MEAN CELL VOLUME 89.8 FL (80.0-100.0); MEAN CORPUSCULAR HEMOGLOBIN 31.4 PG (27.0-34.0); MONO % 9.5 % (0.0-8.0); NEUT % 81.1 % (16.0-70.0); PLATELET COUNT 183 TH/MM3 (150-450); RED BLOOD COUNT 3.85 MIL/MM3 (4.50-5.90); RED CELL DISTRIBUTION WIDTH 13.7 % (11.6-17.2); WHITE BLOOD COUNT 6.8 TH/MM3 (4.0-11.0)
--- NOTE | 2016-11-07 07:29 | HHI.CCPN ---
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 The patient was admitted to [facility] on November 02 under family medicine team for worsening back pain likely secondary to metastasis to the lumbar spine and mild acute kidney injury. During his hospital course, the patient was seen by Dr. Warner from oncology service and Dr. Duncan from urology. He underwent CT-guided needle biopsy of a right renal mass which showed invasive urothelial carcinoma. The patient is scheduled to undergo radiation treatment on Tuesday per oncology team. The patient had altered mental status earlier today where he was found lethargic with intermittent confusion and ABG was performed on 6 liters simple mask which showed mild acute respiratory acidosis with a pH of 7.31, CO2 50, pAO2 of 92, bicarb 24, saturation of 94%. He was subsequently transferred to [facility] for closer observation and critical care medicine was consulted for critical care management. The patient had a CT angiogram of the chest yesterday which showed no PE identified, however airspace consolidation in the left lower lobe noted with a small left pleural effusion and dilated fluid filled esophagus suggesting severe reflux. He also had a CT scan of the brain yesterday which showed no acute intracranial abnormality. When seen, the patient is on 3 liters oxygen with a saturation of 93-95%. Current blood pressure of 130/73 and pulse of 90. The patient is awake with intermittent confusion. The patient received morphine sulfate 30 mg p.o. at 21:00 yesterday and no other pain medications given since then. 11/07 No acute events overnight. Patient is feeling better since yesterday.Afebrile. Objective Vital Signs Date Time Temp Pulse Resp B/P Pulse Ox O2 Delivery O2 Flow Rate FiO2 11/07/16 04:00 98.1 80 20 111/63 96 11/07/16 00:10 Nasal Cannula 6.00 11/04/16 09:29 21 Intake and Output 11/06/16 11/06/16 11/07/16 08:00 16:00 00:00 Intake Total 591 ml Output Total 300 ml 1000 ml Balance -300 ml -409 ml Result Diagram: 11/07/16 0537 11/07/16 0537 Other Results Laboratory Tests Test 11/06/16 11/06/16 11/06/16 11/06/16 10:15 13:10 15:38 17:44 Blood Gas Puncture Site LT RADIAL RT RADIAL Blood Gas Patient Temperature 98.6 98.6 Blood Gas HCO3 24 mmol/L 23 mmol/L Blood Gas Base Excess -1.0 mmol/L -2.3 mmol/L Blood Gas Oxygen Saturation 94 % 94 % Arterial Blood pH 7.31 7.34 Arterial Blood Partial 50 mmHg 43 mmHg Pressure CO2 Arterial Blood Partial 92 mmHg 81 mmHg Pressure O2 Arterial Blood Oxygen Content 16.8 Vol % 16.0 Vol % Arterial Blood 1.6 % 1.6 % Carboxyhemoglobin Arterial Blood Methemoglobin 1.2 % 1.2 % Blood Gas Hemoglobin 12.6 G/DL 12.1 G/DL Oxygen Delivery Device SIMPLE MSK NASAL CANNULA Blood Gas Liter Flow 6 L/M 5 L/M Urine Color LIGHT-YELLOW Urine Turbidity CLEAR Urine pH 6.5 Urine Specific [place] 1.007 Urine Protein 300 mg/dL Urine Glucose (UA) 1000 mg/dL Urine Ketones NEG mg/dL Urine Occult Blood MOD Urine Nitrite NEG Urine Bilirubin NEG Urine Urobilinogen LESS THAN 2.0 MG/DL Urine Leukocyte Esterase TRACE Urine RBC 65 /hpf Urine WBC 16 /hpf Urine Squamous Epithelial 1 /hpf Cells Urine Renal Epithelial Cells <1 /hpf Urine Bacteria RARE /hpf Urine Mucus FEW /lpf Microscopic Urinalysis Comment CULTURE INDICATED White Blood Count 8.8 TH/MM3 Red Blood Count 4.13 MIL/MM3 Hemoglobin 12.9 GM/DL Hematocrit 37.0 % Mean Corpuscular Volume 89.7 FL Mean Corpuscular Hemoglobin 31.3 PG Mean Corpuscular Hemoglobin 34.9 % Concent Red Cell Distribution Width 13.4 % Platelet Count 219 TH/MM3 Mean Platelet Volume 6.9 FL Neutrophils (%) (Auto) 87.5 % Lymphocytes (%) (Auto) 4.3 % Monocytes (%) (Auto) 7.3 % Eosinophils (%) (Auto) 0.7 % Basophils (%) (Auto) 0.2 % Neutrophils # (Auto) 7.7 TH/MM3 Lymphocytes # (Auto) 0.4 TH/MM3 Monocytes # (Auto) 0.6 TH/MM3 Eosinophils # (Auto) 0.1 TH/MM3 Basophils # (Auto) 0.0 TH/MM3 CBC Comment DIFF FINAL Differential Comment Sodium Level 135 MEQ/L Potassium Level 4.4 MEQ/L Chloride Level 97 MEQ/L Carbon Dioxide Level 27.5 MEQ/L Anion Gap 11 MEQ/L Blood Urea Nitrogen 18 MG/DL Creatinine 1.44 MG/DL Estimat Glomerular Filtration 48 ML/MIN Rate Random Glucose 121 MG/DL Lactic Acid Level 1.0 mmol/L Calcium Level 8.0 MG/DL Total Bilirubin 0.6 MG/DL Aspartate Amino Transf 11 U/L (AST/SGOT) Alanine Aminotransferase 11 U/L (ALT/SGPT) Alkaline Phosphatase 192 U/L Ammonia 12 MCMOL/L Total Protein 6.5 GM/DL Albumin 2.8 GM/DL Test 11/07/16 05:37 White Blood Count 6.8 TH/MM3 Red Blood Count 3.85 MIL/MM3 Hemoglobin 12.1 GM/DL Hematocrit 34.6 % Mean Corpuscular Volume 89.8 FL Mean Corpuscular Hemoglobin 31.4 PG Mean Corpuscular Hemoglobin 35.0 % Concent Red Cell Distribution Width 13.7 % Platelet Count 183 TH/MM3 Mean Platelet Volume 7.3 FL Neutrophils (%) (Auto) 81.1 % Lymphocytes (%) (Auto) 7.5 % Monocytes (%) (Auto) 9.5 % Eosinophils (%) (Auto) 1.7 % Basophils (%) (Auto) 0.2 % Neutrophils # (Auto) 5.5 TH/MM3 Lymphocytes # (Auto) 0.5 TH/MM3 Monocytes # (Auto) 0.6 TH/MM3 Eosinophils # (Auto) 0.1 TH/MM3 Basophils # (Auto) 0.0 TH/MM3 CBC Comment DIFF FINAL Differential Comment Sodium Level 135 MEQ/L Potassium Level 4.2 MEQ/L Chloride Level 101 MEQ/L Carbon Dioxide Level 25.6 MEQ/L Anion Gap 8 MEQ/L Blood Urea Nitrogen 18 MG/DL Creatinine 1.36 MG/DL Estimat Glomerular Filtration 52 ML/MIN Rate Random Glucose 130 MG/DL Calcium Level 7.9 MG/DL Phosphorus Level 2.1 MG/DL Magnesium Level 2.8 MG/DL Total Bilirubin 0.5 MG/DL Aspartate Amino Transf 10 U/L (AST/SGOT) Alanine Aminotransferase 8 U/L (ALT/SGPT) Alkaline Phosphatase 168 U/L Total Protein 5.8 GM/DL Albumin 2.4 GM/DL Imaging Last Impressions Head CT 3/4/17 0000 Signed Impressions: Service Date/Time: Sunday, November 06, 2016 10:52 - CONCLUSION: No acute intracranial abnormality is identified. Sheldon Goodwin MD Chest X-Ray 11/06/16 Signed Impressions: Service Date/Time: Sunday, November 06, 2016 16:06 - CONCLUSION: NG tube as above. Sahil Yanez MD CT Angiography 11/06/16 Signed Impressions: Service Date/Time: Sunday, November 06, 2016 11:06 - CONCLUSION: 1. Examination quality is degraded by respiratory motion artifact. No PE is identified. 2. Airspace consolidation in the left lower lobe with small left pleural effusion. 3. Dilated and fluid-filled esophagus suggesting severe reflux. The patient is at high risk for aspiration. Sheldon Goodwin MD Abdomen/Pelvis CT 11/06/16 Signed Impressions: Service Date/Time: Sunday, November 06, 2016 11:06 - CONCLUSION: 1. Persistent abnormal right kidney with cortical thinning and abnormal delayed enhancement. There is also hydronephrosis that appears to because by a obstructing urothelial mass in the renal pelvis measuring 3.2 x 2.3 cm. This is highly suspicious for malignancy and there is perinephric stranding and an adjacent enlarged lymph node. 2. Urinary bladder is not well visualized do to beam hardening artifact. However, there is suspected wall thickening along the lateral aspects bilaterally. 3. Diffusely distended colon without signs of obstruction. Sheldon Goodwin MD Renal Biopsy CT 11/03/16 Signed Impressions: Service Date/Time: Thursday, November 03, 2016 14:31 - CONCLUSION: Uncomplicated CT guided biopsy. Donny Meyer MD SPECT Scan-Bone Nuclear Medicine 11/02/16 Signed Impressions: Service Date/Time: Wednesday, November 02, 2016 13:20 - CONCLUSION: 1. Scattered areas of abnormal tracer accumulation involving the low cervical spine, thoracic spine, the lumbar spine, the right fifth rib and the sacrum concerning for metastatic disease. Esvin Turner MD Chest CT 11/01/16 Signed Impressions: Service Date/Time: Tuesday, November 01, 2016 19:59 - CONCLUSION: Bilateral pulmonary nodules characteristic of metastatic disease. Right renal mass. No evidence of mediastinal or hilar lymphadenopathy. No evidence of destructive bone lesions. Pravin Jackman MD Objective Remarks GENERAL: PAtient is 71 yo lying in be din NAD SKIN: Warm and dry. HEAD: Normocephalic. EYES: No scleral icterus. No injection or drainage. NECK: Supple, trachea midline. No JVD or lymphadenopathy. CARDIOVASCULAR: Regular rate and rhythm without murmurs, gallops, or rubs. RESPIRATORY: Breath sounds equal bilaterally. No accessory muscle use. GASTROINTESTINAL: Abdomen soft, non-tender, nondistended. MUSCULOSKELETAL: No cyanosis, or edema. Neuro: Awake and alert A/P Assessment and Plan 1. Mild acute hypercapnic respiratory acidosis. 2. Altered mental status. 3. Left lower lobe consolidation 4. Mild acute kidney injury. 5. Hyponatremia 6. Recurrent bladder cancer with metastasis to the bone. 7. Atrial fibrillation. 8. Hypertension 9. Gastroesophageal reflux disease Plan Neuro: Monitor neuro status closely and avoid any sedatives. CT brain /: negative for acute intracranial abnormality. Ammonia level : 12 and TSH at 0.99. Pulm: Continue with oxygen and maintain sats above 92%. Bronchodilators, Aspiration precautions. CV: Monitor HR and BP and maintain MAP >65 mmHg. Lactic acid: 1.0. On Lopressor 50 mg b.i.d and nifedipine 90 mg b.i.d. :Monitor renal function. Is and Os and electrolyte replacement per protocol. On D5 NS at 75 mL an hour. GI: Speech eval, diet per speech ID: Continue with abx (Zosyn) and monitor for signs of infections(fever and WBC) . Follow up on strep pneumoniae Legionella urinary antigen. Endo: SSI with Accu-Chek q. 6-hour if needed for glycemic control. Heme: Monitor CBC and coags. Hematology-oncology following. For possible radiation on Tuesday. GI prophylaxis with Protonix 40 mg daily and DVT prophylaxis with SCDs/on Pradaxa 150 mg b.i.d. Will sign off Level 2 Tamara Rosales MD Nov 07, 2016 07:29
[2016-11-07] MEDS ORDERED: MAGNESIUM SULFATE INJ 2 GM in SODIUM CHLORIDE 0.9% INJ 96 ML IV PRN (07:30)
[2016-11-07] MEDS ORDERED: MAGNESIUM OXIDE 400 MG TAB PO PRN (07:30)
[2016-11-07] MEDS ORDERED: POTASSIUM PHOSPHATE MONOBASIC 500 MG TAB PO PRN (07:30)
[2016-11-07] MEDS ORDERED: POTASSIUM CHLOR 40 MEQ PREMIX 100 ML IV PRN ×2 (07:30)
[2016-11-07] MEDS ORDERED: POTASSIUM PHOSPHATE MONOBASIC 500 MG TAB PO/TUBE PRN (07:30)
[2016-11-07] MEDS ORDERED: POTASSIUM PHOSPHATE INJ 30 MMOL in SODIUM CHLOR 0.9% 250 ML INJ 250 ML IV PRN (07:30)
[2016-11-07] MEDS ORDERED: POTASSIUM CHLOR 20 MEQ PREMIX 100 ML IV PRN ×2 (07:30)
[2016-11-07] MEDS ORDERED: MAGNESIUM SULFATE INJ 4 GM in SODIUM CHLORIDE 0.9% INJ 92 ML IV PRN (07:30)
[2016-11-07] MEDS ORDERED: SODIUM PHOSPHATE INJ 30 MMOL in SODIUM CHLOR 0.9% 250 ML INJ 240 ML IV PRN (07:30)
[2016-11-07] MEDS ORDERED: POTASSIUM CL 40 MEQ/30 ML LIQ UDC PO/TUBE PRN ×2 (07:30)
[2016-11-07] MEDS: NIFEdipine 90 MG SUSTAINED RELEASE TAB PO SCH ×2 (09:00→19:42)
[2016-11-07] MEDS: POLYETHYLENE GLYCOL 17 GM PKG PO SCH (09:00)
[2016-11-07] MEDS: METOPROLOL TARTRATE 50 MG TAB PO SCH ×2 (09:00→19:43)
[2016-11-07] MEDS: DABIGATRAN ETEXILATE 150 MG CAP PO SCH ×2 (09:00→19:42)
[2016-11-07] MEDS: PANTOPRAZOLE SOD 40 MG DELAYED RELEASE TAB PO SCH (09:00)
[2016-11-07] MEDS: SODIUM CHLORIDE 0.9% FLUSH 5 ML FLUSH FLUSH SCH ×2 (09:00→19:43)
[2016-11-07] MEDS: MAGNESIUM HYDROXIDE SUSP 30 ML CUP PO SCH ×2 (09:00→19:42)
--- NOTE | 2016-11-07 10:26 | PD.ONC.PN ---
Subjective Subjective Remarks Afebrile overnight. Pt resting in bed asleep in no distress. He states he feels somewhat better today. Speech is more clear. He continues to be lethargic. He states his pain is about a "2". Per his he had a very large BM yesterday. Objective Data Date Time Temp Pulse Resp B/P Pulse Ox O2 Delivery O2 Flow Rate FiO2 11/07/16 09:12 95 Nasal Cannula 5.00 11/07/16 04:00 98.1 80 20 111/63 96 11/07/16 04:00 80 11/07/16 02:00 82 11/07/16 00:10 96 Nasal Cannula 6.00 11/07/16 00:00 98.5 97 20 111/57 95 11/07/16 00:00 97 11/06/16 22:00 124 11/06/16 21:00 94 Nasal Cannula 4.00 11/06/16 20:00 105 11/06/16 20:00 98.7 105 20 104/79 95 11/06/16 18:00 119 11/06/16 16:00 98.3 116 20 130/63 95 11/06/16 12:10 98.5 97 16 111/76 94 11/06/16 11:47 97 3.00 Result Diagram: 11/07/16 0537 11/07/16 0537 Laboratory Results Laboratory Tests Test 11/06/16 11/06/16 11/06/16 11/06/16 10:15 13:10 15:38 17:44 Blood Gas Puncture Site LT RADIAL RT RADIAL Blood Gas Patient Temperature 98.6 98.6 Blood Gas HCO3 24 mmol/L 23 mmol/L Blood Gas Base Excess -1.0 mmol/L -2.3 mmol/L Blood Gas Oxygen Saturation 94 % 94 % Arterial Blood pH 7.31 7.34 Arterial Blood Partial 50 mmHg 43 mmHg Pressure CO2 Arterial Blood Partial 92 mmHg 81 mmHg Pressure O2 Arterial Blood Oxygen Content 16.8 Vol % 16.0 Vol % Arterial Blood 1.6 % 1.6 % Carboxyhemoglobin Arterial Blood Methemoglobin 1.2 % 1.2 % Blood Gas Hemoglobin 12.6 G/DL 12.1 G/DL Oxygen Delivery Device SIMPLE MSK NASAL CANNULA Blood Gas Liter Flow 6 L/M 5 L/M Urine Color LIGHT-YELLOW Urine Turbidity CLEAR Urine pH 6.5 Urine Specific [place] 1.007 Urine Protein 300 mg/dL Urine Glucose (UA) 1000 mg/dL Urine Ketones NEG mg/dL Urine Occult Blood MOD Urine Nitrite NEG Urine Bilirubin NEG Urine Urobilinogen LESS THAN 2.0 MG/DL Urine Leukocyte Esterase TRACE Urine RBC 65 /hpf Urine WBC 16 /hpf Urine Squamous Epithelial 1 /hpf Cells Urine Renal Epithelial Cells <1 /hpf Urine Bacteria RARE /hpf Urine Mucus FEW /lpf Microscopic Urinalysis Comment CULTURE INDICATED White Blood Count 8.8 TH/MM3 Red Blood Count 4.13 MIL/MM3 Hemoglobin 12.9 GM/DL Hematocrit 37.0 % Mean Corpuscular Volume 89.7 FL Mean Corpuscular Hemoglobin 31.3 PG Mean Corpuscular Hemoglobin 34.9 % Concent Red Cell Distribution Width 13.4 % Platelet Count 219 TH/MM3 Mean Platelet Volume 6.9 FL Neutrophils (%) (Auto) 87.5 % Lymphocytes (%) (Auto) 4.3 % Monocytes (%) (Auto) 7.3 % Eosinophils (%) (Auto) 0.7 % Basophils (%) (Auto) 0.2 % Neutrophils # (Auto) 7.7 TH/MM3 Lymphocytes # (Auto) 0.4 TH/MM3 Monocytes # (Auto) 0.6 TH/MM3 Eosinophils # (Auto) 0.1 TH/MM3 Basophils # (Auto) 0.0 TH/MM3 CBC Comment DIFF FINAL Differential Comment Sodium Level 135 MEQ/L Potassium Level 4.4 MEQ/L Chloride Level 97 MEQ/L Carbon Dioxide Level 27.5 MEQ/L Anion Gap 11 MEQ/L Blood Urea Nitrogen 18 MG/DL Creatinine 1.44 MG/DL Estimat Glomerular Filtration 48 ML/MIN Rate Random Glucose 121 MG/DL Lactic Acid Level 1.0 mmol/L Calcium Level 8.0 MG/DL Total Bilirubin 0.6 MG/DL Aspartate Amino Transf 11 U/L (AST/SGOT) Alanine Aminotransferase 11 U/L (ALT/SGPT) Alkaline Phosphatase 192 U/L Ammonia 12 MCMOL/L Total Protein 6.5 GM/DL Albumin 2.8 GM/DL Test 11/07/16 05:37 White Blood Count 6.8 TH/MM3 Red Blood Count 3.85 MIL/MM3 Hemoglobin 12.1 GM/DL Hematocrit 34.6 % Mean Corpuscular Volume 89.8 FL Mean Corpuscular Hemoglobin 31.4 PG Mean Corpuscular Hemoglobin 35.0 % Concent Red Cell Distribution Width 13.7 % Platelet Count 183 TH/MM3 Mean Platelet Volume 7.3 FL Neutrophils (%) (Auto) 81.1 % Lymphocytes (%) (Auto) 7.5 % Monocytes (%) (Auto) 9.5 % Eosinophils (%) (Auto) 1.7 % Basophils (%) (Auto) 0.2 % Neutrophils # (Auto) 5.5 TH/MM3 Lymphocytes # (Auto) 0.5 TH/MM3 Monocytes # (Auto) 0.6 TH/MM3 Eosinophils # (Auto) 0.1 TH/MM3 Basophils # (Auto) 0.0 TH/MM3 CBC Comment DIFF FINAL Differential Comment Sodium Level 135 MEQ/L Potassium Level 4.2 MEQ/L Chloride Level 101 MEQ/L Carbon Dioxide Level 25.6 MEQ/L Anion Gap 8 MEQ/L Blood Urea Nitrogen 18 MG/DL Creatinine 1.36 MG/DL Estimat Glomerular Filtration 52 ML/MIN Rate Random Glucose 130 MG/DL Calcium Level 7.9 MG/DL Phosphorus Level 2.1 MG/DL Magnesium Level 2.8 MG/DL Total Bilirubin 0.5 MG/DL Aspartate Amino Transf 10 U/L (AST/SGOT) Alanine Aminotransferase 8 U/L (ALT/SGPT) Alkaline Phosphatase 168 U/L Total Protein 5.8 GM/DL Albumin 2.4 GM/DL Culture Results Microbiology Date/Time Procedure Status Source Growth 11/06/16 13:10 Urine Culture Received Urine Clean Catch Pending 11/06/16 13:10 Legionella Antigen - Final Complete Urine Random Urine PRESUMPTIVE NEGATIVE FOR LEGIONELLA P... 11/06/16 13:10 Streptococcus pneumoniae Antigen (M - Final Complete Urine Random Urine PRESUMPTIVE NEGATIVE FOR STREPTOCOCCU... 11/06/16 19:00 Gram Stain - Final Resulted Sputum Expectorated Sputum 11/06/16 19:00 Sputum Culture Resulted Sputum Expectorated Sputum Pending Administered Medications Medications (Trade) Dose Ordered Sig/Blair Route PRN Reason Start Time Stop Time Status Last Admin Dose Admin Atorvastatin Calcium (Lipitor) 20 mg HS PO 11/01/16 21:00 11/06/16 21:00 Metoprolol Tartrate (Lopressor) 50 mg BID PO 11/01/16 21:00 11/06/16 21:00 Nifedipine (Procardia Xl) 90 mg BID PO 11/01/16 21:00 11/06/16 21:00 Pantoprazole Sodium (Protonix) 40 mg DAILY PO 11/02/16 09:00 11/06/16 08:29 IV Flush (NS Flush) 2 ml BID FLUSH 11/01/16 12:00 11/06/16 20:00 Bisacodyl (Dulcolax Supp) 10 mg HS [place] 11/02/16 21:00 11/05/16 21:18 Magnesium Hydroxide (Milk Of Haroon Liq) 30 ml Q12H PO 11/03/16 09:00 11/06/16 21:00 Polyethylene Glycol (Miralax) 17 gm DAILY PO 11/03/16 10:30 11/06/16 08:27 Ondansetron HCl (Zofran Inj) 4 mg Q6HR PRN IV PUSH NAUSEA 11/04/16 13:30 11/06/16 04:08 Morphine Sulfate (Morphine Inj) 6 mg Q6H PRN IV PUSH PAIN SCALE 9 TO 10 11/04/16 13:30 Hold 11/04/16 23:39 Promethazine HCl (Phenergan) 25 mg Q6H PRN PO NAUSEA OR VOMITING 11/05/16 00:00 11/06/16 06:02 Morphine Sulfate (Msir) 30 mg Q3H PRN PO PAIN 1-8 11/05/16 10:30 Hold 11/05/16 21:17 Morphine Sulfate (Oramorph Sr) 60 mg Q8HR PO 11/05/16 14:00 Hold 11/05/16 21:18 Dabigatran 150 mg 150 mg BID PO 11/05/16 21:00 11/06/16 08:28 Dextrose/Sodium Chloride 1,000 ml @ 75 mls/hr [id number] IV 11/06/16 17:45 11/07/16 06:16 Piperacillin Sod/ Tazobactam Sod (Zosyn 3.375 Gm Premix) 50 ml @ 100 mls/hr Q6H IV 11/06/16 20:00 11/07/16 06:16 Objective Remarks GENERAL: Older male, lying in bed in no distress with at bedside. SKIN: Warm and dry. HEAD: Normocephalic. EYES: No injection or drainage. NECK: Supple, trachea midline. CARDIOVASCULAR: +S1/S2. No murmur RESPIRATORY: Lungs clear anteriorly. Pt on 5L O2 via NC. GASTROINTESTINAL: Abdomen protuberant, soft. +BS. EXTREMITIES: No edema. SCD's to BLE. MUSCULOSKELETAL: Generalized weakness. NEUROLOGICAL: Remains lethargic, but speech is less garbled than yesterday. He has equal center manager strengths. Follows all commands. Answering questions appropriately. Assessment/Plan Problem List: (1) Bladder cancer Status: Chronic Plan: 11/07/16: Pt remains lethargic. Speech clearer today. Will move forward with palliative treatment once acute issues are resolved. 11/06/16: stat CT scan of the brain. Pt lethargic, mumbling. This is a change from yesterday as he was alert and engaged in conversation. 11/05/16: Path results show transitional cell carcinoma. Pt will need to followup after discharge for chemo, radiation. 11/04/16: awaiting pathology results. Pain controlled. discussion transitioning to oral breakthrough pain medications. discussed maintaining bowel regimen while on opiates. 11/02: CT C/A/P today and bone scan today. after bone scan will determine which area is best to biopsy History: --had Noninvasive low grade urinary bladder cancer diagnosed in April 2016. --recently had cystoscopy showed multiple new bladder tumors. --s/p transurethral resection of the bladder tumor and the pathology report came back as low grade noninvasive papillary urothelial carcinoma. --MRI lumbar spine showed abnormal signal and marrow infiltrative lesion at L2 to the right of the midline with enhancement extending into the right pedicle and the right transverse process with surrounding soft tissue enhancement extending into the right neural foramina and epidural space. + second rim enhancing lesion measuring 1.5 cm in the right qamar-sacrum noted. Additional ill-defined enhancement is noted in the left qamar-sacrum which is into SI joint (2) Pain Status: Acute Plan: 11/07/16: Pain medication has been placed on hold d/t lethargy. Pt currently rating his pain at a "2". 11/05/16: His pain medication has been increased to 60 MS Contin Q8, and 30 MSIR Q3h. We will give him lactulose x 3 doses to induce a BM. 11/04: continu Oramorph to 60mg PO BID. start MS IR 15mg PO q3 hours for breakthrough. continue IV morphine for severe pain only. 2/28: will start MS contin, continue morphine scheduled while awake and for PRN. --Right-sided back pain radiating to the right hip, probably related to the lumbar lesion or kidney. (3) Atrial fibrillation Status: Chronic Plan: --follows with Dr. Young --On Pradaxa Assessment 71y/o male with urinary bladder cancer h/o Hypertension. Hypercholesterolemia. Squamous cell carcinoma of the skin and melanoma. Urinary bladder cancer diagnosed in April 2016 and recently with recurrent disease. History of kidney stones. gastroesophageal reflux disease. Atrial fibrillation. Plan 1. Continue to hold pain meds due to lethargy. Speech improved today. 2. We will proceed with treatment of metastatic transitional cell carcinoma once the acute issues have resolved. 3. Supportive care. Problem Qualifiers (1) Bladder cancer: Qualified Code: C67.9 - Malignant neoplasm of urinary bladder, unspecified site (2) Atrial fibrillation: Qualified Code: I48.91 - Atrial fibrillation, unspecified type Nan Rivas Nov 07, 2016 10:26 Sunil Arias MD Nov 07, 2016 12:26
--- NOTE | 2016-11-07 10:44 | HHI.FPPN ---
Subjective Remarks No acute events overnight. Pulse was initially elevated around 100s but this has since resolved. Remains on nasal cannula. This morning patient is more responsive but still sleepy. Is able to wake on verbal stimuli. Complaining of generalized pain and weakness. Denies chest pain or abdominal pain. (Glenis Lopez MD R2) Objective Vitals Vital Signs Date Time Temp Pulse Resp B/P Pulse Ox O2 Delivery O2 Flow Rate FiO2 11/07/16 10:00 75 11/07/16 09:12 95 Nasal Cannula 5.00 11/07/16 08:00 72 11/07/16 08:00 98.3 76 20 113/73 95 11/07/16 04:00 98.1 80 20 111/63 96 11/07/16 04:00 80 11/07/16 02:00 82 11/07/16 00:10 96 Nasal Cannula 6.00 11/07/16 00:00 98.5 97 20 111/57 95 11/07/16 00:00 97 11/06/16 22:00 124 11/06/16 21:00 94 Nasal Cannula 4.00 11/06/16 20:00 105 11/06/16 20:00 98.7 105 20 104/79 95 11/06/16 18:00 119 11/06/16 16:00 98.3 116 20 130/63 95 11/06/16 12:10 98.5 97 16 111/76 94 11/06/16 11:47 97 3.00 I/O 11/06/16 11/06/16 11/06/16 11/07/16 11/07/16 11/07/16 07:00 15:00 23:00 07:00 15:00 23:00 Intake Total 591 ml 746 ml Output Total 300 ml 1000 ml 700 ml Balance -300 ml -409 ml 46 ml IV Total 591 ml 746 ml Output Urine Total 300 ml 700 ml 600 ml Gastric Drainage Total 300 ml 100 ml (Glenis Jacobsen MD R2) Result Diagram: 11/07/16 0537 11/07/16 0537 Objective Remarks GEN: Laying in bed in no acute distress. Appropriately responsive to questions but is sleepy but wakes up easily. CV: Regular rate and rhythm without obvious MGR. LUNGS: Clear to auscultation anteriorly. Breathing unlabored on nasal cannula. GI: Soft, with increased distension from prior exams, nontender. Soft BS appreciated. No masses appreciated. EXT: No edema or cyanosis. No calf tenderness. NEURO/PSYCH: Alert and awake. (Glenis Jacobsen MD R2) A/P Assessment and Plan Mr. 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 Discharge Planning Timeline unknown. DW: Dr. Amador (Glenis Jacobsen MD R2) Attending Attestation Patient seen and examined. Case reviewed and discussed with the resident team. Agree with plan of care as discussed with me and documented in the resident note. (Yamilet Amador MD) Problem List: (1) Altered mental status Status: Resolved Plan: Patient with acute episode of altered mental status. [facility] called on 11/06 due to AMS and desaturations to the 80s. Patient remains neurologically intact with no focal deficits. Symptoms of AMS much improved suspect etiology was due to medication overdose from opiates. Critical care consulted 11/06 -Ammonia, TSH, CBC, CMP unremarkable -Respiratory acidosis improved -Avoid any exudative -NG tube in place * Okay to remove after speech evaluation -Urine Legionella and Streptococcus negative Imaging: Head CT: No acute intracranial abnormality CTA: No PE identified. Her consolidation in the left lower lobe with small left pleural effusion. Dilated and fluid-filled esophagus suggesting severe reflux. High risk of aspiration Abdomen pelvis CT: 3.2 x 2.3 cm right renal pelvis mass suspicious for malignancy causing hydronephrosis. Diffusely distended colon without signs of obstruction. Medications: * Zosyn 3/- for possible aspiration pneumonia, will discontinue if everything continues to be negative and improve (2) Metastatic disease Status: Acute Plan: Patient with history of urinary bladder carcinoma on 04/2016 s/p multiple tumor resections presenting with progressing lower back pain. Suspected to be due to metastasis as evidenced by imaging. Oncology consulted: Appreciate recommendations * CT-guided renal biopsy 11/03: Transitional cell carcinoma * Continue to hold pain meds due to lethargy * Proceed with treatment of metastatic transitional cell carcinoma once acute issues have resolved Urology: appreciate recommendations * Metastatic urothelial carcinoma * No indication for right nephrectomy at the present time * Further management per oncology Radiation Oncology: Appreciate recommendations Imaging: * Chest CT: Bilateral pulmonary nodules characteristic of metastatic disease. Right renal mass. No evidence of mediastinal or hilar lymphadenopathy. No evidence of destructive bone lesions. * CT abdomen: Complex masslike enlargement of the upper and mid poles of the right kidney with associated lymphadenopathy. Chronic right hydronephrosis. New right basilar lung nodule characteristic of metastatic disease. Medications: Held due to AMS * Oramorph 60mg Q8H * Morphine 30mg PO Q3H for breakthrough pain 1-8 * Morphine 6mg IV Q6H for extreme pain 9-10 Relevant Imaging from outside facility MRI Impression from [facility] 1. Enhancing interosseous lesion at L2 extending into the right lateral mass; posterior elements and transverse process with surrounding necrotic soft tissue and neuro foramina involvement, impinging on the L2 nerve root, suggestive of metastatic disease until proven otherwise, less likely inflammatory. Secondary enhancing lesion in the sacrum slightly eccentric to the right measures 1.5 cm and a third ill-defined enhancement of the left sacrum adjacent to the sacroiliac joint. Bone scan and screening for occult carcinoma suggested. 2. Disc disease with grade 1 anterolisthesis L4-L5. Combination of disc herniation and facet hypertrophy is present narrowing the neural for him in a impinging on the L5 nerve roots. There is an underlying pars defect. 3. Herniation L5-S1 eccentric to the left. There is left lateral recess narrowing impinging the descending S1 nerve root. There is bilateral foraminal narrowing abutting the L5 nerve root (3) Bladder cancer Status: Chronic Plan: See plan above (4) Atrial fibrillation Status: Chronic Plan: Patient with history of atrial fibrillation seen by Dr. Young. Continue metoprolol 50 mg twice a day Pradaxa 150mg BID for anticoagulation restarted s/p procedure as his urine is clear Monitor urine for continued hematuria (5) Constipation Status: Resolved Plan: Patient complaining of constipation likely due to his pain medication -Continue MiraLAX -Continue milk of magnesia and Dulcolax -Continue fluids to help with constipation (6) Creatinine elevation Status: Resolved Plan: Improved renal function. Per chart review normal creatinine in April 2016 at 1.15. Encourage PO fluids with regular diet Continue monitor (7) Nutrition, metabolism, and development symptoms Status: Acute Plan: Fluids: D5 1/2 NS at 75ml/hr Diet: Per speech recommendations Electrolytes: Mild hyponatremia, continue to monitor GI: Omeprazole daily DVT: FIGUEROA/SCDs, Pradaxa 150mg BID Chronic conditions: * HLD: Continue atorvastatin 20 mg daily * HTN: Continue nifedipine 90 mg twice a day and Metoprolol 50mg twice a day (Glenis Jacobsen MD R2) Problem Qualifiers (1) Bladder cancer: Qualified Code: C67.9 - Malignant neoplasm of urinary bladder, unspecified site (2) Atrial fibrillation: Qualified Code: I48.91 - Atrial fibrillation, unspecified type (3) Constipation: Qualified Code: K59.03 - Drug-induced constipation Glenis Jacobsen MD R2 Nov 07, 2016 10:44 Yamilet Amador MD Nov 11, 2016 15:10 (3) Constipation: Qualified Code: K59.03 - Drug-induced constipation Glenis Jacobsen MD R2 Nov 07, 2016 10:44
[2016-11-07] MEDS ORDERED: BISACODYL 10 MG SUPP PR PRN (11:30)
[2016-11-07] MEDS ORDERED: SODIUM BICARBONATE 8.4% INJ 50 MEQ in SODIUM CHLOR 0.9% 1000 ML INJ 1,000 ML IV SCH (11:30)
[2016-11-07] MEDS ORDERED: SENNOSIDES SYRUP 8.8 MG/5 ML CUP PO SCH (16:00)
[2016-11-07] MEDS ORDERED: SENNOSIDES 8.6 MG TAB PO ONE (16:00)
[2016-11-07] MEDS: ATORVASTATIN 20 MG TAB PO SCH (19:42)
[2016-11-08] VITALS (13 sets, daily range): BP systolic 116–137; BP diastolic 63–78; PULSE 80–114; RESP 16–22; TEMP 97.8–98.3; O2SAT 95–97
[2016-11-08] MEDS: PIPERACIL-TAZO 3.375 GM PREMIX 50 ML IV SCH ×2 (01:48→09:06)
[2016-11-08] MEDS: DEXT 5%-NACL 0.9% 1000 ML INJ 1,000 ML IV SCH ×2 (01:49→09:07)
[2016-11-08] MEDS: RESP: ALBUTEROL 2.5 MG/IPRATROPIUM 0.5 MG NEB (SCH) NEB ×4 (03:48→20:53)
[2016-11-08] MEDS: INSULIN NovoLIN REGULAR SUPPLEMENTAL SCALE SQ SCH ×4 (06:00→18:00)
[2016-11-08 06:39] LABS: AUTOMATED NEUTROPHIL # 5.1 TH/MM3 (1.8-7.7); BASOPHIL % 0.4 % (0.0-2.0); EOSINOPHIL # 0.1 TH/MM3 (0-0.4); EOSINOPHIL % 1.8 % (0.0-4.0); HEMATOCRIT 35.2 % (39.0-51.0); HEMO FLAGS DIFF FINAL; LYMPH % 7.6 % (9.0-44.0); LYMPHOCYTE # 0.5 TH/MM3 (1.0-4.8); MEAN CELL VOLUME 88.5 FL (80.0-100.0); MEAN CORPUSCULAR HEMOGLOBIN 31.2 PG (27.0-34.0); MEAN CORPUSCULAR HGB CONC 35.3 % (32.0-36.0); MONO % 8.9 % (0.0-8.0); NEUT % 81.3 % (16.0-70.0); PLATELET COUNT 210 TH/MM3 (150-450); RED BLOOD COUNT 3.98 MIL/MM3 (4.50-5.90); RED CELL DISTRIBUTION WIDTH 13.5 % (11.6-17.2); WHITE BLOOD COUNT 6.3 TH/MM3 (4.0-11.0)
[2016-11-08 06:56] LABS: BICARBONATE 28.4 MEQ/L (21.0-32.0); POTASSIUM 3.5 MEQ/L (3.5-5.1)
[2016-11-08] MEDS: SODIUM CHLORIDE 0.9% FLUSH 5 ML FLUSH FLUSH SCH ×2 (09:00→19:46)
[2016-11-08] MEDS: MAGNESIUM HYDROXIDE SUSP 30 ML CUP PO SCH ×2 (09:00→19:47)
[2016-11-08] MEDS: POLYETHYLENE GLYCOL 17 GM PKG PO SCH (09:00)
[2016-11-08] MEDS ORDERED: MORPHINE SULFATE 8 MG/ML INJ ONE (09:01)
[2016-11-08] MEDS: METOPROLOL TARTRATE 50 MG TAB PO SCH ×2 (09:05→19:46)
[2016-11-08] MEDS: PANTOPRAZOLE SOD 40 MG DELAYED RELEASE TAB PO SCH (09:05)
[2016-11-08] MEDS: NIFEdipine 90 MG SUSTAINED RELEASE TAB PO SCH ×2 (09:05→19:46)
[2016-11-08] MEDS: DABIGATRAN ETEXILATE 150 MG CAP PO SCH ×2 (09:06→19:46)
[2016-11-08] MEDS ORDERED: MORPHINE SULFATE 4 MG/ML INJ IV PUSH ONE (09:15)
[2016-11-08] MEDS ORDERED: MORPHINE SULFATE 15 MG TAB PO PRN (10:00)
[2016-11-08] MEDS ORDERED: MORPHINE SULFATE 15 MG CONTROLLED RELEASE TAB PO SCH (10:00)
[2016-11-08] MEDS ORDERED: ACETAMINOPHEN/HYDROcodone 325 MG/10 MG TAB PO PRN (10:15)
[2016-11-08] MEDS ORDERED: ACETAMINOPHEN/HYDROcodone 325 MG/5 MG TAB PO PRN (10:15)
--- NOTE | 2016-11-08 10:38 | HHI.FPPN ---
Subjective Remarks Patient seen and examined this morning. No acute events overnight with vital signs stable. Patient's altered mental status seems to have fully resolved, however he still states that he has periodic spells of "haziness" without loss of consciousness. He states that yesterday his pain was tolerable at a 2/10, however this morning has increased to 5-6 out of 10 and is requesting pain medication. Due to his altered mental status likely being related to extended release morphine usage, we discussed our options and will continue to work with hematology oncology for pain control. He states that he is scheduled to begin radiation therapy tonight and is hopeful that it will relieve some of his pain. His constipation has resolved and has had 2 large bowel movements over the last 24 hours. He has no other complaints and denies any fevers, chills, shortness of breath, chest pain, NVD, or calf tenderness. (Dex Burgos MD R1) Objective Vitals Vital Signs Date Time Temp Pulse Resp B/P Pulse Ox O2 Delivery O2 Flow Rate FiO2 11/08/16 06:00 93 11/08/16 04:00 98.0 86 22 121/67 97 11/08/16 04:00 88 11/08/16 02:00 80 11/08/16 00:00 86 11/08/16 00:00 98.0 86 18 137/78 95 11/07/16 22:00 87 11/07/16 20:01 94 Nasal Cannula 4.00 11/07/16 20:00 94 11/07/16 20:00 98.4 94 28 122/65 94 11/07/16 18:00 83 11/07/16 16:00 84 11/07/16 16:00 98.0 88 18 108/76 95 11/07/16 14:00 76 11/07/16 12:00 98.5 78 18 104/59 96 11/07/16 12:00 73 I/O 11/07/16 11/07/16 11/07/16 11/08/16 11/08/16 11/08/16 07:00 15:00 23:00 07:00 15:00 23:00 Intake Total 746 ml 482 ml 1080 ml 795 ml Output Total 700 ml 500 ml 1400 ml 401 ml Balance 46 ml -18 ml -320 ml 394 ml Intake Oral 480 ml 480 ml IV Total 746 ml 482 ml 600 ml 315 ml Output Urine Total 600 ml 500 ml 1400 ml 400 ml Stool Total 1 ml Gastric Drainage Total 100 ml 0 ml # Bowel Movements 1 (Dex Burgos MD R1) Result Diagram: 11/08/1652311/08/16523 Objective Remarks GEN: 71-year-old male lying in bed with at his side in no acute distress. CV: Regular rate and rhythm without obvious MGR. LUNGS: Clear to auscultation anteriorly. Breathing unlabored on nasal cannula. GI: Soft, nontender, mild distention with positive bowel sounds.. No masses appreciated. EXT: No edema or cyanosis. No calf tenderness. NEURO/PSYCH: AAO 3. Normal speech and judgment. Cranial nerves II through XII intact. Patient able to move all extremities. (Dex Burgos MD R1) A/P Assessment and Plan Mr. Ignacio is a 71 y/o with a PMHx of urinary bladder carcinoma presenting with worsening back and body pain secondary to metastasis. Discharge Planning Timeline unknown. DW: Dr. Amador (Dex Burgos MD R1) Attending Attestation Patient seen and examined. Case reviewed and discussed with the resident team. Agree with plan of care as discussed with me and documented in the resident note. (Yamilet Amador MD) Problem List: (1) Altered mental status Status: Resolved Plan: Patient with acute episode of altered mental status. [facility] A[facility] and desaturations to the 80s. Patient remains neurologically intact with no focal deficits. Symptoms of AMS much improved suspect etiology was due to medication overdose from opiates. Critical care consulted 11/06, signed off 11/07 -Ammonia, TSH, CBC, CMP unremarkable -Respiratory acidosis improved -NG tube DC -Urine Legionella and Streptococcus negative -Patient to be transferred back to Oncology floor as he has returned to his baseline Imaging: Head CT: No acute intracranial abnormality CTA: No PE identified. Her consolidation in the left lower lobe with small left pleural effusion. Dilated and fluid-filled esophagus suggesting severe reflux. High risk of aspiration Abdomen pelvis CT: 3.2 x 2.3 cm right renal pelvis mass suspicious for malignancy causing hydronephrosis. Diffusely distended colon without signs of obstruction. Medications: * Zosyn 11/06-11/08 (DC as etiology likely not infectious) (2) Metastatic disease Status: Acute Plan: Patient with history of urinary bladder carcinoma on 04/2016 s/p multiple tumor resections presenting with progressing lower back pain. Suspected to be due to metastasis as evidenced by imaging. Oncology consulted: Appreciate recommendations * CT-guided renal biopsy 11/03: Transitional cell carcinoma * Continue to hold pain meds due to lethargy * Proceed with treatment of metastatic transitional cell carcinoma once acute issues have resolved Urology: appreciate recommendations * Metastatic urothelial carcinoma * No indication for right nephrectomy at the present time * Further management per oncology Radiation Oncology: Appreciate recommendations Imaging: * Chest CT: Bilateral pulmonary nodules characteristic of metastatic disease. Right renal mass. No evidence of mediastinal or hilar lymphadenopathy. No evidence of destructive bone lesions. * CT abdomen: Complex masslike enlargement of the upper and mid poles of the right kidney with associated lymphadenopathy. Chronic right hydronephrosis. New right basilar lung nodule characteristic of metastatic disease. Medications: * Given one time dose of Morphine IV 4mg * Consult with Oncology for further pain medication recommendations as AMS was likely etiology of AMS Relevant Imaging from outside facility MRI Impression from [facility] 1. Enhancing interosseous lesion at L2 extending into the right lateral mass; posterior elements and transverse process with surrounding necrotic soft tissue and neuro foramina involvement, impinging on the L2 nerve root, suggestive of metastatic disease until proven otherwise, less likely inflammatory. Secondary enhancing lesion in the sacrum slightly eccentric to the right measures 1.5 cm and a third ill-defined enhancement of the left sacrum adjacent to the sacroiliac joint. Bone scan and screening for occult carcinoma suggested. 2. Disc disease with grade 1 anterolisthesis L4-L5. Combination of disc herniation and facet hypertrophy is present narrowing the neural for him in a impinging on the L5 nerve roots. There is an underlying pars defect. 3. Herniation L5-S1 eccentric to the left. There is left lateral recess narrowing impinging the descending S1 nerve root. There is bilateral foraminal narrowing abutting the L5 nerve root (3) Bladder cancer Status: Chronic Plan: See plan above (4) Atrial fibrillation Status: Chronic Plan: Patient with history of atrial fibrillation seen by Dr. Young. Continue metoprolol 50 mg twice a day Pradaxa 150mg BID for anticoagulation restarted s/p procedure as his urine is clear Monitor urine for continued hematuria (5) Constipation Status: Resolved Plan: Patient complaining of constipation likely due to his pain medication -Continue MiraLAX -Continue milk of magnesia and Dulcolax -Continue fluids to help with constipation (6) Creatinine elevation Status: Resolved Plan: Improved renal function. Per chart review normal creatinine in April 2016 at 1.15. Encourage PO fluids with regular diet Continue monitor (7) Nutrition, metabolism, and development symptoms Status: Acute Plan: Fluids: D5 1/2 NS at 75ml/hr Diet: Per speech recommendations Electrolytes: Mild hyponatremia, continue to monitor GI: Omeprazole daily DVT: FIGUEROA/SCDs, Pradaxa 150mg BID Chronic conditions: * HLD: Continue atorvastatin 20 mg daily * HTN: Continue nifedipine 90 mg twice a day and Metoprolol 50mg twice a day (Dex Burgos MD R1) Problem List: (1) Altered mental status Status: Resolved Plan: Patient with acute episode of altered mental status. [facility] called on 11/06 due to AMS and desaturations to the 80s. Patient remains neurologically intact with no focal deficits. Symptoms of AMS much improved suspect etiology was due to medication overdose from opiates. Critical care consulted 11/06, signed off 11/07 -Ammonia, TSH, CBC, CMP unremarkable -Respiratory acidosis improved -NG tube DC -Urine Legionella and Streptococcus negative -Patient to be transferred back to Oncology floor as he has returned to his baseline Imaging: Head CT: No acute intracranial abnormality CTA: No PE identified. Her consolidation in the left lower lobe with small left pleural effusion. Dilated and fluid-filled esophagus suggesting severe reflux. High risk of aspiration Abdomen pelvis CT: 3.2 x 2.3 cm right renal pelvis mass suspicious for malignancy causing hydronephrosis. Diffusely distended colon without signs of obstruction. Medications: * Zosyn 11/06-11/08 (DC as etiology likely not infectious) (2) Metastatic disease Status: Acute Plan: Patient with history of urinary bladder carcinoma on 04/2016 s/p multiple tumor resections presenting with progressing lower back pain. Suspected to be due to metastasis as evidenced by imaging. Oncology consulted: Appreciate recommendations * CT-guided renal biopsy 11/03: Transitional cell carcinoma * Continue to hold pain meds due to lethargy * Proceed with treatment of metastatic transitional cell carcinoma once acute issues have resolved Urology: appreciate recommendations * Metastatic urothelial carcinoma * No indication for right nephrectomy at the present time * Further management per oncology Radiation Oncology: Appreciate recommendations Imaging: * Chest CT: Bilateral pulmonary nodules characteristic of metastatic disease. Right renal mass. No evidence of mediastinal or hilar lymphadenopathy. No evidence of destructive bone lesions. * CT abdomen: Complex masslike enlargement of the upper and mid poles of the right kidney with associated lymphadenopathy. Chronic right hydronephrosis. New right basilar lung nodule characteristic of metastatic disease. Medications: * Given one time dose of Morphine IV 4mg * Consult with Oncology for further pain medication recommendations as AMS was likely etiology of AMS Relevant Imaging from outside facility MRI Impression from [facility] 1. Enhancing interosseous lesion at L2 extending into the right lateral mass; posterior elements and transverse process with surrounding necrotic soft tissue and neuro foramina involvement, impinging on the L2 nerve root, suggestive of metastatic disease until proven otherwise, less likely inflammatory. Secondary enhancing lesion in the sacrum slightly eccentric to the right measures 1.5 cm and a third ill-defined enhancement of the left sacrum adjacent to the sacroiliac joint. Bone scan and screening for occult carcinoma suggested. 2. Disc disease with grade 1 anterolisthesis L4-L5. Combination of disc herniation and facet hypertrophy is present narrowing the neural for him in a impinging on the L5 nerve roots. There is an underlying pars defect. 3. Herniation L5-S1 eccentric to the left. There is left lateral recess narrowing impinging the descending S1 nerve root. There is bilateral foraminal narrowing abutting the L5 nerve root (3) Bladder cancer Status: Chronic Plan: See plan above (4) Atrial fibrillation Status: Chronic Plan: Patient with history of atrial fibrillation seen by Dr. Young. Continue metoprolol 50 mg twice a day Pradaxa 150mg BID for anticoagulation restarted s/p procedure as his urine is clear Monitor urine for continued hematuria (5) Constipation Status: Resolved Plan: Patient complaining of constipation likely due to his pain medication -Continue MiraLAX -Continue milk of magnesia and Dulcolax -Continue fluids to help with constipation (6) Creatinine elevation Status: Resolved Plan: Improved renal function. Per chart review normal creatinine in April 2016 at 1.15. Encourage PO fluids with regular diet Continue monitor (7) Nutrition, metabolism, and development symptoms Status: Acute Plan: Fluids: D5 1/2 NS at 75ml/hr Diet: Per speech recommendations Electrolytes: Mild hyponatremia, continue to monitor GI: Omeprazole daily DVT: FIGUEROA/SCDs, Pradaxa 150mg BID Chronic conditions: * HLD: Continue atorvastatin 20 mg daily * HTN: Continue nifedipine 90 mg twice a day and Metoprolol 50mg twice a day (Yamilet Amador MD) Problem Qualifiers (1) Altered mental status: Qualified Code: R40.0 - Somnolence (2) Bladder cancer: Qualified Code: C67.9 - Malignant neoplasm of urinary bladder, unspecified site (3) Atrial fibrillation: Qualified Code: I48.91 - Atrial fibrillation, unspecified type (4) Constipation: Qualified Code: K59.03 - Drug-induced constipation Dex Burgos MD R1 Nov 08, 2016 10:38 Yamilet Amador MD Nov 11, 2016 15:11
--- NOTE | 2016-11-08 11:54 | PD.ONC.PN ---
Subjective Subjective Remarks Afebrile overnight. Patient just received morphine for pain in his back. He is quite lethargic. at bedside. Had 2 BM last night. Objective Data Date Time Temp Pulse Resp B/P Pulse Ox O2 Delivery O2 Flow Rate FiO2 11/08/16 10:00 94 11/08/16 08:00 97.8 92 18 133/63 96 11/08/16 08:00 92 11/08/16 06:00 93 11/08/16 04:00 98.0 86 22 121/67 97 11/08/16 04:00 88 11/08/16 02:00 80 11/08/16 00:00 86 11/08/16 00:00 98.0 86 18 137/78 95 11/07/16 22:00 87 11/07/16 20:01 94 Nasal Cannula 4.00 11/07/16 20:00 94 11/07/16 20:00 98.4 94 28 122/65 94 11/07/16 18:00 83 11/07/16 16:00 84 11/07/16 16:00 98.0 88 18 108/76 95 11/07/16 14:00 76 11/07/16 12:00 98.5 78 18 104/59 96 11/07/16 12:00 73 11/08/16 11/08/16 11/08/16 07:00 15:00 23:00 Intake Total 795 ml Output Total 401 ml Balance 394 ml Result Diagram: 11/08/16 0524 11/08/16 0524 Laboratory Results Laboratory Tests Test 11/08/16 05:24 White Blood Count 6.3 TH/MM3 Red Blood Count 3.98 MIL/MM3 Hemoglobin 12.4 GM/DL Hematocrit 35.2 % Mean Corpuscular Volume 88.5 FL Mean Corpuscular Hemoglobin 31.2 PG Mean Corpuscular Hemoglobin 35.3 % Concent Red Cell Distribution Width 13.5 % Platelet Count 210 TH/MM3 Mean Platelet Volume 7.4 FL Neutrophils (%) (Auto) 81.3 % Lymphocytes (%) (Auto) 7.6 % Monocytes (%) (Auto) 8.9 % Eosinophils (%) (Auto) 1.8 % Basophils (%) (Auto) 0.4 % Neutrophils # (Auto) 5.1 TH/MM3 Lymphocytes # (Auto) 0.5 TH/MM3 Monocytes # (Auto) 0.6 TH/MM3 Eosinophils # (Auto) 0.1 TH/MM3 Basophils # (Auto) 0.0 TH/MM3 CBC Comment DIFF FINAL Differential Comment Sodium Level 136 MEQ/L Potassium Level 3.5 MEQ/L Chloride Level 98 MEQ/L Carbon Dioxide Level 28.4 MEQ/L Anion Gap 10 MEQ/L Blood Urea Nitrogen 17 MG/DL Creatinine 1.44 MG/DL Estimat Glomerular Filtration 48 ML/MIN Rate Random Glucose 145 MG/DL Calcium Level 8.1 MG/DL Phosphorus Level 2.4 MG/DL Magnesium Level 3.0 MG/DL Culture Results Microbiology Date/Time Procedure Status Source Growth 11/06/16 13:10 Urine Culture - Final Complete Urine Clean Catch <10,000 CFU/ML GRAM POSITIVE RANI 11/06/16 13:10 Legionella Antigen - Final Complete Urine Random Urine PRESUMPTIVE NEGATIVE FOR LEGIONELLA P... 11/06/16 13:10 Streptococcus pneumoniae Antigen (M - Final Complete Urine Random Urine PRESUMPTIVE NEGATIVE FOR STREPTOCOCCU... 11/06/16 19:00 Gram Stain - Final Complete Sputum Expectorated Sputum 11/06/16 19:00 Sputum Culture - Final Complete Sputum Expectorated Sputum HEAVY GROWTH NORMAL RESPIRATORY RANI Administered Medications Medications (Trade) Dose Ordered Sig/Blair Route PRN Reason Start Time Stop Time Status Last Admin Dose Admin Atorvastatin Calcium (Lipitor) 20 mg HS PO 11/01/16 21:00 11/07/16 19:42 Metoprolol Tartrate (Lopressor) 50 mg BID PO 11/01/16 21:00 11/08/16 09:05 Nifedipine (Procardia Xl) 90 mg BID PO 11/01/16 21:00 11/08/16 09:05 Pantoprazole Sodium (Protonix) 40 mg DAILY PO 11/02/16 09:00 11/08/16 09:05 IV Flush (NS Flush) 2 ml BID FLUSH 11/01/16 12:00 11/07/16 19:43 Magnesium Hydroxide (Milk Of Magnesia Liq) 30 ml Q12H PO 11/03/16 09:00 11/07/16 19:42 Polyethylene Glycol (Miralax) 17 gm DAILY PO 11/03/16 10:30 11/07/16 09:00 Ondansetron HCl (Zofran Inj) 4 mg Q6HR PRN IV PUSH NAUSEA 11/04/16 13:30 11/06/16 04:08 Promethazine HCl (Phenergan) 25 mg Q6H PRN PO NAUSEA OR VOMITING 11/05/16 00:00 11/06/16 06:02 Dabigatran 150 mg 150 mg BID PO 11/05/16 21:00 11/08/16 09:06 Dextrose/Sodium Chloride 1,000 ml @ 75 mls/hr [id number] IV 11/06/16 17:45 11/08/16 09:07 Sodium Phosphate 30 mmol/Sodium Chloride 250 ml @ 42 mls/hr UNSCH PRN IV For Phosphorus < 2.5 mg/dL 11/07/16 07:30 11/07/16 15:40 Potassium Phosphate/Sodium Chloride (Potassium Phosphate Inj/NS 250 ml Inj) 260 ml @ 42 mls/hr UNSCH PRN IV SEE LABEL COMMENTS 11/07/16 07:30 11/08/16 10:51 Objective Remarks GENERAL: Elderly lethargic male, lying in bed, supine SKIN: Warm and dry. HEAD: Normocephalic. EYES: No injection or drainage. NECK: Supple, trachea midline. CARDIOVASCULAR: Regular rate and rhythm RESPIRATORY: Breath sounds equal bilaterally. No accessory muscle use. GASTROINTESTINAL: Abdomen soft, non-tender, nondistended. EXTREMITIES: No cyanosis NEUROLOGICAL: awake and alert, but lethargic. Assessment/Plan Problem List: (1) Bladder cancer Status: Chronic Plan: 11/08: plan for followup once discharged --Path results show transitional cell carcinoma. History: --had Noninvasive low grade urinary bladder cancer diagnosed in April 2016. --recently had cystoscopy showed multiple new bladder tumors. --s/p transurethral resection of the bladder tumor and the pathology report came back as low grade noninvasive papillary urothelial carcinoma. --MRI lumbar spine showed abnormal signal and marrow infiltrative lesion at L2 to the right of the midline with enhancement extending into the right pedicle and the right transverse process with surrounding soft tissue enhancement extending into the right neural foramina and epidural space. + second rim enhancing lesion measuring 1.5 cm in the right qamar-sacrum noted. Additional ill-defined enhancement is noted in the left qamar-sacrum which is into SI joint (2) Pain Status: Acute Plan: 11/08/16: long acting pain medications stopped. [place] 5/325 and 10/325 written for pain scale 1-8, and 9-10, respectively 11/07/16: Pain medication has been placed on hold d/t lethargy. Pt currently rating his pain at a "2". 11/05/16: His pain medication has been increased to 60 MS Contin Q8, and 30 MSIR Q3h. We will give him lactulose x 3 doses to induce a BM. 11/04: continu Oramorph to 60mg PO BID. start MS IR 15mg PO q3 hours for breakthrough. continue IV morphine for severe pain only. 11/02: will start MS contin, continue morphine scheduled while awake and for PRN. --Right-sided back pain radiating to the right hip, probably related to the lumbar lesion or kidney. (3) Atrial fibrillation Status: Chronic Plan: --follows with Dr. Young --On Pradaxa Assessment 71y/o male with urinary bladder cancer h/o Hypertension. Hypercholesterolemia. Squamous cell carcinoma of the skin and melanoma. Urinary bladder cancer diagnosed in April 2016 and recently with recurrent disease. History of kidney stones. gastroesophageal reflux disease. Atrial fibrillation. Attending Statement awake and alert. had BM today More pain after lying on the table for radiation. had first XRT today. continue pain meds. d/w pt and D/W RN The exam, history, and the medical decision-making described in the above note were completed with the assistance of the mid-level provider. I reviewed and agree with the findings presented. I attest that I had a [id number] encounter with the patient on the same day, and personally performed and documented my assessment and findings in the medical record. Problem Qualifiers (1) Bladder cancer: Qualified Code: C67.9 - Malignant neoplasm of urinary bladder, unspecified site (2) Atrial fibrillation: Qualified Code: I48.91 - Atrial fibrillation, unspecified type Coleen Smith Nov 08, 2016 11:54 Obi Warner MD Nov 09, 2016 11:39
--- NOTE | 2016-11-08 14:53 | EKG ---
Date Performed: 11/01/2016 Time Performed: 14:06:30 PTAGE: 71 years EKG: ATRIAL FIBRILLATION ABNORMAL RHYTHM ECG Compared to prior tracing no significant change PREVIOUS TRACING : 05/01/2016 14.09 DOCTOR: Enrike Olivo Interpretating Date/Time 11/08/2016 14:51:42
[2016-11-08] MEDS ORDERED: MORPHINE SULFATE 4 MG/ML INJ IV PUSH PRN (15:30)
[2016-11-08] MEDS ORDERED: ACETAMINOPHEN/HYDROcodone 325 MG/5 MG TAB PO ONE (15:30)
--- NOTE | 2016-11-08 18:12 | PD.ONC.PN ---
Objective Data Date Time Temp Pulse Resp B/P Pulse Ox O2 Delivery O2 Flow Rate FiO2 11/08/16 16:00 83 11/08/16 16:00 97.8 82 17 123/74 96 11/08/16 14:00 82 11/08/16 12:00 98.3 88 16 116/78 95 11/08/16 12:00 90 11/08/16 10:00 94 11/08/16 08:00 97.8 92 18 133/63 96 11/08/16 08:00 92 11/08/16 06:00 93 11/08/16 04:00 98.0 86 22 121/67 97 11/08/16 04:00 88 11/08/16 02:00 80 11/08/16 00:00 86 11/08/16 00:00 98.0 86 18 137/78 95 11/07/16 22:00 87 11/07/16 20:01 94 Nasal Cannula 4.00 11/07/16 20:00 94 11/07/16 20:00 98.4 94 28 122/65 94 11/08/16 11/08/16 11/08/16 07:00 15:00 23:00 Intake Total 795 ml 1038 ml Output Total 401 ml 1100 ml Balance 394 ml -62 ml Result Diagram: 11/08/1652311/08/16523 Laboratory Results Laboratory Tests Test 11/08/16 05:24 White Blood Count 6.3 TH/MM3 Red Blood Count 3.98 MIL/MM3 Hemoglobin 12.4 GM/DL Hematocrit 35.2 % Mean Corpuscular Volume 88.5 FL Mean Corpuscular Hemoglobin 31.2 PG Mean Corpuscular Hemoglobin 35.3 % Concent Red Cell Distribution Width 13.5 % Platelet Count 210 TH/MM3 Mean Platelet Volume 7.4 FL Neutrophils (%) (Auto) 81.3 % Lymphocytes (%) (Auto) 7.6 % Monocytes (%) (Auto) 8.9 % Eosinophils (%) (Auto) 1.8 % Basophils (%) (Auto) 0.4 % Neutrophils # (Auto) 5.1 TH/MM3 Lymphocytes # (Auto) 0.5 TH/MM3 Monocytes # (Auto) 0.6 TH/MM3 Eosinophils # (Auto) 0.1 TH/MM3 Basophils # (Auto) 0.0 TH/MM3 CBC Comment DIFF FINAL Differential Comment Sodium Level 136 MEQ/L Potassium Level 3.5 MEQ/L Chloride Level 98 MEQ/L Carbon Dioxide Level 28.4 MEQ/L Anion Gap 10 MEQ/L Blood Urea Nitrogen 17 MG/DL Creatinine 1.44 MG/DL Estimat Glomerular Filtration 48 ML/MIN Rate Random Glucose 145 MG/DL Calcium Level 8.1 MG/DL Phosphorus Level 2.4 MG/DL Magnesium Level 3.0 MG/DL Culture Results Microbiology Date/Time Procedure Status Source Growth 11/06/16 13:10 Urine Culture - Final Complete Urine Clean Catch <10,000 CFU/ML GRAM POSITIVE RANI 11/06/16 13:10 Legionella Antigen - Final Complete Urine Random Urine PRESUMPTIVE NEGATIVE FOR LEGIONELLA P... 11/06/16 13:10 Streptococcus pneumoniae Antigen (M - Final Complete Urine Random Urine PRESUMPTIVE NEGATIVE FOR STREPTOCOCCU... 11/06/16 19:00 Gram Stain - Final Complete Sputum Expectorated Sputum 11/06/16 19:00 Sputum Culture - Final Complete Sputum Expectorated Sputum HEAVY GROWTH NORMAL RESPIRATORY RANI Administered Medications Medications (Trade) Dose Ordered Sig/Blair Route PRN Reason Start Time Stop Time Status Last Admin Dose Admin Atorvastatin Calcium (Lipitor) 20 mg HS PO 11/01/16 21:00 11/07/16 19:42 Metoprolol Tartrate (Lopressor) 50 mg BID PO 11/01/16 21:00 11/08/16 09:05 Nifedipine (Procardia Xl) 90 mg BID PO 11/01/16 21:00 11/08/16 09:05 Pantoprazole Sodium (Protonix) 40 mg DAILY PO 11/02/16 09:00 11/08/16 09:05 IV Flush (NS Flush) 2 ml BID FLUSH 11/01/16 12:00 11/07/16 19:43 Magnesium Hydroxide (Milk Of Magnesia Liq) 30 ml Q12H PO 11/03/16 09:00 11/07/16 19:42 Polyethylene Glycol (Miralax) 17 gm DAILY PO 11/03/16 10:30 11/07/16 09:00 Ondansetron HCl (Zofran Inj) 4 mg Q6HR PRN IV PUSH NAUSEA 11/04/16 13:30 11/06/16 04:08 Promethazine HCl (Phenergan) 25 mg Q6H PRN PO NAUSEA OR VOMITING 11/05/16 00:00 11/06/16 06:02 Dabigatran 150 mg 150 mg BID PO 11/05/16 21:00 11/08/16 09:06 Dextrose/Sodium Chloride (D5W-NS 1000 ml Inj) 1,000 ml @ 75 mls/hr [id number] IV 11/06/16 17:45 11/08/16 09:07 Insulin Human Regular 1 1 Q6HR SQ 11/06/16 18:00 11/08/16 12:00 Sodium Phosphate 30 mmol/Sodium Chloride 250 ml @ 42 mls/hr UNSCH PRN IV For Phosphorus < 2.5 mg/dL 11/07/16 07:30 11/07/16 15:40 Potassium Phosphate/Sodium Chloride (Potassium Phosphate Inj/NS 250 ml Inj) 260 ml @ 42 mls/hr UNSCH PRN IV SEE LABEL COMMENTS 11/07/16 07:30 11/08/16 10:51 Objective Remarks GENERAL: Well-nourished, well-developed patient. SKIN: Warm and dry. HEAD: Normocephalic. EYES: No scleral icterus. No injection or drainage. NECK: Supple, trachea midline. No JVD or lymphadenopathy. LYMPHATIC: No adenopathy. CARDIOVASCULAR: Regular rate and rhythm without murmurs. RESPIRATORY: Breath sounds equal bilaterally. No accessory muscle use. GASTROINTESTINAL: Abdomen soft, non-tender, nondistended. EXTREMITIES: No cyanosis, or edema. MUSCULOSKELETAL: Adequate muscle tone. NEUROLOGICAL: No obvious focal deficit. Awake, alert, and oriented x3. PSYCHIATRIC: Appropriate mood and affect; insight and judgment normal. Assessment/Plan Problem List: (1) Bladder cancer Status: Chronic Plan: 11/08: plan for followup once discharged --Path results show transitional cell carcinoma. History: --had Noninvasive low grade urinary bladder cancer diagnosed in April 2016. --recently had cystoscopy showed multiple new bladder tumors. --s/p transurethral resection of the bladder tumor and the pathology report came back as low grade noninvasive papillary urothelial carcinoma. --MRI lumbar spine showed abnormal signal and marrow infiltrative lesion at L2 to the right of the midline with enhancement extending into the right pedicle and the right transverse process with surrounding soft tissue enhancement extending into the right neural foramina and epidural space. + second rim enhancing lesion measuring 1.5 cm in the right qamar-sacrum noted. Additional ill-defined enhancement is noted in the left qamar-sacrum which is into SI joint (2) Pain Status: Acute Plan: 11/08/16: long acting pain medications stopped. [place] 5/325 and 10/325 written for pain scale 1-8, and 9-10, respectively 11/07/16: Pain medication has been placed on hold d/t lethargy. Pt currently rating his pain at a "2". 11/05/16: His pain medication has been increased to 60 MS Contin Q8, and 30 MSIR Q3h. We will give him lactulose x 3 doses to induce a BM. 11/04: continu Oramorph to 60mg PO BID. start MS IR 15mg PO q3 hours for breakthrough. continue IV morphine for severe pain only. 11/02: will start MS contin, continue morphine scheduled while awake and for PRN. --Right-sided back pain radiating to the right hip, probably related to the lumbar lesion or kidney. (3) Atrial fibrillation Status: Chronic Plan: --follows with Dr. Young --On Pradaxa Assessment 71y/o male with urinary bladder cancer h/o Hypertension. Hypercholesterolemia. Squamous cell carcinoma of the skin and melanoma. Urinary bladder cancer diagnosed in April 2016 and recently with recurrent disease. History of kidney stones. gastroesophageal reflux disease. Atrial fibrillation. Attending Statement awake and alert. had BM today More pain after lying on the table for radiation. had first XRT today. continue pain meds. d/w pt and D/W RN The exam, history, and the medical decision-making described in the above note were completed with the assistance of the mid-level provider. I reviewed and agree with the findings presented. I attest that I had a [id number] encounter with the patient on the same day, and personally performed and documented my assessment and findings in the medical record. Problem Qualifiers (1) Bladder cancer: Qualified Code: C67.9 - Malignant neoplasm of urinary bladder, unspecified site (2) Atrial fibrillation: Qualified Code: I48.91 - Atrial fibrillation, unspecified type Obi Warner MD Nov 08, 2016 18:12
[2016-11-08] MEDS: ACETAMINOPHEN/HYDROcodone 325 MG/5 MG TAB PO PRN (19:45)
[2016-11-08] MEDS: ATORVASTATIN 20 MG TAB PO SCH (19:46)
[2016-11-08] MEDS: ACETAMINOPHEN/HYDROcodone 325 MG/10 MG TAB PO PRN (20:46)
[2016-11-09] VITALS (9 sets, daily range): BP systolic 106–131; BP diastolic 64–80; PULSE 80–100; RESP 14–24; TEMP 96.7–98.5; O2SAT 96–98
[2016-11-09] MEDS: ACETAMINOPHEN/HYDROcodone 325 MG/10 MG TAB PO PRN ×3 (00:09→07:06)
[2016-11-09] MEDS: ONDANSETRON HCL 4 MG/2 ML VIAL IV PUSH PRN ×4 (00:53→15:31)
[2016-11-09] MEDS: RESP: ALBUTEROL 2.5 MG/IPRATROPIUM 0.5 MG NEB (SCH) NEB ×3 (04:00→22:00)
[2016-11-09] MEDS: INSULIN NovoLIN REGULAR SUPPLEMENTAL SCALE SQ SCH ×5 (06:00→23:07)
[2016-11-09 07:00] LABS: BICARBONATE 29.6 MEQ/L (21.0-32.0); POTASSIUM 3.5 MEQ/L (3.5-5.1)
--- NOTE | 2016-11-09 08:43 | HHI.FPPN ---
Subjective Remarks No acute events overnight. Vital signs unremarkable. This morning patient reports feeling depressed and continues to have right hip pain that radiates down his leg. Pain medication is helping but not lasting for more than 2 hours without the use of IV pain medication. In relation to his lethargy, this is much improved. (Glenis Jacobsen MD R2) Objective Vitals Vital Signs Date Time Temp Pulse Resp B/P Pulse Ox O2 Delivery O2 Flow Rate FiO2 11/09/16 06:00 88 11/09/16 04:00 85 11/09/16 04:00 98.3 85 14 121/67 97 11/09/16 02:00 80 11/09/16 00:00 92 11/09/16 00:00 98.5 92 24 111/80 96 11/08/16 22:00 84 11/08/16 21:00 98.0 94 19 132/68 97 11/08/16 21:00 97 21 11/08/16 20:00 114 11/08/16 18:00 96 11/08/16 16:00 83 11/08/16 16:00 97.8 82 17 123/74 96 11/08/16 14:00 82 11/08/16 12:00 98.3 88 16 116/78 95 11/08/16 12:00 90 11/08/16 10:00 94 I/O 11/08/16 11/08/16 11/08/16 11/09/16 11/09/16 11/09/16 07:00 15:00 23:00 07:00 15:00 23:00 Intake Total 795 ml 1038 ml 480 ml 240 ml Output Total 401 ml 1100 ml 400 ml 1200 ml Balance 394 ml -62 ml 80 ml -960 ml Intake Oral 480 ml 600 ml 480 ml 240 ml IV Total 315 ml 438 ml 0 ml 0 ml Output Urine Total 400 ml 1100 ml 400 ml 1200 ml Stool Total 1 ml # Bowel Movements 0 1 (Glenis Jacobsen MD R2) Result Diagram: 11/08/16 0524 11/09/16 0608 Objective Remarks GEN: Lying in bed with at his side in no acute distress. CV: Regular rate and rhythm without obvious MGR. LUNGS: Clear to auscultation bilaterally. No wheezes, crackles, rubs. No accessory muscle use. On room air. GI: Soft, nontender, mild distention with positive bowel sounds.. No masses appreciated. EXT: No edema or cyanosis. No calf tenderness. NEURO/PSYCH: AAO 3. Normal speech and judgment. Patient able to move all extremities. (Glenis Jacobsen MD R2) A/P Assessment and Plan Mr. Ignacio is a 71 y/o with a PMHx of urinary bladder carcinoma presenting with worsening back and body pain secondary to metastasis. Discharge Planning 1-3 days pending pain control WDW: Dr. Amador and Dr. Burgos (Glenis Jacobsen MD R2) Attending Attestation Patient seen and examined. Case reviewed and discussed with the resident team. Agree with plan of care as discussed with me and documented in the resident note. (Yamilet Amador MD) Problem List: (1) Metastatic disease Status: Acute Plan: Patient with history of urinary bladder carcinoma on 04/2016 s/p multiple tumor resections presenting with progressing lower back pain. Suspected to be due to metastasis as evidenced by imaging. Oncology consulted: Appreciate recommendations * CT-guided renal biopsy 11/03: Transitional cell carcinoma * Radiation treatment 11/08 * Stopped long-acting pain medication Urology: appreciate recommendations. Signed off. Radiation Oncology: Appreciate recommendations Imaging: * Chest CT: Bilateral pulmonary nodules characteristic of metastatic disease. Right renal mass. No evidence of mediastinal or hilar lymphadenopathy. No evidence of destructive bone lesions. * CT abdomen: Complex masslike enlargement of the upper and mid poles of the right kidney with associated lymphadenopathy. Chronic right hydronephrosis. New right basilar lung nodule characteristic of metastatic disease. Medications: * [place] 5/325 and 10/325 written for pain scale 1-8, and 9-10, respectively * Morphine 2MG IV q3hr * NO LONG ACTING PAIN MEDICATIONS (2) Depression (emotion) Status: Acute Plan: Symptoms of depression due to the diagnosis of cancer. No suicidal ideation. -Discussed the benefits of Cymbalta to help with both chronic pain and mood. Patient and would like to think about it before starting. (3) Altered mental status Status: Resolved Plan: Patient with acute episode of altered mental status. Halicat called on 11/06 due to AMS and desaturations to the 80s. Patient remains neurologically intact with no focal deficits. Symptoms of AMS much improved suspect etiology was due to medication overdose from opiates. Critical care consulted 11/06, signed off 11/07 -Ammonia, TSH, CBC, CMP unremarkable -Respiratory acidosis improved -Urine Legionella and Streptococcus negative -Patient to be transferred back to Oncology floor as he has returned to his baseline Imaging: Head CT: No acute intracranial abnormality CTA: No PE identified. Her consolidation in the left lower lobe with small left pleural effusion. Dilated and fluid-filled esophagus suggesting severe reflux. High risk of aspiration Abdomen pelvis CT: 3.2 x 2.3 cm right renal pelvis mass suspicious for malignancy causing hydronephrosis. Diffusely distended colon without signs of obstruction. Medications: * Zosyn 11/06-11/08 (DC as etiology likely not infectious) (4) Atrial fibrillation Status: Chronic Plan: Patient with history of atrial fibrillation seen by Dr. Young. Continue metoprolol 50 mg twice a day Pradaxa 150mg BID for anticoagulation restarted s/p procedure as his urine is clear Monitor urine for continued hematuria (5) Constipation Status: Resolved Plan: Constipation has resolved. Likely due to his pain medication -Continue MiraLAX -Continue milk of magnesia and Dulcolax -Continue fluids to help with constipation (6) Creatinine elevation Status: Resolved Plan: Improved renal function. Per chart review normal creatinine in April 2016 at 1.15. Encourage PO fluids with regular diet Continue monitor (7) Nutrition, metabolism, and development symptoms Status: Acute Plan: Fluids: None Diet: Per speech recommendations Electrolytes: Unremarkable, continue to monitor GI: Omeprazole daily DVT: FIGUEROA/SCDs, Pradaxa 150mg BID Chronic conditions: * HLD: Continue atorvastatin 20 mg daily * HTN: Continue nifedipine 90 mg twice a day and Metoprolol 50mg twice a day (Glenis Jacobsen MD R2) Problem Qualifiers (1) Altered mental status: Qualified Code: R40.0 - Somnolence (2) Atrial fibrillation: Qualified Code: I48.91 - Atrial fibrillation, unspecified type (3) Constipation: Qualified Code: K59.03 - Drug-induced constipation Glenis Jacobsen MD R2 Nov 09, 2016 08:43 Yamilet Amador MD Nov 11, 2016 15:12
[2016-11-09] MEDS: SODIUM CHLORIDE 0.9% FLUSH 5 ML FLUSH FLUSH SCH ×2 (08:48→20:10)
[2016-11-09] MEDS: NIFEdipine 90 MG SUSTAINED RELEASE TAB PO SCH ×2 (08:49→22:59)
[2016-11-09] MEDS: PANTOPRAZOLE SOD 40 MG DELAYED RELEASE TAB PO SCH (08:49)
[2016-11-09] MEDS: POLYETHYLENE GLYCOL 17 GM PKG PO SCH (08:49)
[2016-11-09] MEDS: MAGNESIUM HYDROXIDE SUSP 30 ML CUP PO SCH ×2 (08:49→20:11)
[2016-11-09] MEDS: METOPROLOL TARTRATE 50 MG TAB PO SCH ×2 (08:49→20:08)
[2016-11-09] MEDS: DABIGATRAN ETEXILATE 150 MG CAP PO SCH ×2 (08:49→20:08)
[2016-11-09 09:24] LABS: AUTOMATED NEUTROPHIL # 4.6 TH/MM3 (1.8-7.7); BASOPHIL % 0.3 % (0.0-2.0); EOSINOPHIL # 0.1 TH/MM3 (0-0.4); EOSINOPHIL % 1.9 % (0.0-4.0); HEMATOCRIT 35.6 % (39.0-51.0); HEMO FLAGS DIFF FINAL; LYMPHOCYTE # 0.7 TH/MM3 (1.0-4.8); MEAN CORPUSCULAR HEMOGLOBIN 30.9 PG (27.0-34.0); MEAN CORPUSCULAR HGB CONC 34.3 % (32.0-36.0); MONO % 11.1 % (0.0-8.0); NEUT % 75.7 % (16.0-70.0); PLATELET COUNT 179 TH/MM3 (150-450); RED BLOOD COUNT 3.96 MIL/MM3 (4.50-5.90); RED CELL DISTRIBUTION WIDTH 13.8 % (11.6-17.2); WHITE BLOOD COUNT 6.1 TH/MM3 (4.0-11.0)
[2016-11-09] MEDS: ACETAMINOPHEN/HYDROcodone 325 MG/5 MG TAB PO PRN (09:27)
--- NOTE | 2016-11-09 10:54 | PD.ONC.PN ---
Subjective Subjective Remarks Afebrile overnight. Patient states he continues to have pain in his back and hips. He states the Lortab helps the pain, but it returns after 2 hours. Objective Data Date Time Temp Pulse Resp B/P Pulse Ox O2 Delivery O2 Flow Rate FiO2 11/09/16 08:48 14 11/09/16 08:00 99 11/09/16 08:00 98.5 99 20 128/70 97 11/09/16 06:00 88 11/09/16 04:00 85 11/09/16 04:00 98.3 85 14 121/67 97 11/09/16 02:00 80 11/09/16 00:00 92 11/09/16 00:00 98.5 92 24 111/80 96 11/08/16 22:00 84 11/08/16 21:00 98.0 94 19 132/68 97 11/08/16 21:00 97 21 11/08/16 20:00 114 11/08/16 18:00 96 11/08/16 16:00 83 11/08/16 16:00 97.8 82 17 123/74 96 11/08/16 14:00 82 11/08/16 12:00 98.3 88 16 116/78 95 11/08/16 12:00 90 11/09/16 11/09/16 11/09/16 07:00 15:00 23:00 Intake Total 240 ml Output Total 1200 ml Balance -960 ml Result Diagram: 11/09/16 0855 11/09/16 0608 Laboratory Results Laboratory Tests Test 11/09/16 11/09/16 06:08 08:55 Sodium Level 140 MEQ/L Potassium Level 3.5 MEQ/L Chloride Level 103 MEQ/L Carbon Dioxide Level 29.6 MEQ/L Anion Gap 7 MEQ/L Blood Urea Nitrogen 10 MG/DL Creatinine 1.12 MG/DL Estimat Glomerular Filtration 65 ML/MIN Rate Random Glucose 108 MG/DL Calcium Level 8.3 MG/DL White Blood Count 6.1 TH/MM3 Red Blood Count 3.96 MIL/MM3 Hemoglobin 12.2 GM/DL Hematocrit 35.6 % Mean Corpuscular Volume 90.0 FL Mean Corpuscular Hemoglobin 30.9 PG Mean Corpuscular Hemoglobin 34.3 % Concent Red Cell Distribution Width 13.8 % Platelet Count 179 TH/MM3 Mean Platelet Volume 6.5 FL Neutrophils (%) (Auto) 75.7 % Lymphocytes (%) (Auto) 11.0 % Monocytes (%) (Auto) 11.1 % Eosinophils (%) (Auto) 1.9 % Basophils (%) (Auto) 0.3 % Neutrophils # (Auto) 4.6 TH/MM3 Lymphocytes # (Auto) 0.7 TH/MM3 Monocytes # (Auto) 0.7 TH/MM3 Eosinophils # (Auto) 0.1 TH/MM3 Basophils # (Auto) 0.0 TH/MM3 CBC Comment DIFF FINAL Differential Comment Culture Results Microbiology Date/Time Procedure Status Source Growth 11/06/16 13:10 Urine Culture - Final Complete Urine Clean Catch <10,000 CFU/ML GRAM POSITIVE RANI 11/06/16 13:10 Legionella Antigen - Final Complete Urine Random Urine PRESUMPTIVE NEGATIVE FOR LEGIONELLA P... 11/06/16 13:10 Streptococcus pneumoniae Antigen (M - Final Complete Urine Random Urine PRESUMPTIVE NEGATIVE FOR STREPTOCOCCU... 11/06/16 19:00 Gram Stain - Final Complete Sputum Expectorated Sputum 11/06/16 19:00 Sputum Culture - Final Complete Sputum Expectorated Sputum HEAVY GROWTH NORMAL RESPIRATORY RANI Administered Medications Medications (Trade) Dose Ordered Sig/Blair Route PRN Reason Start Time Stop Time Status Last Admin Dose Admin Atorvastatin Calcium (Lipitor) 20 mg HS PO 11/01/16 21:00 11/08/16 19:46 Metoprolol Tartrate (Lopressor) 50 mg BID PO 11/01/16 21:00 11/09/16 08:49 Nifedipine (Procardia Xl) 90 mg BID PO 11/01/16 21:00 11/09/16 08:49 Pantoprazole Sodium (Protonix) 40 mg DAILY PO 11/02/16 09:00 11/09/16 08:49 IV Flush (NS Flush) 2 ml BID FLUSH 11/01/16 12:00 11/09/16 08:48 Magnesium Hydroxide (Milk Of Magnesia Liq) 30 ml Q12H PO 11/03/16 09:00 11/07/16 19:42 Polyethylene Glycol (Miralax) 17 gm DAILY PO 11/03/16 10:30 11/07/16 09:00 Ondansetron HCl (Zofran Inj) 4 mg Q6HR PRN IV PUSH NAUSEA 11/04/16 13:30 11/09/16 09:27 Promethazine HCl (Phenergan) 25 mg Q6H PRN PO NAUSEA OR VOMITING 11/05/16 00:00 11/06/16 06:02 Dabigatran (Pradaxa) 150 mg BID PO 11/05/16 21:00 11/09/16 08:49 Insulin Human Regular (NovoLIN R SUPPLEMENTAL SCALE) 1 Q6HR SQ 11/06/16 18:00 11/08/16 12:00 Acetaminophen/ Hydrocodone Bitart (Delaplane 10-325 Mg) 1 tab Q3HR PRN PO pain9-10 11/08/16 17:00 11/09/16 11:00 11/09/16 07:06 Objective Remarks GENERAL: Elderly male, sitting up in bed in nad. SKIN: Warm and dry. HEAD: Normocephalic. EYES: No injection or drainage. NECK: Supple, trachea midline. CARDIOVASCULAR: Regular rate and rhythm RESPIRATORY: Breath sounds equal bilaterally. No accessory muscle use. GASTROINTESTINAL: Abdomen soft, non-tender, nondistended. EXTREMITIES: No cyanosis NEUROLOGICAL: awake and alert, normal speech. Assessment/Plan Problem List: (1) Bladder cancer Status: Chronic Plan: 11/09: XRT started yesterday. will continue today --Path results show transitional cell carcinoma. History: --had Noninvasive low grade urinary bladder cancer diagnosed in April 2016. --recently had cystoscopy showed multiple new bladder tumors. --s/p transurethral resection of the bladder tumor and the pathology report came back as low grade noninvasive papillary urothelial carcinoma. --MRI lumbar spine showed abnormal signal and marrow infiltrative lesion at L2 to the right of the midline with enhancement extending into the right pedicle and the right transverse process with surrounding soft tissue enhancement extending into the right neural foramina and epidural space. + second rim enhancing lesion measuring 1.5 cm in the right qamar-sacrum noted. Additional ill-defined enhancement is noted in the left qamar-sacrum which is into SI joint (2) Pain Status: Acute Plan: 11/09/16: will start dilaudid 1mg PO q 2 hours, and continue morphine 2mg IV for severe breakthrough pain. 11/08/16: long acting pain medications stopped. [place] 5/325 and 10/325 written for pain scale 1-8, and 9-10, respectively 11/07/16: Pain medication has been placed on hold d/t lethargy. Pt currently rating his pain at a "2". 11/05/16: His pain medication has been increased to 60 MS Contin Q8, and 30 MSIR Q3h. We will give him lactulose x 3 doses to induce a BM. 11/04: continu Oramorph to 60mg PO BID. start MS IR 15mg PO q3 hours for breakthrough. continue IV morphine for severe pain only. 11/02: will start MS contin, continue morphine scheduled while awake and for PRN. --Right-sided back pain radiating to the right hip, probably related to the lumbar lesion or kidney. (3) Atrial fibrillation Status: Chronic Plan: --follows with Dr. Young --On Pradaxa Assessment 71y/o male with urinary bladder cancer h/o Hypertension. Hypercholesterolemia. Squamous cell carcinoma of the skin and melanoma. Urinary bladder cancer diagnosed in April 2016 and recently with recurrent disease. History of kidney stones. gastroesophageal reflux disease. Atrial fibrillation. Attending Statement c/o back pain change lortab to dilaudid continue XRT The exam, history, and the medical decision-making described in the above note were completed with the assistance of the mid-level provider. I reviewed and agree with the findings presented. I attest that I had a [id number] encounter with the patient on the same day, and personally performed and documented my assessment and findings in the medical record. Problem Qualifiers (1) Bladder cancer: Qualified Code: C67.9 - Malignant neoplasm of urinary bladder, unspecified site (2) Atrial fibrillation: Qualified Code: I48.91 - Atrial fibrillation, unspecified type Coleen Smith Nov 09, 2016 10:53 Obi Warner MD Nov 09, 2016 22:28
[2016-11-09] MEDS: MORPHINE SULFATE 4 MG/ML INJ IV PUSH PRN ×3 (11:11→21:18)
[2016-11-09] MEDS ORDERED: ACETAMINOPHEN/HYDROcodone 325 MG/10 MG TAB PO SCH (12:00)
[2016-11-09] MEDS ORDERED: PILL SPLITTER OTHER PRN (14:45)
[2016-11-09] MEDS: HYDROmorphone HCL 2 MG TAB PO PRN ×4 (16:09→23:01)
[2016-11-09] MEDS: ATORVASTATIN 20 MG TAB PO SCH (20:08)
[2016-11-10] VITALS (8 sets, daily range): BP systolic 112–132; BP diastolic 67–83; PULSE 77–103; RESP 18–20; TEMP 97.6–98.5; O2SAT 92–98
[2016-11-10] MEDS: MORPHINE SULFATE 4 MG/ML INJ IV PUSH PRN ×5 (00:10→11:00)
[2016-11-10] MEDS: RESP: ALBUTEROL 2.5 MG/IPRATROPIUM 0.5 MG NEB (SCH) NEB ×3 (04:00→15:07)
[2016-11-10] MEDS: HYDROmorphone HCL 2 MG TAB PO PRN ×6 (04:50→23:05)
[2016-11-10] MEDS: INSULIN NovoLIN REGULAR SUPPLEMENTAL SCALE SQ SCH ×4 (06:00→23:09)
[2016-11-10] MEDS: NIFEdipine 90 MG SUSTAINED RELEASE TAB PO SCH ×2 (08:19→20:09)
[2016-11-10] MEDS: METOPROLOL TARTRATE 50 MG TAB PO SCH ×2 (08:19→20:09)
[2016-11-10] MEDS: DABIGATRAN ETEXILATE 150 MG CAP PO SCH ×2 (08:20→20:09)
[2016-11-10] MEDS: POLYETHYLENE GLYCOL 17 GM PKG PO SCH (08:20)
[2016-11-10] MEDS: PANTOPRAZOLE SOD 40 MG DELAYED RELEASE TAB PO SCH (08:20)
[2016-11-10] MEDS: MAGNESIUM HYDROXIDE SUSP 30 ML CUP PO SCH ×2 (08:20→20:09)
[2016-11-10] MEDS: SODIUM CHLORIDE 0.9% FLUSH 5 ML FLUSH FLUSH SCH ×2 (08:21→20:09)
[2016-11-10] MEDS: ONDANSETRON HCL 4 MG/2 ML VIAL IV PUSH PRN ×2 (08:30→21:17)
--- NOTE | 2016-11-10 11:13 | PD.ONC.PN ---
Subjective Subjective Remarks Afebrile overnight. Pt resting in bed with at bedside. He is c/o some back pain but is being medicated. He is asking about what pain medications he would be going home with. Objective Data Date Time Temp Pulse Resp B/P Pulse Ox O2 Delivery O2 Flow Rate FiO2 11/10/16 08:00 97.6 103 20 129/81 96 11/10/16 04:00 98.5 97 18 123/67 98 11/10/16 00:00 97.8 94 18 132/83 94 11/09/16 20:00 98.0 100 16 131/69 98 11/09/16 16:00 96.9 96 20 110/65 98 11/09/16 12:00 96.7 95 16 106/64 97 11/09/16 11:41 14 11/10/16 11/10/16 11/10/16 07:00 15:00 23:00 Intake Total 240 ml Output Total 600 ml Balance -360 ml Result Diagram: 11/09/16 0855 11/09/16 0608 Administered Medications Medications (Trade) Dose Ordered Sig/Blair Route PRN Reason Start Time Stop Time Status Last Admin Dose Admin Atorvastatin Calcium (Lipitor) 20 mg HS PO 11/01/16 21:00 11/09/16 20:08 Metoprolol Tartrate (Lopressor) 50 mg BID PO 11/01/16 21:00 11/10/16 08:19 Nifedipine (Procardia Xl) 90 mg BID PO 11/01/16 21:00 11/10/16 08:19 Pantoprazole Sodium (Protonix) 40 mg DAILY PO 11/02/16 09:00 11/10/16 08:20 IV Flush (NS Flush) 2 ml BID FLUSH 11/01/16 12:00 11/10/16 08:21 Magnesium Hydroxide (Milk Of Magnesia Liq) 30 ml Q12H PO 11/03/16 09:00 11/10/16 08:20 Polyethylene Glycol (Miralax) 17 gm DAILY PO 11/03/16 10:30 11/10/16 08:20 Ondansetron HCl (Zofran Inj) 4 mg Q6HR PRN IV PUSH NAUSEA 11/04/16 13:30 11/10/16 08:30 Promethazine HCl (Phenergan) 25 mg Q6H PRN PO NAUSEA OR VOMITING 11/05/16 00:00 11/06/16 06:02 Dabigatran (Pradaxa) 150 mg BID PO 11/05/16 21:00 11/10/16 08:20 Insulin Human Regular (NovoLIN R SUPPLEMENTAL SCALE) 1 Q6HR SQ 11/06/16 18:00 11/09/16 23:07 Morphine Sulfate (Morphine Inj) 2 mg Q2HR PRN IV PUSH PAIN SCALE 9 TO 10 11/09/16 10:05 11/10/16 11:00 Objective Remarks GENERAL: Elderly male, sitting up in bed in nad. SKIN: Warm and dry. HEAD: Normocephalic. EYES: No injection or drainage. NECK: Supple, trachea midline. CARDIOVASCULAR: Regular rate and rhythm RESPIRATORY: Breath sounds equal bilaterally. No accessory muscle use. GASTROINTESTINAL: Abdomen soft, non-tender, nondistended. EXTREMITIES: No cyanosis. No edema. NEUROLOGICAL: awake and alert, normal speech. Assessment/Plan Problem List: (1) Bladder cancer Status: Chronic Plan: 11/10/16: Daily XRT. Tolerating well. Will consult PT today to work with pt for strengthening exercises. --Path results show transitional cell carcinoma. History: --had Noninvasive low grade urinary bladder cancer diagnosed in April 2016. --recently had cystoscopy showed multiple new bladder tumors. --s/p transurethral resection of the bladder tumor and the pathology report came back as low grade noninvasive papillary urothelial carcinoma. --MRI lumbar spine showed abnormal signal and marrow infiltrative lesion at L2 to the right of the midline with enhancement extending into the right pedicle and the right transverse process with surrounding soft tissue enhancement extending into the right neural foramina and epidural space. + second rim enhancing lesion measuring 1.5 cm in the right qamar-sacrum noted. Additional ill-defined enhancement is noted in the left qamar-sacrum which is into SI joint (2) Pain Status: Acute Plan: 11/10/16: Increase dilaudid to 2mg PO q 2 hours, and continue morphine 2mg IV for severe breakthrough pain. 11/08/16: long acting pain medications stopped. [place] 5/325 and 10/325 written for pain scale 1-8, and 9-10, respectively 11/07/16: Pain medication has been placed on hold d/t lethargy. Pt currently rating his pain at a "2". 11/05/16: His pain medication has been increased to 60 MS Contin Q8, and 30 MSIR Q3h. We will give him lactulose x 3 doses to induce a BM. 11/04: continu Oramorph to 60mg PO BID. start MS IR 15mg PO q3 hours for breakthrough. continue IV morphine for severe pain only. 11/02: will start MS contin, continue morphine scheduled while awake and for PRN. --Right-sided back pain radiating to the right hip, probably related to the lumbar lesion or kidney. (3) Atrial fibrillation Status: Chronic Plan: --follows with Dr. Young --On Pradaxa Assessment 71y/o male with urinary bladder cancer h/o Hypertension. Hypercholesterolemia. Squamous cell carcinoma of the skin and melanoma. Urinary bladder cancer diagnosed in April 2016 and recently with recurrent disease. History of kidney stones. gastroesophageal reflux disease. Atrial fibrillation. Attending Statement c/o back pain Increase PO dilaudid to 2 mg q 2hrs and continue morphine 2 mg IV prn. continue xrt start d/c planning Problem Qualifiers (1) Bladder cancer: Qualified Code: C67.9 - Malignant neoplasm of urinary bladder, unspecified site (2) Atrial fibrillation: Qualified Code: I48.91 - Atrial fibrillation, unspecified type Nan Rivas Nov 10, 2016 11:13 Obi Warner MD Nov 10, 2016 21:49
--- NOTE | 2016-11-10 13:07 | HHI.FPPN ---
Subjective Remarks Patient seen and examined this morning. No acute events overnight and VSS. This morning he complains of pain control and states that he is very frustrated with his current plan. He states that the Dilaudid 1mg Q2H only lasts for roughly 1 hour and would like something else or to increase his Dilaudid dose. I explained to him that due to his recent AMS episode after trials of long acting medication it is difficult to increase his dosages over a short timeframe or large quantities. He plans to discuss his current plan with Oncology latter in the day. His only other complaint today is continued mild distension, but he has had a BM and is improved overall from earlier in his hospital course. Otherwise he has no complaints and denies any fevers, chills, SOB, chest pain, NVD, or calf tenderness. (Dex Burgos MD R1) Objective Vitals Vital Signs Date Time Temp Pulse Resp B/P Pulse Ox O2 Delivery O2 Flow Rate FiO2 11/10/16 11:18 92 21 11/10/16 08:00 97.6 103 20 129/81 96 11/10/16 04:00 98.5 97 18 123/67 98 11/10/16 00:00 97.8 94 18 132/83 94 11/09/16 20:00 98.0 100 16 131/69 98 11/09/16 16:00 96.9 96 20 110/65 98 I/O 11/09/16 11/09/16 11/09/16 11/10/16 11/10/16 11/10/16 07:00 15:00 23:00 07:00 15:00 23:00 Intake Total 240 ml 240 ml 500 ml 240 ml Output Total 1200 ml 2450 ml 525 ml 600 ml Balance -960 ml -2210 ml -25 ml -360 ml Intake Oral 240 ml 240 ml 500 ml 240 ml IV Total 0 ml Output Urine Total 1200 ml 2450 ml 525 ml 600 ml # Bowel Movements 1 0 (Dex Burgos MD R1) Result Diagram: 11/09/16 0855 11/09/16 0608 Objective Remarks GEN: Lying in bed with at his side in no acute distress. CV: Regular rate and rhythm without obvious MGR. LUNGS: Clear to auscultation bilaterally. No wheezes, crackles, rubs. No accessory muscle use. On room air. GI: Soft, nontender, mild distention with positive bowel sounds.. No masses appreciated. EXT: No cyanosis. No calf tenderness. Mild 1+ edema of L ankle without tenderness. NEURO/PSYCH: AAO 3. Normal speech and judgment. Patient able to move all extremities. (Dex Burgos MD R1) A/P Assessment and Plan Mr. Ignacio is a 71 y/o with a PMHx of urinary bladder carcinoma presenting with worsening back and body pain secondary to metastasis. Discharge Planning 1-3 days pending pain control WDW: Dr. Amador and Dr. Sim (Dex Burgos MD R1) Attending Attestation Patient seen and examined. Case reviewed and discussed with the resident team. Agree with plan of care as discussed with me and documented in the resident note. (Yamilet Amador MD) Problem List: (1) Metastatic disease Status: Acute Plan: Patient with history of urinary bladder carcinoma on 04/2016 s/p multiple tumor resections presenting with progressing lower back pain. Suspected to be due to metastasis as evidenced by imaging. Oncology consulted: Appreciate recommendations * CT-guided renal biopsy 11/03: Transitional cell carcinoma * Radiation treatment 11/08 * Stopped long-acting pain medication Urology: appreciate recommendations. Signed off. Radiation Oncology: Appreciate recommendations Imaging: * Chest CT: Bilateral pulmonary nodules characteristic of metastatic disease. Right renal mass. No evidence of mediastinal or hilar lymphadenopathy. No evidence of destructive bone lesions. * CT abdomen: Complex masslike enlargement of the upper and mid poles of the right kidney with associated lymphadenopathy. Chronic right hydronephrosis. New right basilar lung nodule characteristic of metastatic disease. Medications: * Dilaudid 1mg PO Q2H for pain 1-8 * Morphine 2MG IV Q2H for pain 9-10 * NO LONG ACTING PAIN MEDICATIONS (2) Depression (emotion) Status: Acute Plan: Symptoms of depression due to the diagnosis of cancer. No suicidal ideation. -Discussed the benefits of Cymbalta to help with both chronic pain and mood. Patient and would like to think about it before starting. (3) Altered mental status Status: Resolved Plan: Patient with acute episode of altered mental status. Wmt called on 11/06 due to AMS and desaturations to the 80s. Patient remains neurologically intact with no focal deficits. Symptoms of AMS much improved suspect etiology was due to medication overdose from opiates. Critical care consulted 11/06, signed off 11/07 -Ammonia, TSH, CBC, CMP unremarkable -Respiratory acidosis improved -Urine Legionella and Streptococcus negative -Patient to be transferred back to Oncology floor as he has returned to his baseline Imaging: Head CT: No acute intracranial abnormality CTA: No PE identified. Her consolidation in the left lower lobe with small left pleural effusion. Dilated and fluid-filled esophagus suggesting severe reflux. High risk of aspiration Abdomen pelvis CT: 3.2 x 2.3 cm right renal pelvis mass suspicious for malignancy causing hydronephrosis. Diffusely distended colon without signs of obstruction. Medications: * Zosyn 11/06-11/08 (DC as etiology likely not infectious) (4) Atrial fibrillation Status: Chronic Plan: Patient with history of atrial fibrillation seen by Dr. Young. Continue metoprolol 50 mg twice a day Pradaxa 150mg BID for anticoagulation restarted s/p procedure as his urine is clear Monitor urine for continued hematuria (5) Constipation Status: Resolved Plan: Constipation has resolved. Likely due to his pain medication -Continue MiraLAX -Continue milk of magnesia and Dulcolax -Continue fluids to help with constipation (6) Creatinine elevation Status: Resolved Plan: Improved renal function. Per chart review normal creatinine in April 2016 at 1.15. Encourage PO fluids with regular diet Continue monitor (7) Nutrition, metabolism, and development symptoms Status: Acute Plan: Fluids: None Diet: Per speech recommendations Electrolytes: Unremarkable, continue to monitor GI: Omeprazole daily DVT: FIGUEROA/SCDs, Pradaxa 150mg BID Chronic conditions: * HLD: Continue atorvastatin 20 mg daily * HTN: Continue nifedipine 90 mg twice a day and Metoprolol 50mg twice a day (Dex Burgos MD R1) Problem Qualifiers (1) Altered mental status: Qualified Code: R40.0 - Somnolence (2) Atrial fibrillation: Qualified Code: I48.91 - Atrial fibrillation, unspecified type (3) Constipation: Qualified Code: K59.03 - Drug-induced constipation Dex Burgos MD R1 Nov 10, 2016 13:07 Yamilet Amador MD Nov 11, 2016 15:12
[2016-11-10] MEDS: ATORVASTATIN 20 MG TAB PO SCH (20:09)
[2016-11-11] VITALS: BP 135/72; PULSE 88; RESP 18; TEMP 96.7; O2SAT 96
[2016-11-11] MEDS: HYDROmorphone HCL 2 MG TAB PO PRN ×9 (01:33→23:24)
[2016-11-11 04:00] VITALS: BP 127/74; PULSE 86; RESP 18; TEMP 96.8; O2SAT 96
[2016-11-11] MEDS: INSULIN NovoLIN REGULAR SUPPLEMENTAL SCALE SQ SCH ×4 (05:59→23:28)
[2016-11-11 08:00] VITALS: BP 127/65; PULSE 93; RESP 18; TEMP 98.1; O2SAT 96
[2016-11-11] MEDS: METOPROLOL TARTRATE 50 MG TAB PO SCH ×2 (09:05→20:50)
[2016-11-11] MEDS: POLYETHYLENE GLYCOL 17 GM PKG PO SCH (09:05)
[2016-11-11] MEDS: MAGNESIUM HYDROXIDE SUSP 30 ML CUP PO SCH ×2 (09:05→20:51)
[2016-11-11] MEDS: PANTOPRAZOLE SOD 40 MG DELAYED RELEASE TAB PO SCH (09:05)
[2016-11-11] MEDS: DABIGATRAN ETEXILATE 150 MG CAP PO SCH ×2 (09:05→20:50)
[2016-11-11] MEDS: NIFEdipine 90 MG SUSTAINED RELEASE TAB PO SCH ×2 (09:05→20:50)
[2016-11-11] MEDS: SODIUM CHLORIDE 0.9% FLUSH 5 ML FLUSH FLUSH SCH ×2 (09:06→20:52)
--- NOTE | 2016-11-11 10:03 | HHI.FPPN ---
Subjective Remarks Patient seen and examined this morning. No acute events overnight with VSS. He states that going to 2mg Dilaudid Q2H has worked very well so far and has not required any IV morphine for breakthrough pain. His only complaint this morning is he has not had a solid BM in a couple of days. He restarted Miralax yesterday and has had multiple liquid BM. Otherwise he has no complaints and denies any fevers, SOB, chest pain, NV, or calf tenderness. (Dex Burgos MD R1) Objective Vitals Vital Signs Date Time Temp Pulse Resp B/P Pulse Ox O2 Delivery O2 Flow Rate FiO2 11/11/16 08:00 98.1 93 18 127/65 96 11/11/16 04:00 96.8 86 18 127/74 96 11/11/16 00:00 96.7 88 18 135/72 96 11/10/16 20:54 93 21 11/10/16 20:30 97.6 93 18 128/73 95 11/10/16 16:00 98.1 77 18 125/73 95 11/10/16 13:00 98.3 83 18 112/72 94 11/10/16 11:18 92 21 I/O 11/10/16 11/10/16 11/10/16 11/11/16 11/11/16 11/11/16 07:00 15:00 23:00 07:00 15:00 23:00 Intake Total 240 ml 987 ml Output Total 600 ml 1100 ml 1025 ml 850 ml 300 ml Balance -360 ml -113 ml -1025 ml -850 ml -300 ml Intake Oral 240 ml 987 ml Output Urine Total 600 ml 1100 ml 1025 ml 850 ml 300 ml # Bowel Movements 1 (Dex Burgos MD R1) Result Diagram: 11/09/16 0855 11/09/16 0608 Objective Remarks GEN: Lying in bed with at his side in no acute distress. CV: Regular rate and rhythm without obvious MGR. LUNGS: Clear to auscultation bilaterally. No wheezes, crackles, rubs. GI: Soft, nontender, mild distention with positive bowel sounds.. No masses appreciated. EXT: No cyanosis. No calf tenderness. Mild 1+ edema of L ankle without tenderness. NEURO/PSYCH: AAO 3. Normal speech and judgment. Patient able to move all extremities. (Dex Burgos MD R1) A/P Assessment and Plan Mr. Ignacio is a 71 y/o with a PMHx of urinary bladder carcinoma presenting with worsening back and body pain secondary to metastasis. Discharge Planning 1-3 days pending pain control WDW: Dr. Amador and Dr. Sim (Dex Burgos MD R1) Attending Attestation Patient seen and examined. Case reviewed and discussed with the resident team. Agree with plan of care as discussed with me and documented in the resident note. (Yamilet Amador MD) Problem List: (1) Metastatic disease Status: Acute Plan: Patient with history of urinary bladder carcinoma on 04/2016 s/p multiple tumor resections presenting with progressing lower back pain. Suspected to be due to metastasis as evidenced by imaging. Oncology consulted: Appreciate recommendations * CT-guided renal biopsy 11/03: Transitional cell carcinoma * Radiation treatment 11/08 * Stopped long-acting pain medication Urology: appreciate recommendations. Signed off. Radiation Oncology: Appreciate recommendations Imaging: * Chest CT: Bilateral pulmonary nodules characteristic of metastatic disease. Right renal mass. No evidence of mediastinal or hilar lymphadenopathy. No evidence of destructive bone lesions. * CT abdomen: Complex masslike enlargement of the upper and mid poles of the right kidney with associated lymphadenopathy. Chronic right hydronephrosis. New right basilar lung nodule characteristic of metastatic disease. Medications: * Dilaudid 2mg PO Q2H for pain 1-8 * Morphine 2MG IV Q2H for pain 9-10 * NO LONG ACTING PAIN MEDICATIONS (2) Depression (emotion) Status: Acute Plan: Symptoms of depression due to the diagnosis of cancer. No suicidal ideation. -Discussed the benefits of Cymbalta to help with both chronic pain and mood. Patient and would like to think about it before starting. (3) Altered mental status Status: Resolved Plan: Patient with acute episode of altered mental status. Halicat called on 11/06 due to AMS and desaturations to the 80s. Patient remains neurologically intact with no focal deficits. Symptoms of AMS much improved suspect etiology was due to medication overdose from opiates. Critical care consulted 11/06, signed off 11/07 -Ammonia, TSH, CBC, CMP unremarkable -Respiratory acidosis improved -Urine Legionella and Streptococcus negative -Patient to be transferred back to Oncology floor as he has returned to his baseline Imaging: Head CT: No acute intracranial abnormality CTA: No PE identified. Her consolidation in the left lower lobe with small left pleural effusion. Dilated and fluid-filled esophagus suggesting severe reflux. High risk of aspiration Abdomen pelvis CT: 3.2 x 2.3 cm right renal pelvis mass suspicious for malignancy causing hydronephrosis. Diffusely distended colon without signs of obstruction. Medications: * Zosyn 3/4-11/08 (DC as etiology likely not infectious) (4) Atrial fibrillation Status: Chronic Plan: Patient with history of atrial fibrillation seen by Dr. Young. Continue metoprolol 50 mg twice a day Pradaxa 150mg BID for anticoagulation restarted s/p procedure as his urine is clear Monitor urine for continued hematuria (5) Constipation Status: Resolved Plan: Constipation has resolved. Likely due to his pain medication -Continue MiraLAX -Continue milk of magnesia and Dulcolax -Continue fluids to help with constipation (6) Creatinine elevation Status: Resolved Plan: Improved renal function. Per chart review normal creatinine in April 2016 at 1.15. Encourage PO fluids with regular diet Continue monitor (7) Nutrition, metabolism, and development symptoms Status: Acute Plan: Fluids: None Diet: Per speech recommendations Electrolytes: Unremarkable, continue to monitor GI: Omeprazole daily DVT: FIGUEROA/SCDs, Pradaxa 150mg BID PT: Evaluate and Treat, appreciate recommendations Chronic conditions: * HLD: Continue atorvastatin 20 mg daily * HTN: Continue nifedipine 90 mg twice a day and Metoprolol 50mg twice a day (Dex Burgos MD R1) Problem Qualifiers (1) Altered mental status: Qualified Code: R40.0 - Somnolence (2) Atrial fibrillation: Qualified Code: I48.91 - Atrial fibrillation, unspecified type (3) Constipation: Qualified Code: K59.03 - Drug-induced constipation Dex Burgos MD R1 Nov 11, 2016 10:03 Yamilet Amador MD Nov 11, 2016 15:13
[2016-11-11] MEDS ORDERED: HOSP BED2 (12:48)
[2016-11-11] MEDS ORDERED: WHEEMIS3 (12:48)
[2016-11-11 16:00] VITALS: BP_SYST 109; BP_SYST 122; BP_DIAS 62; BP_DIAS 69; PULSE 55; PULSE 84; RESP 16; TEMP 97; TEMP 97.8; O2SAT 96
[2016-11-11 17:33] VITALS: O2SAT 96
[2016-11-11 20:00] VITALS: BP 135/67; PULSE 93; RESP 18; TEMP 98.8; O2SAT 97
[2016-11-11] MEDS: ATORVASTATIN 20 MG TAB PO SCH (20:50)
--- NOTE | 2016-11-11 22:32 | PD.ONC.PN ---
Subjective Subjective Remarks less pain. On dilaudid 2 mg PO q2 hr prn. Anxious to go home. Objective Data Date Time Temp Pulse Resp B/P Pulse Ox O2 Delivery O2 Flow Rate FiO2 11/11/16 20:00 98.8 93 18 135/67 97 11/11/16 17:33 96 21 11/11/16 16:00 97.0 84 16 109/62 96 11/11/16 08:00 98.1 93 18 127/65 96 11/11/16 04:00 96.8 86 18 127/74 96 11/11/16 00:00 96.7 88 18 135/72 96 11/11/16 11/11/16 11/11/16 07:00 15:00 23:00 Intake Total 1677 ml Output Total 850 ml 1700 ml Balance -850 ml -23 ml Result Diagram: 11/09/16 0855 11/09/16 0608 Administered Medications Medications (Trade) Dose Ordered Sig/Blair Route PRN Reason Start Time Stop Time Status Last Admin Dose Admin Atorvastatin Calcium (Lipitor) 20 mg HS PO 11/01/16 21:00 11/11/16 20:50 Metoprolol Tartrate (Lopressor) 50 mg BID PO 11/01/16 21:00 11/11/16 20:50 Nifedipine (Procardia Xl) 90 mg BID PO 11/01/16 21:00 11/11/16 20:50 Pantoprazole Sodium (Protonix) 40 mg DAILY PO 11/02/16 09:00 11/11/16 09:05 IV Flush (NS Flush) 2 ml BID FLUSH 11/01/16 12:00 11/11/16 20:52 Magnesium Hydroxide (Milk Of Magnesia Liq) 30 ml Q12H PO 11/03/16 09:00 11/11/16 09:05 Polyethylene Glycol (Miralax) 17 gm DAILY PO 11/03/16 10:30 11/11/16 09:05 Ondansetron HCl (Zofran Inj) 4 mg Q6HR PRN IV PUSH NAUSEA 11/04/16 13:30 11/10/16 21:17 Promethazine HCl (Phenergan) 25 mg Q6H PRN PO NAUSEA OR VOMITING 11/05/16 00:00 11/06/16 06:02 Dabigatran (Pradaxa) 150 mg BID PO 11/05/16:00 11/11/16 20:50 Insulin Human Regular (NovoLIN R SUPPLEMENTAL SCALE) 1 Q6HR SQ 11/06/16 18:00 11/09/16 23:07 Morphine Sulfate (Morphine Inj) 2 mg Q2HR PRN IV PUSH PAIN SCALE 9 TO 10 11/09/16 10:05 11/10/16 11:00 Hydromorphone HCl (Dilaudid) 2 mg Q2H PRN PO PAIN SCALE 1 TO 8 11/10/16 12:15 11/11/16 20:50 Objective Remarks GENERAL: Well-nourished, well-developed patient. SKIN: Warm and dry. HEAD: Normocephalic. EYES: No scleral icterus. No injection or drainage. NECK: Supple, trachea midline. No JVD or lymphadenopathy. LYMPHATIC: No adenopathy. CARDIOVASCULAR: Regular rate and rhythm without murmurs. RESPIRATORY: Breath sounds equal bilaterally. No accessory muscle use. GASTROINTESTINAL: Abdomen soft, non-tender, nondistended. EXTREMITIES: No cyanosis, or edema. NEUROLOGICAL: No obvious focal deficit. Awake, alert, and oriented x3. PSYCHIATRIC: Appropriate mood and affect; insight and judgment normal. Assessment/Plan Problem List: (1) Bladder cancer Status: Chronic Plan: 11/10/16: Daily XRT. Tolerating well. Will consult PT today to work with pt for strengthening exercises. --Path results show transitional cell carcinoma. History: --had Noninvasive low grade urinary bladder cancer diagnosed in April 2016. --recently had cystoscopy showed multiple new bladder tumors. --s/p transurethral resection of the bladder tumor and the pathology report came back as low grade noninvasive papillary urothelial carcinoma. --MRI lumbar spine showed abnormal signal and marrow infiltrative lesion at L2 to the right of the midline with enhancement extending into the right pedicle and the right transverse process with surrounding soft tissue enhancement extending into the right neural foramina and epidural space. + second rim enhancing lesion measuring 1.5 cm in the right qamar-sacrum noted. Additional ill-defined enhancement is noted in the left qamar-sacrum which is into SI joint (2) Pain Status: Acute Plan: 11/11/16 Tolerating XRT well. Discuss with pt and family that after completion of XRT will start chemo. OK to d/c home after XRT tomorrow. 11/10/16: Increase dilaudid to 2mg PO q 2 hours, and continue morphine 2mg IV for severe breakthrough pain. 11/08/16: long acting pain medications stopped. [place] and written for pain scale 1-8, and 9-10, respectively 11/07/16: Pain medication has been placed on hold d/t lethargy. Pt currently rating his pain at a "2". 11/05/16: His pain medication has been increased to 60 MS Contin Q8, and 30 MSIR Q3h. We will give him lactulose x 3 doses to induce a BM. 11/04: continu Oramorph to 60mg PO BID. start MS IR 15mg PO q3 hours for breakthrough. continue IV morphine for severe pain only. 11/02: will start MS contin, continue morphine scheduled while awake and for PRN. --Right-sided back pain radiating to the right hip, probably related to the lumbar lesion or kidney. (3) Atrial fibrillation Status: Chronic Plan: --follows with Dr. Young --On Pradaxa Assessment 71y/o male with urinary bladder cancer h/o Hypertension. Hypercholesterolemia. Squamous cell carcinoma of the skin and melanoma. Urinary bladder cancer diagnosed in April 2016 and recently with recurrent disease. History of kidney stones. gastroesophageal reflux disease. Atrial fibrillation. Problem Qualifiers (1) Bladder cancer: Qualified Code: C67.9 - Malignant neoplasm of urinary bladder, unspecified site (2) Atrial fibrillation: Qualified Code: I48.91 - Atrial fibrillation, unspecified type Obi Warner MD Nov 11, 2016 22:32
[2016-11-11] MEDS: ONDANSETRON HCL 4 MG/2 ML VIAL IV PUSH PRN (22:38)
[2016-11-12] VITALS: BP 114/64; PULSE 92; RESP 19; TEMP 97.6; O2SAT 98
[2016-11-12] MEDS: HYDROmorphone HCL 2 MG TAB PO PRN ×7 (01:54→15:47)
[2016-11-12 04:00] VITALS: BP 116/69; PULSE 88; RESP 18; TEMP 96.9; O2SAT 97
[2016-11-12] MEDS: INSULIN NovoLIN REGULAR SUPPLEMENTAL SCALE SQ SCH ×2 (06:00→11:26)
[2016-11-12] MEDS ORDERED: MILKSUS PO (06:08)
[2016-11-12] MEDS ORDERED: POLY17S PO (06:08)
[2016-11-12] MEDS ORDERED: DILA2TAB2 PO (06:08)
[2016-11-12] MEDS ORDERED: PRAD150C PO (06:08)
--- NOTE | 2016-11-12 06:09 | HHI.DCPOC ---
Discharge Care Plan Diagnosis: (1) Bladder cancer (2) Atrial fibrillation (3) Metastatic disease (4) Constipation Goals to Promote Your Health * To prevent worsening of your condition and complications * To maintain your health at the optimal level Directions to Meet Your Goals Take your medications as prescribed Follow your dietary instruction Follow activity as directed Keep your appointments as scheduled Take your immunizations and boosters as scheduled If your symptoms worsen call your PCP, if no PCP go to Urgent Care Center or Emergency Room Smoking is Dangerous to Your Health. Avoid second hand smoke Call the 24-hour hour crisis hotline for domestic abuse at Glenis Jacobsen MD R2 Nov 12, 2016 06:09
--- NOTE | 2016-11-12 06:10 | HHI.FF ---
Face to Face Verification Diagnosis: (1) Bladder mass (2) Metastatic disease (3) Physical deconditioning (4) Depression (emotion) Physical Therapy Order: Evaluate and Treat I have seen patient Roly Ignacio on 11/12/16. My clinical findings support the need for the requested home health care services because: Deconditioned w/ increased weakness I certify that my clinical findings support that this patient is homebound because: Unsteady gait/balance Need for psychosocial assistance Glenis Jacobsen MD R2 Nov 12, 2016 06:10
[2016-11-12 08:00] VITALS: BP 124/65; PULSE 86; RESP 18; TEMP 96.4; O2SAT 98
[2016-11-12] MEDS ORDERED: ZOFR4TAB3 SL (08:22)
[2016-11-12] MEDS: DABIGATRAN ETEXILATE 150 MG CAP PO SCH (08:49)
[2016-11-12] MEDS: METOPROLOL TARTRATE 50 MG TAB PO SCH (08:49)
[2016-11-12] MEDS: PANTOPRAZOLE SOD 40 MG DELAYED RELEASE TAB PO SCH (08:49)
[2016-11-12] MEDS: NIFEdipine 90 MG SUSTAINED RELEASE TAB PO SCH (08:49)
[2016-11-12] MEDS: POLYETHYLENE GLYCOL 17 GM PKG PO SCH (08:49)
[2016-11-12] MEDS: ONDANSETRON HCL 4 MG/2 ML VIAL IV PUSH PRN (08:49)
[2016-11-12] MEDS: MAGNESIUM HYDROXIDE SUSP 30 ML CUP PO SCH (08:50)
[2016-11-12] MEDS: SODIUM CHLORIDE 0.9% FLUSH 5 ML FLUSH FLUSH SCH (08:50)
--- NOTE | 2016-11-12 09:42 | HHI.FPPN ---
Subjective Remarks No acute events overnight. Vital signs unremarkable. This morning patient states that he feels that his pain is well-controlled on oral medication. He feels very to be discharged today. He otherwise has no complaints. (Glenis Lopez MD R2) Objective Vitals Vital Signs Date Time Temp Pulse Resp B/P Pulse Ox O2 Delivery O2 Flow Rate FiO2 11/12/16 04:00 96.9 88 18 116/69 97 11/12/16 00:00 97.6 92 19 114/64 98 11/11/16 20:00 98.8 93 18 135/67 97 11/11/16 17:33 96 21 11/11/16 16:00 97.0 84 16 109/62 96 I/O 11/11/16 11/11/16 11/11/16 11/12/16 11/12/16 11/12/16 07:00 15:00 23:00 07:00 15:00 23:00 Intake Total 1677 ml 240 ml 240 ml Output Total 850 ml 1700 ml 600 ml 600 ml Balance -850 ml -23 ml -360 ml -360 ml Intake Oral 1677 ml 240 ml 240 ml Output Urine Total 850 ml 1700 ml 600 ml 600 ml # Bowel Movements 1 0 0 (Glenis Jacobsen MD R2) Result Diagram: 11/09/16 0855 11/09/16 0608 Objective Remarks GEN: Lying in bed with at his side in no acute distress. CV: Regular rate and rhythm without obvious MGR. LUNGS: Clear to auscultation bilaterally. No wheezes, crackles, rubs. EXT: No cyanosis. No calf tenderness. No edema. NEURO/PSYCH: AAO 3. Normal speech and judgment. Patient able to move all extremities. (Glenis Jacobsen MD R2) A/P Assessment and Plan Mr. Ignacio is a 71 y/o with a PMHx of urinary bladder carcinoma presenting with worsening back and body pain secondary to metastasis. Discharge Planning Today after radiation treatment Will need hospital bed, wheelchair and walker at discharge due to deconditioning , decreased mobility, weakness, and severe pain from cancer and radiation treatment. Due to severity of disease and associated symptoms, will require prolonged use of this equipment so that patient can have proper and safe care at home. DW: Dr. Amador (Glenis Jacobsen MD R2) Attending Attestation Patient seen and examined. Case reviewed and discussed with the resident team. Agree with plan of care as discussed with me and documented in the resident note. (Yamilet Amador MD) Problem List: (1) Metastatic disease Status: Acute Plan: Patient with history of urinary bladder carcinoma on 04/2016 s/p multiple tumor resections presenting with progressing lower back pain. Suspected to be due to metastasis as evidenced by imaging. Oncology consulted: Appreciate recommendations * CT-guided renal biopsy 11/03: Transitional cell carcinoma * Radiation therapy * Okay to discharge today after radiation treatment Urology: appreciate recommendations * Metastatic urothelial carcinoma * No indication for right nephrectomy at the present time * Further management per oncology Radiation Oncology: Appreciate recommendations Imaging: * Chest CT: Bilateral pulmonary nodules characteristic of metastatic disease. Right renal mass. No evidence of mediastinal or hilar lymphadenopathy. No evidence of destructive bone lesions. * CT abdomen: Complex masslike enlargement of the upper and mid poles of the right kidney with associated lymphadenopathy. Chronic right hydronephrosis. New right basilar lung nodule characteristic of metastatic disease. Medications: * Deferred to Oncology for further pain medication recommendations as AMS was likely etiology of medication overdose * Pain currently controlled on Dilaudid 2 mg PO q2 without the use of IV for breakthrough Relevant Imaging from outside facility MRI Impression from [facility] 1. Enhancing interosseous lesion at L2 extending into the right lateral mass; posterior elements and transverse process with surrounding necrotic soft tissue and neuro foramina involvement, impinging on the L2 nerve root, suggestive of metastatic disease until proven otherwise, less likely inflammatory. Secondary enhancing lesion in the sacrum slightly eccentric to the right measures 1.5 cm and a third ill-defined enhancement of the left sacrum adjacent to the sacroiliac joint. Bone scan and screening for occult carcinoma suggested. 2. Disc disease with grade 1 anterolisthesis L4-L5. Combination of disc herniation and facet hypertrophy is present narrowing the neural for him in a impinging on the L5 nerve roots. There is an underlying pars defect. 3. Herniation L5-S1 eccentric to the left. There is left lateral recess narrowing impinging the descending S1 nerve root. There is bilateral foraminal narrowing abutting the L5 nerve root (2) Altered mental status Status: Resolved Plan: Patient with acute episode of altered mental status. Halicat called on 11/06 due to AMS and desaturations to the 80s. Patient remains neurologically intact with no focal deficits. Symptoms of AMS resolved, suspect etiology was due to medication overdose from opiates. Critical care consulted 11/06, signed off 11/07 -Ammonia, TSH, CBC, CMP unremarkable -Respiratory acidosis improved -Urine Legionella and Streptococcus negative Imaging: Head CT: No acute intracranial abnormality CTA: No PE identified. Her consolidation in the left lower lobe with small left pleural effusion. Dilated and fluid-filled esophagus suggesting severe reflux. High risk of aspiration Abdomen pelvis CT: 3.2 x 2.3 cm right renal pelvis mass suspicious for malignancy causing hydronephrosis. Diffusely distended colon without signs of obstruction. Medications: * Zosyn 11/06-11/08 (DC as etiology likely not infectious) (3) Bladder cancer Status: Chronic Plan: See plan above (4) Atrial fibrillation Status: Chronic Plan: Patient with history of atrial fibrillation seen by Dr. Young. Continue metoprolol 50 mg twice a day Pradaxa 150mg BID for anticoagulation restarted s/p procedure as his urine is clear Monitor urine for continued hematuria (5) Constipation Status: Resolved Plan: Patient complaining of constipation likely due to his pain medication -Continue MiraLAX -Continue milk of magnesia and Dulcolax -Continue fluids to help with constipation (6) Nutrition, metabolism, and development symptoms Status: Acute Plan: Fluids: none Diet: Heart healthy Electrolytes: Unremarkable, continue to monitor GI: Omeprazole daily DVT: FIGUEROA/SCDs, Pradaxa 150mg BID Chronic conditions: * HLD: Continue atorvastatin 20 mg daily * HTN: Continue nifedipine 90 mg twice a day and Metoprolol 50mg twice a day (Glenis Jacobsen MD R2) Problem Qualifiers (1) Altered mental status: Qualified Code: R40.0 - Somnolence (2) Bladder cancer: Qualified Code: C67.9 - Malignant neoplasm of urinary bladder, unspecified site (3) Atrial fibrillation: Qualified Code: I48.91 - Atrial fibrillation, unspecified type (4) Constipation: Qualified Code: K59.03 - Drug-induced constipation Glenis Jacobsen MD R2 Nov 12, 2016 09:42 Yamilet Amador MD Nov 17, 2016 14:03
[2016-11-12 10:36] VITALS: O2SAT 98
[2016-11-12] MEDS ORDERED: ROLLER WALKER1 MI1 (11:37)
[2016-11-12 12:00] VITALS: BP 130/70; PULSE 78; RESP 20; TEMP 97.9; O2SAT 98
--- NOTE | 2016-11-12 12:14 | PD.ONC.PN ---
Subjective Subjective Remarks Afebrile overnight. Patient states pain is controlled today. He is waiting to go for radiation today. Objective Data Date Time Temp Pulse Resp B/P Pulse Ox O2 Delivery O2 Flow Rate FiO2 11/12/16 10:36 98 21 11/12/16 08:00 96.4 86 18 124/65 98 11/12/16 04:00 96.9 88 18 116/69 97 11/12/16 00:00 97.6 92 19 114/64 98 11/11/16 20:00 98.8 93 18 135/67 97 11/11/16 17:33 96 21 11/11/16 16:00 97.0 84 16 109/62 96 11/12/16 11/12/16 11/12/16 07:00 15:00 23:00 Intake Total 240 ml Output Total 600 ml Balance -360 ml Result Diagram: 11/09/16 0855 11/09/16 0608 Administered Medications Medications (Trade) Dose Ordered Sig/Blair Route PRN Reason Start Time Stop Time Status Last Admin Dose Admin Atorvastatin Calcium (Lipitor) 20 mg HS PO 11/01/16 21:00 11/11/16 20:50 Metoprolol Tartrate (Lopressor) 50 mg BID PO 11/01/16 21:00 11/12/16 08:49 Nifedipine (Procardia Xl) 90 mg BID PO 11/01/16 21:00 11/12/16 08:49 Pantoprazole Sodium (Protonix) 40 mg DAILY PO 11/02/16 09:00 11/12/16 08:49 IV Flush (NS Flush) 2 ml BID FLUSH 11/01/16 12:00 11/12/16 08:50 Magnesium Hydroxide (Milk Of Magnesia Liq) 30 ml Q12H PO 11/03/16 09:00 11/11/16 09:05 Polyethylene Glycol (Miralax) 17 gm DAILY PO 11/03/16 10:30 11/12/16 08:49 Ondansetron HCl (Zofran Inj) 4 mg Q6HR PRN IV PUSH NAUSEA 11/04/16 13:30 11/12/16 08:49 Promethazine HCl (Phenergan) 25 mg Q6H PRN PO NAUSEA OR VOMITING 11/05/16 00:00 11/06/16 06:02 Dabigatran (Pradaxa) 150 mg BID PO 11/05/16 21:00 11/12/16 08:49 Insulin Human Regular (NovoLIN R SUPPLEMENTAL SCALE) 1 Q6HR SQ 11/06/16 18:00 11/09/16 23:07 Morphine Sulfate (Morphine Inj) 2 mg Q2HR PRN IV PUSH PAIN SCALE 9 TO 10 11/09/16 10:05 11/10/16 11:00 Hydromorphone HCl (Dilaudid) 2 mg Q2H PRN PO PAIN SCALE 1 TO 8 11/10/16 12:15 11/12/16 11:24 Objective Remarks GENERAL: Elderly male, supine in bed in nad. SKIN: Warm and dry. HEAD: Normocephalic. EYES: No injection or drainage. NECK: Supple, trachea midline. CARDIOVASCULAR: Regular rate and rhythm RESPIRATORY: Breath sounds equal bilaterally. No accessory muscle use. GASTROINTESTINAL: Abdomen soft, non-tender, nondistended. EXTREMITIES: No cyanosis NEUROLOGICAL: awake and alert, normal speech. able to move all extremities. Assessment/Plan Problem List: (1) Bladder cancer Status: Chronic Plan: 11/12/16: clear for discharge, will need follow up the week after completion of radiation--follow up scheduled for 11/26/16--schedule given to patient --Path results show transitional cell carcinoma. History: --had Noninvasive low grade urinary bladder cancer diagnosed in April 2016. --recently had cystoscopy showed multiple new bladder tumors. --s/p transurethral resection of the bladder tumor and the pathology report came back as low grade noninvasive papillary urothelial carcinoma. --MRI lumbar spine showed abnormal signal and marrow infiltrative lesion at L2 to the right of the midline with enhancement extending into the right pedicle and the right transverse process with surrounding soft tissue enhancement extending into the right neural foramina and epidural space. + second rim enhancing lesion measuring 1.5 cm in the right qamar-sacrum noted. Additional ill-defined enhancement is noted in the left qaamr-sacrum which is into SI joint (2) Pain Status: Acute Plan: 11/12/16 tolerating dilaudid. follow up in clinic 11/10/16: Increase dilaudid to 2mg PO q 2 hours, and continue morphine 2mg IV for severe breakthrough pain. 11/08/16: long acting pain medications stopped. [place] 5/325 and 10/325 written for pain scale 1-8, and 9-10, respectively 11/07/16: Pain medication has been placed on hold d/t lethargy. Pt currently rating his pain at a "2". 11/05/16: His pain medication has been increased to 60 MS Contin Q8, and 30 MSIR Q3h. We will give him lactulose x 3 doses to induce a BM. 11/04: continu Oramorph to 60mg PO BID. start MS IR 15mg PO q3 hours for breakthrough. continue IV morphine for severe pain only. 11/02: will start MS contin, continue morphine scheduled while awake and for PRN. --Right-sided back pain radiating to the right hip, probably related to the lumbar lesion or kidney. (3) Atrial fibrillation Status: Chronic Plan: --follows with Dr. Young --On Pradaxa Assessment 71y/o male with urinary bladder cancer h/o Hypertension. Hypercholesterolemia. Squamous cell carcinoma of the skin and melanoma. Urinary bladder cancer diagnosed in April 2016 and recently with recurrent disease. History of kidney stones. gastroesophageal reflux disease. Atrial fibrillation. Attending Statement pain is better Anxious to go home. d./c home after XRT today fu as outpt The exam, history, and the medical decision-making described in the above note were completed with the assistance of the mid-level provider. I reviewed and agree with the findings presented. I attest that I had a [id number] encounter with the patient on the same day, and personally performed and documented my assessment and findings in the medical record. Problem Qualifiers (1) Bladder cancer: Qualified Code: C67.9 - Malignant neoplasm of urinary bladder, unspecified site (2) Atrial fibrillation: Qualified Code: I48.91 - Atrial fibrillation, unspecified type Coleen Smith Nov 12, 2016 12:14 Obi Warner MD Nov 12, 2016 16:27
--- NOTE | 2016-11-12 16:05 | HHI.DS ---
Discharge Summary Admission Date Nov 01, 2016 at 10:41 Discharge Date: Nov 12, 2016 Admitting Diagnosis bladder cancer with probable bone metastasis, back pain (1) Metastatic disease Plan: Patient with history of urinary bladder carcinoma on 04/2016 s/p multiple tumor resections presenting with progressing lower back pain. Suspected to be due to metastasis as evidenced by imaging. Oncology consulted: Appreciate recommendations * CT-guided renal biopsy 11/03: Transitional cell carcinoma * Radiation therapy * Okay to discharge today after radiation treatment Urology: appreciate recommendations * Metastatic urothelial carcinoma * No indication for right nephrectomy at the present time * Further management per oncology Radiation Oncology: Appreciate recommendations Imaging: * Chest CT: Bilateral pulmonary nodules characteristic of metastatic disease. Right renal mass. No evidence of mediastinal or hilar lymphadenopathy. No evidence of destructive bone lesions. * CT abdomen: Complex masslike enlargement of the upper and mid poles of the right kidney with associated lymphadenopathy. Chronic right hydronephrosis. New right basilar lung nodule characteristic of metastatic disease. Medications: * Deferred to Oncology for further pain medication recommendations as AMS was likely etiology of medication overdose * Pain currently controlled on Dilaudid 2 mg PO q2 without the use of IV for breakthrough Relevant Imaging from outside facility MRI Impression from [facility] 1. Enhancing interosseous lesion at L2 extending into the right lateral mass; posterior elements and transverse process with surrounding necrotic soft tissue and neuro foramina involvement, impinging on the L2 nerve root, suggestive of metastatic disease until proven otherwise, less likely inflammatory. Secondary enhancing lesion in the sacrum slightly eccentric to the right measures 1.5 cm and a third ill-defined enhancement of the left sacrum adjacent to the sacroiliac joint. Bone scan and screening for occult carcinoma suggested. 2. Disc disease with grade 1 anterolisthesis L4-L5. Combination of disc herniation and facet hypertrophy is present narrowing the neural for him in a impinging on the L5 nerve roots. There is an underlying pars defect. 3. Herniation L5-S1 eccentric to the left. There is left lateral recess narrowing impinging the descending S1 nerve root. There is bilateral foraminal narrowing abutting the L5 nerve root (2) Altered mental status Plan: Patient with acute episode of altered mental status. Halicat called on 11/06 due to AMS and desaturations to the 80s. Patient remains neurologically intact with no focal deficits. Symptoms of AMS resolved, suspect etiology was due to medication overdose from opiates. Critical care consulted 11/06, signed off 11/07 -Ammonia, TSH, CBC, CMP unremarkable -Respiratory acidosis improved -Urine Legionella and Streptococcus negative Imaging: Head CT: No acute intracranial abnormality CTA: No PE identified. Her consolidation in the left lower lobe with small left pleural effusion. Dilated and fluid-filled esophagus suggesting severe reflux. High risk of aspiration Abdomen pelvis CT: 3.2 x 2.3 cm right renal pelvis mass suspicious for malignancy causing hydronephrosis. Diffusely distended colon without signs of obstruction. Medications: * Zosyn 11/06-11/08 (DC as etiology likely not infectious) (3) Bladder cancer Plan: See plan above (4) Atrial fibrillation Plan: Patient with history of atrial fibrillation seen by Dr. Young. Continue metoprolol 50 mg twice a day Pradaxa 150mg BID for anticoagulation restarted s/p procedure as his urine is clear Monitor urine for continued hematuria (5) Constipation Plan: Patient complaining of constipation likely due to his pain medication -Continue MiraLAX -Continue milk of magnesia and Dulcolax -Continue fluids to help with constipation (6) Nutrition, metabolism, and development symptoms Plan: Fluids: none Diet: Heart healthy Electrolytes: Unremarkable, continue to monitor GI: Omeprazole daily DVT: FIGUEROA/SCDs, Pradaxa 150mg BID Chronic conditions: * HLD: Continue atorvastatin 20 mg daily * HTN: Continue nifedipine 90 mg twice a day and Metoprolol 50mg twice a day [facility] Procedures Radiation treatment Renal biopsy Brief History Mr. Ignacio is a 71 y/o CM with a PMHx of urinary bladder carcinoma who presented with worsening back pain. He was accompanied by his and younger step-sister who assisted with the history. In April of 2016 he was diagnosed with bladder carcinoma after being admitted for urinary retention. He states 5 tumors were removed surgically by Dr. Duncan, urology, with the pathology report of low grade. He did not require any radiation or chemotherapy treatments and was told to follow up in 6 months for routine cystoscopy which showed multiple new tumors. His tumors were surgically removed by Dr. Duncan last week, 10/25/16, with pathology currently pending. Approximately 3 months ago (August) he began having lower back pain. He states that the pain has progressed over that time from a small area in his lower back to his entire lower back and down his R leg to his mid thigh on the anterior and lateral sides. He describes the pain as throbbing with episodes of sharp, shooting, 10/ 10 pain. He has been on Percocet 5mg and recently increased to 10mg Q6H, but currently was not controlling his pain. An MRI was completed on 10/18 of his lower back was ordered by Dr. Pizano, orthopedic surgeon, to evaluate his pain as he is s/p R hip replacement. The MRI shows a possibility of metastasis to the lumbar spine. Of note, he followed up with Dr. Duncan the morning of admission and had his catheter removed post-procedure He has voided one time with pink-tinged urine. He was seen by Heme Onc and had CTs which showed a renal mass and likely metastatic disease in multiple areas of body. This would be a new and aggressive cancer as it was not present a year ago. A bone scan is scheduled for today with possible bone biopsy depending on the results. CBC/BMP: 11/09/16 0855 11/09/16 0608 Imaging Last Impressions Head CT 11/06/16 0000 Signed Impressions: Service Date/Time: Sunday, November 06, 2016 10:52 - CONCLUSION: No acute intracranial abnormality is identified. Sheldon Goodwin MD Chest X-Ray 11/06/16 0000 Signed Impressions: Service Date/Time: Sunday, November 06, 2016 16:06 - CONCLUSION: NG tube as above. Sahil Yanez MD CT Angiography 11/06/16 0000 Signed Impressions: Service Date/Time: Sunday, November 06, 2016 11:06 - CONCLUSION: 1. Examination quality is degraded by respiratory motion artifact. No PE is identified. 2. Airspace consolidation in the left lower lobe with small left pleural effusion. 3. Dilated and fluid-filled esophagus suggesting severe reflux. The patient is at high risk for aspiration. Sheldon Goodwin MD Abdomen/Pelvis CT 11/06/16 0000 Signed Impressions: Service Date/Time: Sunday, November 06, 2016 11:06 - CONCLUSION: 1. Persistent abnormal right kidney with cortical thinning and abnormal delayed enhancement. There is also hydronephrosis that appears to because by a obstructing urothelial mass in the renal pelvis measuring 3.2 x 2.3 cm. This is highly suspicious for malignancy and there is perinephric stranding and an adjacent enlarged lymph node. 2. Urinary bladder is not well visualized do to beam hardening artifact. However, there is suspected wall thickening along the lateral aspects bilaterally. 3. Diffusely distended colon without signs of obstruction. Sheldon Goodwin MD Renal Biopsy CT 11/03/16 0000 Signed Impressions: Service Date/Time: Thursday, November 03, 2016 14:31 - CONCLUSION: Uncomplicated CT guided biopsy. Donny Meyer MD SPECT Scan-Bone Nuclear Medicine 11/02/16 0000 Signed Impressions: Service Date/Time: Wednesday, November 02, 2016 13:20 - CONCLUSION: 1. Scattered areas of abnormal tracer accumulation involving the low cervical spine, thoracic spine, the lumbar spine, the right fifth rib and the sacrum concerning for metastatic disease. Esvin Turner MD Chest CT 11/01/16 0000 Signed Impressions: Service Date/Time: Tuesday, November 01, 2016 19:59 - CONCLUSION: Bilateral pulmonary nodules characteristic of metastatic disease. Right renal mass. No evidence of mediastinal or hilar lymphadenopathy. No evidence of destructive bone lesions. Pravin Jackman MD PE at Discharge GEN: Lying in bed with at his side in no acute distress. CV: Regular rate and rhythm without obvious MGR. LUNGS: Clear to auscultation bilaterally. No wheezes, crackles, rubs. EXT: No cyanosis. No calf tenderness. No edema. NEURO/PSYCH: AAO 3. Normal speech and judgment. Patient able to move all extremities. Hospital Course Patient is a 71-year-old male with a history significant of urinary bladder cancer, was admitted due to worsening back pain that was suspected to be due to metastasis. Found to have metastatic bladder cancer involving lungs, kidneys. Patient underwent renal biopsy which confirmed transitional cell carcinoma. Patient was then started on radiation therapy. During hospitalization, pain control was very difficult. Was started on long-acting morphine but then became altered which was likely due to opiate overdose. Patient was then started on short acting pain medication, Dilaudid 2 mg every 2 hours and did not require IV breakthrough medication. Once pain management was controlled and patient continued to have bowel movements, he was discharged in stable condition. Pt Condition on Discharge: Stable Discharge Disposition: Disch w/ Home Health Serv Discharge Instructions DIET: Follow Instructions for: As Tolerated, No Restrictions Activities you can perform: Regular-No Restrictions Follow up Referrals: Appointment for Follow Up - 1 Week with PCP Oncology - 2-3 Days with Obi Warner MD New Medications: Hospital Bed - Manual (Hospital Bed - Manual) 1 Ea Ea 1 EA .ROUTE DIRECTED #1 EA Misc. Devices (Roller Walker) 1 Mis Mis 1 EA .ROUTE NOW #1 EA Ondansetron Odt (Zofran Odt) 4 Mg Tab 4 MG SL Q6HR PRN Nausea/Vomiting #30 Ref 0 TAB Wheelchair (Wheelchair) 1 Mis Mis 1 EA .ROUTE DIRECTED #1 Ref 0 EA Hydromorphone (Dilaudid) 2 Mg Tab 2 MG PO Q2H PRN PAIN SCALE 1 TO 8 #90 TAB Magnesium Hydroxide Liq (Milk of Magnesia Liq) 400 Mg/5 Ml Susp 30 ML PO Q12H PRN CONSTIPATION #1 BOTTLE Polyethylene Glycol 3350 Powder (Polyethylene Glycol 3350 Powder) 17 Gm Pow 17 GM PO DAILY #1 BOTTLE Continued Medications: Atorvastatin (Atorvastatin) 20 Mg Tab 20 MG PO HS Cholesterol Management #30 Ref 0 TAB Dabigatran (Pradaxa) 150 Mg Cap 150 MG PO BID Blood Clot Prevention #60 Ref 0 CAP Docusate Sodium (Stool Softener) 100 Mg Cap 1 TAB PO EVERY OTHER DAY Metoprolol Tartrate (Metoprolol Tartrate) 50 Mg Tab 50 MG PO BID #60 Ref 0 TAB Nifedipine ER 24 HR (Nifedipine ER 24 HR) 90 Mg Tab 90 MG PO BID #30 Ref 0 TAB Omeprazole (Omeprazole) 40 Mg Cap 40 MG PO DAILY #30 Ref 0 CAP Discontinued Medications: Oxycodone-Acetaminophen (Percocet) 5-325 mg Tab 1-2 TAB PO Q6H PRN PAIN #30 Ref 0 TAB Glenis Jacobsen MD R2 Nov 12, 2016 16:05
== END 2016-11-12 17:19 | disposition home or self-care (01) | DRG 542 ==
LOC: NEPE 09:13 → NEDA 10:41 → HOCB 16:37 → HIMW 11-06 16:30 → HOCB 11-09 11:58 → HOCA 11-09 16:43
PROVIDERS: ADMIT Family Medicine; ATTEND Family Medicine
PROC: 0TB03ZX Excision of Right Kidney, Percutaneous Approach, Diagnostic (ICD-10-PCS; principal; 2016-11-03)
PROC: DPYC7ZZ Contact Radiation of Other Bone (ICD-10-PCS; 2016-11-08)
DX: C79.51 Secondary malignant neoplasm of bone (principal); G92 Toxic encephalopathy; J90 Pleural effusion, not elsewhere classified; N17.9 Acute kidney failure, unspecified; E87.2 Acidosis; C64.1 Malignant neoplasm of right kidney, except renal pelvis; C78.01 Secondary malignant neoplasm of right lung; E87.1 Hypo-osmolality and hyponatremia; N13.30 Unspecified hydronephrosis; C67.9 Malignant neoplasm of bladder, unspecified; G89.3 Neoplasm related pain (acute) (chronic); I48.91 Unspecified atrial fibrillation; M51.26 Other intervertebral disc displacement, lumbar region; R09.02 Hypoxemia; M43.16 Spondylolisthesis, lumbar region; K21.9 Gastro-esophageal reflux disease without esophagitis; E78.5 Hyperlipidemia, unspecified; I10 Essential (primary) hypertension; K59.03 Drug induced constipation; T40.2X5A Adverse effect of other opioids, initial encounter; E78.00 Pure hypercholesterolemia, unspecified; N48.89 Other specified disorders of penis; M19.90 Unspecified osteoarthritis, unspecified site; F32.9 Major depressive disorder, single episode, unspecified; T40.601A Poisoning by unspecified narcotics, accidental (unintentional), initial encounter; Z80.3 Family history of malignant neoplasm of breast; Z85.820 Personal history of malignant melanoma of skin; Z85.828 Personal history of other malignant neoplasm of skin; Z96.641 Presence of right artificial hip joint
CPT/HCPCS: 36600; 50200; 70450; 71010; 71250; 71275; 74176; 74177; 77012; 77263; 77290; 77295; 77300; 77334; 77336; 77387; 77412; 77427; 78306; 78320; 78399; 80048; 80053; 80076; 81001; 82140; 82805; 82948; 83605; 83735; 84100; 84443; 85025; 85610; 85730; 87070; 87086; 87205; 87449; 88305; 88341; 88342; 93005; 94150; 94640; 94664; 94667; 94668; 96374; 96375; 99222; A9503; J0696; J2250; J2270; J2405; J2543; J3010; J7030; J7042; J7050; Q0169; Q9967

== ENCOUNTER 2016-11-30 06:07 | Day surgery (SDC) | payer MEDICARE ==
[2016-11-30] VITALS (7 sets, daily range): BP systolic 93–122; BP diastolic 56–78; PULSE 70–84; RESP 16–20; TEMP 98.5; O2SAT 90–95
[~2016-11-30] VITALS: Ht 190.5 cm; Wt 97.7 kg
[~2016-11-30 06:07] MED LIST changes: -CEPH-459 PO; +DILA2TAB2 PO; +HOSP BED2; +MILKSUS PO; -OXYC30TA62 PO; -PERC5TAB12 PO; +POLY17S PO; +ROLLER WALKER1 MI1; -VESI5TAB PO; +WHEEMIS3; +ZOFR4TAB3 SL
[2016-11-30] MEDS ORDERED: FENT100D T-DERMAL (06:43)
[2016-11-30] MEDS ORDERED: VANCOMYCIN 1000 MG/NS 250 ML - implanted port/tunneled catheter IV SCH ×2 (07:15)
[2016-11-30] MEDS ORDERED: ceFAZolin 2 GM PREMIX 50 ML - implanted port/tunneled catheter insertion IV SCH (07:15)
[2016-11-30 07:18] LABS: AUTOMATED NEUTROPHIL # 3.7 TH/MM3 (1.8-7.7); BASOPHIL % 0.3 % (0.0-2.0); EOSINOPHIL # 0.2 TH/MM3 (0-0.4); EOSINOPHIL % 4.2 % (0.0-4.0); HEMATOCRIT 32.8 % (39.0-51.0); HEMO FLAGS DIFF FINAL; LYMPH % 6.5 % (9.0-44.0); LYMPHOCYTE # 0.3 TH/MM3 (1.0-4.8); MEAN CELL VOLUME 90.3 FL (80.0-100.0); MEAN CORPUSCULAR HEMOGLOBIN 31.4 PG (27.0-34.0); MEAN CORPUSCULAR HGB CONC 34.8 % (32.0-36.0); MONO % 8.3 % (0.0-8.0); NEUT % 80.7 % (16.0-70.0); PLATELET COUNT 134 TH/MM3 (150-450); RED BLOOD COUNT 3.63 MIL/MM3 (4.50-5.90); RED CELL DISTRIBUTION WIDTH 14.2 % (11.6-17.2); WHITE BLOOD COUNT 4.6 TH/MM3 (4.0-11.0)
[2016-11-30 07:29] LABS: APTT (PATIENT) 33.4 SEC (24.3-30.1); INTERNATIONAL NORMALIZED RATIO 1.1 RATIO; PROTHROMBIN TIME - PATIENT 12.1 SEC (9.8-11.6)
[2016-11-30] MEDS ORDERED: fentaNYL CITRATE 250 MCG/5 ML AMP ONE (07:49)
[2016-11-30] MEDS ORDERED: MIDAZOLAM HCL 5 MG/5 ML VIAL ONE (07:49)
[2016-11-30] MEDS ORDERED: LIDOCAINE 1%/EPINEPHrine 1:100,000 SOLN 20 ML VIAL ONE (08:06)
[2016-11-30] MEDS ORDERED: SODIUM CHLORIDE 0.9% FLUSH 10 ML FLUSH IVF PRN (09:00)
--- NOTE | 2016-11-30 09:01 | PD.RAD ---
Post Procedure Progress Note Pre Procedure Diagnosis: (1) Atrial fibrillation (2) Metastatic bone cancer Post Procedure Diagnosis: (1) Atrial fibrillation (2) Metastatic bone cancer Procedure Date: Nov 30, 2016 Supervising Radiologist: Celestine Jane JR Proceduralist/Assist: Lora Brito, RT(R)(), Prerna Ledezma RT(R) Anesthesia: Conscious Sedation Plan of Activity Patient to Unit: ROPU Patient Condition: Good See PACS Report for procedural detail/treatment Central Venous Access Device Procedure 1 Right Internal Jugular Infusaport Placement single lumen Sinhala: 8 Findings: Port in good position and functions well. OK to use. Plan F/U with IR or a physician in 10-14 days for a site check. Resume blood thinners tomorrow. Jr. Buck,Celestine Aden MD Nov 30, 2016 09:01
--- NOTE | 2016-11-30 10:50 | RADRPT ---
EXAM DATE/TIME: 11/30/2016 07:50 [facility] COMPARISON: No previous studies available for comparison. INDICATIONS : Patient with malignant neoplasm of bone in need of [id number] placement. MEDICAL HISTORY : Peripheral neuropathy, HTN, A-Fib, Kidney stones, HLD, GERD, Malignant neoplasm of bladder, Anemia, A rthritis SURGICAL HISTORY : Right total hip, Bladder surgery ENCOUNTER: Initial ACUITY: 1 month PAIN SCORE: 6/10 LOCATION: Right flank pain and left shoulder blade FLUORO TIME: 0.4 minutes IMAGE SERIES: 0 SEDATION TIME: 40 minutes ACCESS: Right internal jugular vein SEDATION: 1.) 2 mg midazolam (Versed) IV 2.) 250 mcg fentanyl (Sublimaze) IV Prophylactic antibiotics were administered with appropriate pre-procedure timing. Vancomycin within 2 hours of procedure, Ancef (or alternative) within 1 hour of procedure. DEVICE: 1. 8 Georgian single lumen Bard Power Port PROCEDURE : 1. Continuous pulse oximetry and EKG monitoring. 2. Intravenous conscious sedation. 3. Ultrasound guidance for venous access. 4. Fluoroscopic guided implantable central venous port placement. The patient was placed supine. The neck was prepped in sterile fashion. Full sterile technique was u sed, including cap, mask, sterile gloves and gown, and a large sterile sheet. Hand hygiene and 2% ch lorhexidine Betadine was utilized per protocol for cutaneous antisepsis with appropriate dry time for site. The skin and subcutaneous tissues were infiltrated with local anesthetic solution. Under direct ultrasound guidance, central venous access was accomplished in the targeted vessel. The ultrasound images depicting access guidance were stored and saved to PACS for permanent record. A s ubcutaneous pocket was created using blunt dissection. The port was introduced to the pocket. The c atheter tubing was fed through a subcutaneous tunnel to the venotomy site. The catheter tubing was c ut to a suitable length and then was introduced through a valved Peel-Away sheath and positioned with catheter tubing tip at the cavo-atrial junction level. The pocket incision was closed with subcutic ular Vicryl suture. Steri-Strips were applied. The port was flushed and locked with heparin solutio n per protocol. Sterile dressing was applied to the site. The patient tolerated the procedure well. Conscious sedation was performed with the prescribed dosages and duration as above in the presence of an independent trained radiology nurse to assist in the monitoring of the patient. EKG and oximetry remained stable throughout the procedure. The patient tolerated the procedure well and there were no complications. The patient was sent to post anesthesia recovery in stable condition. CONCLUSION: Uncomplicated ultrasound and fluoroscopic guided implanted central venous port catheter placement as described in detail above. An 8 Georgian Power port was placed. Celestine Jane Jr., MD on November 30, 2016 at 10:48 Board Certified Radiologist. This report was verified electronically.
== END 2016-11-30 11:35 | disposition home or self-care (01) ==
LOC: HROP 06:07 → HRIP 06:09 → HROP 11:35
PROVIDERS: ATTEND Internal Medicine Hematology & Oncology
DX: Z45.2 Encounter for adjustment and management of vascular access device (principal); C79.51 Secondary malignant neoplasm of bone; I48.91 Unspecified atrial fibrillation; I10 Essential (primary) hypertension; G62.9 Polyneuropathy, unspecified; E78.5 Hyperlipidemia, unspecified; K21.9 Gastro-esophageal reflux disease without esophagitis; Z85.51 Personal history of malignant neoplasm of bladder; Z87.442 Personal history of urinary calculi
CPT/HCPCS: 36561; 76937; 77001; 85025; 85610; 85730; 99152; 99153; C1788; J0690; J1642; J2250; J3010; J3370; J7050